=== PATIENT | female | born 1930 | race Caucasian/White ===

== ENCOUNTER → 2016-08-23 | Outpatient (CLI) | payer OTHER, MEDICARE ==
[~2016-08-23] MED LIST: ACET-1256 PO; ALPR0.25 PO; AMOX875T PO; ASCO500T16 PO; B COCAP3 PO; CALC500C70 PO; CITA20TA9 PO; CLB/200 PO; CMD2 PO; DOCU100C31 PO; EVS60 PO; FERR1TAB13 PO; FERR1TAB23 PO; GLUC1CAP35 PO; HYDR-4079 PO; HYDR-5688 PO; MELO7.5T5 PO; MULT-116 PO; MULT-506 PO; NITR1CAP32 PO; NYSS/ PO; PANT40TA PO; RALO60TA12 PO; SENN-61 PO; SIMV40TA4 PO; THIA100T11 PO; WARF2.5T8 PO; WARF2TAB PO; XNX5 PO
[2016-08-23 17:00] LABS: BASO % 0.2 %; BASO ABS # 0.02 K/uL (0-0.2); EOS % 0.7 %; HEMATOCRIT 45.8 % (37-47); IG% 0.1 %; LYMPH % 26.9 %; LYMPH ABS # 2.26 K/uL (1.2-3.4); MEAN CELL VOLUME 85.8 fL (80-100); MEAN CORPUSCULAR HEMOGLOBIN 27.5 pg (25-34); MEAN CORPUSCULAR HGB CONC 32.1 g/dl (32-36); MONO % 5.4 %; NEUT % 66.7 %; PLATELET COUNT 269 K/uL (130-400); RED BLOOD COUNT 5.34 M/uL (4.2-5.4); WHITE BLOOD COUNT 8.41 K/uL (4.8-10.8)
[2016-08-23 17:52] LABS: ANISOCYTOSIS PRESENT; COMPLETE YES
== END | disposition home or self-care (01) ==
LOC: C.LABBC 14:43
PROVIDERS: ATTEND Internal Medicine
DX: D50.9 Iron deficiency anemia, unspecified (principal)

== ENCOUNTER → 2016-10-04 | Outpatient (CLI) | payer OTHER, MEDICARE ==
[2016-10-04 14:53] LABS: BASO % 0.1 %; BASO ABS # 0.01 K/uL (0-0.2); COMPLETE YES; HEMATOCRIT 44.1 % (37-47); IG% 0.2 %; LYMPH % 29.9 %; LYMPH ABS # 2.75 K/uL (1.2-3.4); MEAN CELL VOLUME 89.3 fL (80-100); MEAN CORPUSCULAR HEMOGLOBIN 29.1 pg (25-34); MEAN CORPUSCULAR HGB CONC 32.7 g/dl (32-36); MEAN PLATELET VOLUME 10.2 fL (7.4-10.4); MONO % 6.4 %; NEUT % 62.4 %; PLATELET COUNT 255 K/uL (130-400); RED BLOOD COUNT 4.94 M/uL (4.2-5.4); WHITE BLOOD COUNT 9.21 K/uL (4.8-10.8)
[2016-10-04 15:33] LABS: FERRITIN 27.4 ng/ml (8.0-388.0)
== END | disposition home or self-care (01) ==
LOC: C.LABBC 11:45
PROVIDERS: ATTEND Internal Medicine
DX: D50.9 Iron deficiency anemia, unspecified (principal)

== ENCOUNTER → 2016-11-13 | Outpatient (CLI) | payer OTHER, MEDICARE ==
[~2016-11-13] MED LIST changes: -EVS60 PO; -RALO60TA12 PO; +RALO60TA30 PO; +RALO60TA31 PO
== END | disposition home or self-care (01) ==
LOC: C.RDSM 11:45
PROVIDERS: ATTEND Physical Medicine & Rehabilitation Sports Medicine
DX: M16.11 Unilateral primary osteoarthritis, right hip (principal)

== ENCOUNTER → 2016-11-23 | Outpatient (CLI) | payer OTHER, MEDICARE ==
[2016-11-23 14:59] LABS: BASO % 0.5 %; BASO ABS # 0.04 K/uL (0-0.2); COMPLETE YES; EOS % 2.6 %; HEMATOCRIT 41.2 % (37-47); IG% 0.2 %; LYMPH % 31.8 %; LYMPH ABS # 2.55 K/uL (1.2-3.4); MEAN CELL VOLUME 96.9 fL (80-100); MEAN CORPUSCULAR HEMOGLOBIN 31.3 pg (25-34); MEAN CORPUSCULAR HGB CONC 32.3 g/dl (32-36); MONO % 7.1 %; NEUT % 57.8 %; PLATELET COUNT 275 K/uL (130-400); RED BLOOD COUNT 4.25 M/uL (4.2-5.4); WHITE BLOOD COUNT 8.02 K/uL (4.8-10.8)
[2016-11-23 15:16] LABS: CALCIUM 10.1 mg/dl (8.5-10.1)
[2016-11-23 15:19] LABS: PROTHROMBIN TIME (PATIENT) 10.4 SECONDS (9.0-12.0)
[2016-11-23 15:19] LABS: ALKALINE PHOSPHATASE 78 U/L (45-117); ALT/SGPT 32 U/L (12-78); BLOOD UREA NITROGEN 30 mg/dl (7-18); CARBON DIOXIDE 30 mmol/L (21-32); CHLORIDE 107 mmol/L (98-107); CREATININE 0.83 mg/dl (0.60-1.20); GLUCOSE 85 mg/dl (70-99); POTASSIUM 4.1 mmol/L (3.5-5.1); SODIUM 142 mmol/L (136-145); TOTAL IRON BINDING CAPACITY 385 mcg/dl (250-450)
[2016-11-23 15:32] LABS: ALB/GLOB RATIO 1.1 (0.9-2); AST/SGOT 24 U/L (15-37); FERRITIN 41.5 ng/ml (8.0-388.0)
== END | disposition home or self-care (01) ==
LOC: C.LABBC 12:21
PROVIDERS: ATTEND Internal Medicine
DX: D50.9 Iron deficiency anemia, unspecified (principal)

== ENCOUNTER 2016-12-24 04:01 | Inpatient (IN) | payer OTHER, MEDICARE ==
[~2016-12-24] VITALS: Ht 160 cm; Wt 60.7 kg
[~2016-12-24 04:01] MED LIST changes: -ALPR0.25 PO; -AMOX875T PO; -ASCO500T16 PO; -CITA20TA9 PO; -CLB/200 PO; -CMD2 PO; -DOCU100C31 PO; -FERR1TAB13 PO; -FERR1TAB23 PO; -GLUC1CAP35 PO; -HYDR-4079 PO; -MELO7.5T5 PO; -MULT-116 PO; -NITR1CAP32 PO; -NYSS/ PO; -PANT40TA PO; -RALO60TA30 PO; -SENN-61 PO; -THIA100T11 PO; -WARF2.5T8 PO
[2016-12-24] MEDS ORDERED: ONDANSETRON INJ 2 MG/ML 2 ML VIAL IV STA (04:22)
[2016-12-24] MEDS ORDERED: SODIUM CHLORIDE 0.9% 1000ML 1,000 ML IV STA ×2 (04:22)
[2016-12-24] MEDS ORDERED: ACETAMINOPHEN 500 MG TAB PO STA (04:22)
[2016-12-24] MEDS ORDERED: IMIPENEM/CILASTATIN IV 500 MG in DEXTROSE 5% 100ML 100 ML IV STA (04:47)
[2016-12-24 04:49] LABS: BASO % 0.1 %; BASO ABS # 0.02 K/uL (0-0.2); COMPLETE YES; EOS % 4.6 %; HEMATOCRIT 38.2 % (37-47); IG% 0.3 %; LYMPH % 1.9 %; LYMPH ABS # 0.26 K/uL (1.2-3.4); MEAN CELL VOLUME 94.6 fL (80-100); MEAN CORPUSCULAR HEMOGLOBIN 30.4 pg (25-34); MEAN CORPUSCULAR HGB CONC 32.2 g/dl (32-36); MEAN PLATELET VOLUME 9.2 fL (7.4-10.4); MONO % 5.5 %; NEUT % 87.6 %; PLATELET COUNT 239 K/uL (130-400); RED BLOOD COUNT 4.04 M/uL (4.2-5.4)
--- NOTE | 2016-12-24 04:57 | EMERGENCY ROOM VISIT NOTE ---
ED Visit Note First contact with patient: 04:16 I agree with the physician assistants workup of this patient. Patient was seen by me at bedside at 4:50 AM. I spoke with the patient's family there is a concern for the patient to be septic possibility of urinary tract infection she is status post surgery and recently had a urinary tract infection with multiple different antibiotics but no reported urine culture performed. Patient is tachycardic but normotensive at 4:56 AM we will work the patient up to make sure that she does not have a significant infection Current/Historical Medications Scheduled B Complex W/ C (Vitamin B Complex-C), 1 CAP PO BID Calcium/Vitamin D (Os-Ari 500 Plus D), 1 TAB PO BID Multivitamin (Multivitamin), 1 TAB PO BID Raloxifene (Evista), 1 TAB PO Q2D Simvastatin (Zocor), 40 MG PO Q2D Warfarin Sodium (Coumadin), 4 MG PO DAILY Scheduled PRN Acetaminophen (Tylenol), 2 TAB PO BID PRN for Pain Alprazolam (Alprazolam), 1 DOSE PO UD PRN for ANXIETY Hydrocodone/Acetaminophen 5MG/325MG (K[place]haw 5MG/325MG), 1-2 TABLETS PO Q6 PRN for Pain Allergies Coded Allergies: No Known Allergies (Unverified , 12/20/16) Vital Signs Date Time Temp Pulse Resp B/P (MAP) Pulse Ox O2 Delivery O2 Flow Rate FiO2 12/24/16 04:45 97 Nasal Cannula 2.0 Laboratory Results 12/24/16 04:20 Red Blood Count 4.04, Mean Corpuscular Volume 94.6, Mean Corpuscular Hemoglobin 30.4, Mean Corpuscular Hemoglobin Concent 32.2, Mean Platelet Volume 9.2, Neutrophils (%) (Auto) 87.6, Lymphocytes (%) (Auto) 1.9, Monocytes (%) (Auto) 5.5, Eosinophils (%) (Auto) 4.6, Basophils (%) (Auto) 0.1, Neutrophils # (Auto) 12.27, Lymphocytes # (Auto) 0.26, Monocytes # (Auto) 0.77, Eosinophils # (Auto) 0.64, Basophils # (Auto) 0.02 Test 12/24/16 04:20 12/24/16 04:38 White Blood Count 14.00 K/uL (4.8-10.8) Red Blood Count 4.04 M/uL (4.2-5.4) Hemoglobin 12.3 g/dL (12.0-16.0) Hematocrit 38.2 % (37-47) Mean Corpuscular Volume 94.6 fL (80-100) Mean Corpuscular Hemoglobin 30.4 pg (25-34) Mean Corpuscular Hemoglobin Concent 32.2 g/dl (32-36) Platelet Count 239 K/uL (130-400) Mean Platelet Volume 9.2 fL (7.4-10.4) Neutrophils (%) (Auto) 87.6 % Lymphocytes (%) (Auto) 1.9 % Monocytes (%) (Auto) 5.5 % Eosinophils (%) (Auto) 4.6 % Basophils (%) (Auto) 0.1 % Neutrophils # (Auto) 12.27 K/uL (1.4-6.5) Lymphocytes # (Auto) 0.26 K/uL (1.2-3.4) Monocytes # (Auto) 0.77 K/uL (0.11-0.59) Eosinophils # (Auto) 0.64 K/uL (0-0.5) Basophils # (Auto) 0.02 K/uL (0-0.2) RDW Standard Deviation 46.3 fL (36.4-46.3) RDW Coefficient of Variation 13.3 % (11.5-14.5) Immature Granulocyte % (Auto) 0.3 % Immature Granulocyte # (Auto) 0.04 K/uL (0.00-0.02) Bedside Lactic Acid Venous 1.17 mmol/L (0.90-1.70) Departure Information Referrals Jhoan Mullen M.D. (PCP) Patient Instructions My [facility] [address]
[2016-12-24 04:59] LABS: PARTIAL THROMBOPLASTIN RATIO 1.4; PROTHROMBIN TIME (PATIENT) 22.6 SECONDS (9.0-12.0)
[2016-12-24 05:23] LABS: ALT/SGPT 22 U/L (12-78); AST/SGOT 24 U/L (15-37); BLOOD UREA NITROGEN 24 mg/dl (7-18); BUN/CREATININE RATIO 24.8 (10-20); CALCIUM 8.7 mg/dl (8.5-10.1); CARBON DIOXIDE 28 mmol/L (21-32); CHLORIDE 102 mmol/L (98-107); CREATININE 0.95 mg/dl (0.60-1.20); GLUCOSE 123 mg/dl (70-99); MAGNESIUM 2.1 mg/dl (1.8-2.4); POTASSIUM 4.1 mmol/L (3.5-5.1); SODIUM 138 mmol/L (136-145)
[2016-12-24] MEDS ORDERED: DAPTOMYCIN IV STA (05:23)
[2016-12-24] MEDS ORDERED: SODIUM CHLORIDE 0.9% IV STA (05:23)
[2016-12-24] MEDS ORDERED: ALPRAZOLAM 0.5 MG TAB PO STA (05:28)
[2016-12-24 05:34] LABS: ALB/GLOB RATIO 0.7 (0.9-2); ALKALINE PHOSPHATASE 78 U/L (45-117); THYROID STIMULATING HORMONE 0.653 uIu/ml (0.300-4.500)
[2016-12-24] MEDS ORDERED: DOCU100C31 PO (05:57)
[2016-12-24] MEDS ORDERED: MULT-116 PO (05:58)
[2016-12-24] MEDS ORDERED: NITR1CAP32 PO (06:00)
[2016-12-24] MEDS ORDERED: RALO60TA30 PO (06:04)
[2016-12-24] MEDS ORDERED: WARF2.5T8 PO (06:07)
--- NOTE | 2016-12-24 06:10 | EMERGENCY ROOM VISIT NOTE ---
History First contact with patient: 04:16 Chief Complaint: FEVER Stated Complaint: FEVER History of Present Illness The patient is a 86 year old female who presents to the Emergency Room with complaints of fever, headache, myalgias, nausea for the past day. Patient had hip replacement surgery 3 days ago. She had a UTI prior to the surgery. Patient was started on Macrobid yesterday by the [facility]. Patient states her symptoms got much worse. Patient denies chest pain, dyspnea, abdominal pain, vomiting, diarrhea, back pain, neck stiffness, sore throat, cough. Review of Systems See HPI for pertinent positives & negatives. A total of 10 systems reviewed and were otherwise negative. Past Medical/Surgical History Medical Problems: (1) DJD (degenerative joint disease) of hip Anxiety, depression, hyperlipidemia, osteoporosis Family History Emphysema Heart disease Social History Smoking Status: Never Smoker Drug Use: none Marital Status: Housing Status: lives with family Occupation Status: retired Current/Historical Medications Scheduled B Complex W/ C (Vitamin B Complex-C), 1 CAP PO BID Calcium/Vitamin D (Os-Ari 500 Plus D), 1 TAB PO BID Docusate Sodium (Docusate Sodium), 100 MG PO BID Multiple Vitamins W/ Minerals (Theragran-M), 1 TAB PO QAM Multivitamin (Multivitamin), 1 TAB PO BID Nitrofurantoin Macrocrystals (Macrodantin), 100 MG PO BID Raloxifene (Evista), 1 TAB PO Q2D Raloxifene Hcl (Evista), 60 MG PO Q2D Simvastatin (Zocor), 40 MG PO Q2D Warfarin Sod (Jantoven), 2.5 MG PO DAILY Warfarin Sodium (Coumadin), 4 MG PO DAILY Scheduled PRN Acetaminophen (Tylenol), 2 TAB PO BID PRN for Pain Alprazolam (Alprazolam), 1 DOSE PO UD PRN for ANXIETY Hydrocodone/Acetaminophen 5MG/325MG ([place] 5MG/325MG), 1-2 TABLETS PO Q6 PRN for Pain Allergies Coded Allergies: No Known Allergies (Unverified , 12/20/16) Physical Exam Vital Signs Date Time Temp Pulse Resp B/P (MAP) Pulse Ox O2 Delivery O2 Flow Rate FiO2 12/24/16 05:11 122 21 147/68 97 Nasal Cannula 2.0 12/24/16 04:45 97 Nasal Cannula 2.0 12/24/16 04:15 88 Room Air 12/24/16 04:15 39.5 130 20 134/63 95 Nasal Cannula 2.0 Physical Exam VITALS: Vitals are noted on the nurse's note and reviewed by myself. Vital signs tachycardic. GENERAL: Pleasant elderly female mildly ill-appearing SKIN: The skin was without rashes, erythema, edema, or bruising. There is no tenting of the skin. Capillary reflex less than 2 seconds. HEAD: Normocephalic atraumatic. EARS: External auditory canals clear, tympanic membranes pearly cueva without erythema or effusion bilaterally. EYES: Pupils equal round and reactive to light and accommodation. Conjunctivae without injection, sclerae without icterus. Extraocular movements intact. NOSE: Patent, turbinates without inflammation or discharge. No sinus tenderness. MOUTH: Mucous membranes mildly dry pharynx without erythema or exudate. Uvula midline. Airway patent. Tongue does not deviate. NECK: Supple without nuchal rigidity. No lymphadenopathy. No thyromegaly. Cervical spine is nontender. No JVD. HEART: Regular rate and rhythm, tachycardic LUNGS: Clear to auscultation bilaterally without wheezes, rales or rhonchi. No dullness to percussion. No retractions or accessory muscle use. ABDOMEN: Positive bowel sounds x 4. Normal tympanic percussion. Soft, nontender, without masses or organomegaly. Ragsdale sign negative. No guarding or rebound tenderness. MUSCULOSKELETAL: No muscle atrophy, erythema, or edema noted. Right hip anne in place without signs of infection NEURO: Patient was alert and oriented to person place and time. Normal sensation to light and sharp touch. No focal neurological deficits. Medical Decision & Procedures Laboratory Results 12/24/16 04:20 Red Blood Count 4.04, Mean Corpuscular Volume 94.6, Mean Corpuscular Hemoglobin 30.4, Mean Corpuscular Hemoglobin Concent 32.2, Mean Platelet Volume 9.2, Neutrophils (%) (Auto) 87.6, Lymphocytes (%) (Auto) 1.9, Monocytes (%) (Auto) 5.5, Eosinophils (%) (Auto) 4.6, Basophils (%) (Auto) 0.1, Neutrophils # (Auto) 12.27, Lymphocytes # (Auto) 0.26, Monocytes # (Auto) 0.77, Eosinophils # (Auto) 0.64, Basophils # (Auto) 0.02 12/24/16 04:20 Test 12/24/16 04:20 12/24/16 04:38 White Blood Count 14.00 K/uL (4.8-10.8) Red Blood Count 4.04 M/uL (4.2-5.4) Hemoglobin 12.3 g/dL (12.0-16.0) Hematocrit 38.2 % (37-47) Mean Corpuscular Volume 94.6 fL (80-100) Mean Corpuscular Hemoglobin 30.4 pg (25-34) Mean Corpuscular Hemoglobin Concent 32.2 g/dl (32-36) Platelet Count 239 K/uL (130-400) Mean Platelet Volume 9.2 fL (7.4-10.4) Neutrophils (%) (Auto) 87.6 % Lymphocytes (%) (Auto) 1.9 % Monocytes (%) (Auto) 5.5 % Eosinophils (%) (Auto) 4.6 % Basophils (%) (Auto) 0.1 % Neutrophils # (Auto) 12.27 K/uL (1.4-6.5) Lymphocytes # (Auto) 0.26 K/uL (1.2-3.4) Monocytes # (Auto) 0.77 K/uL (0.11-0.59) Eosinophils # (Auto) 0.64 K/uL (0-0.5) Basophils # (Auto) 0.02 K/uL (0-0.2) RDW Standard Deviation 46.3 fL (36.4-46.3) RDW Coefficient of Variation 13.3 % (11.5-14.5) Immature Granulocyte % (Auto) 0.3 % Immature Granulocyte # (Auto) 0.04 K/uL (0.00-0.02) Prothrombin Time 22.6 SECONDS (9.0-12.0) Prothromb Time International Ratio 2.0 (0.9-1.1) Activated Partial Thromboplast Time 35.5 SECONDS (21.0-31.0) Partial Thromboplastin Ratio 1.4 Anion Gap 8.0 mmol/L (3-11) Est Creatinine Clear Calc Drug Dose 36.5 ml/min Estimated GFR () 63.7 Estimated GFR (Non- 55.0 BUN/Creatinine Ratio 24.8 (10-20) Calcium Level 8.7 mg/dl (8.5-10.1) Magnesium Level 2.1 mg/dl (1.8-2.4) Total Bilirubin 0.6 mg/dl (0.2-1) Aspartate Amino Transf (AST/SGOT) 24 U/L (15-37) Alanine Aminotransferase (ALT/SGPT) 22 U/L (12-78) Alkaline Phosphatase 78 U/L (45-117) Troponin I < 0.015 ng/ml (0-0.045) Total Protein 6.9 gm/dl (6.4-8.2) Albumin 2.8 gm/dl (3.4-5.0) Globulin 4.1 gm/dl (2.5-4.0) Albumin/Globulin Ratio 0.7 (0.9-2) Thyroid Stimulating Hormone (TSH) 0.653 uIu/ml (0.300-4.500) Bedside Lactic Acid Venous 1.17 mmol/L (0.90-1.70) Medications Administered Medications (Trade) Dose Ordered Sig/Alexa Route Start Time Stop Time Status Last Admin Dose Admin Acetaminophen (Tylenol Tab) 1,000 mg NOW STAT PO 12/24/16 04:22 12/24/16 04:24 DC 12/24/16 05:55 1,000 MG Ondansetron HCl (Zofran Inj) 4 mg NOW STAT IV 12/24/16 04:22 12/24/16 04:24 DC 12/24/16 05:33 4 MG Sodium Chloride 1,000 ml @ 999 mls/hr Q1H1M STAT IV 12/24/16 04:22 12/24/16 05:22 DC 12/24/16 05:34 999 MLS/HR Alprazolam (Xanax Tab) 0.5 mg NOW STAT PO 12/24/16 05:28 12/24/16 05:29 DC 12/24/16 05:55 0.5 MG ED Course Prior records/ancillary studies reviewed. Triage Nursing notes reviewed. Additional history obtained from family. The patient's history was concerning for fever. Differential diagnosis: Etiologies such as sepsis, UTI, pneumonia, metabolic, electrolyte abnormalities , cardiac sources, intracerebral event, toxicologic, neurologic, as well as others were entertained. Physical examination: As above. Pertinent findings were tachycardic, hypoxic. Vital signs reviewed and revealed febrile, hypoxic. ER treatment provided: IV fluid resuscitation with Normal saline solution, 1000 mL bolus. IV fluid hydration with Normal saline solution at 125 mL/hr. Blood and urine cultures Antibiotics: Primaxin, daptomycin On reassessment the patient vital signs improved. Diagnostics interpretation by me: ECG: Normal sinus, normal intervals, right bundle branch block, no acute ST-T wave changes, rate of 127. Impression right bundle branch block sinus tachycardia interpreted by myself The labs revealed leukocytosis on CBC. Chemistry panel revealed hyperglycemia without DKA. LFTs revealed. Cardiac enzymes were negative. Serum Lactate measurement was negative Blood and urine cultures are pending. Imaging studies: Chest xray revealed no pneumothorax, free air or consolidation per my interpretation Exam and history seem consistent with sepsis. Patient was started on antibiotics and IV fluids. She was reassessed multiple times. She will be evaluated by medicine for possible admission. Pt was unable to give a urine. This is most likely the source. She will be evaluated by medicine. Consultation: A consultation was placed with Dr Bower, hospitalist. The case was discussed and diagnostics were reviewed. The patient was evaluated in the ER for further treatment. Case reviewed with my attending Medical Decision As above Impression Primary Impression: Sepsis Departure Information Dispostion Being Evaluated By Hospitalist Condition FAIR Referrals Jhoan Mullen M.D. (PCP) Patient Instructions My [facility] Problem Qualifiers Primary Impression: Sepsis Sepsis type: sepsis due to unspecified organism Qualified Codes: A41.9 - Sepsis, unspecified organism
[2016-12-24] MEDS ORDERED: HYDR-4079 PO (06:13)
[2016-12-24] MEDS ORDERED: HYDR-5688 PO (06:14)
[2016-12-24] MEDS ORDERED: SENN-61 PO (06:17)
[2016-12-24] MEDS ORDERED: THIA100T11 PO (06:20)
[2016-12-24] MEDS ORDERED: ASCO500T16 PO (06:21)
[2016-12-24] MEDS ORDERED: IBUPROFEN 600 MG TAB PO STA (06:28)
[2016-12-24] MEDS ORDERED: ONDANSETRON INJ 2 MG/ML 2 ML VIAL IV PRN (06:30)
--- NOTE | 2016-12-24 06:41 | History and Physical ---
History & Physical Date & Time of Service: Dec 24, 2016 at 06:23 Chief Complaint: FEVER Primary Care Physician: Jhoan Mullen M.D. History of Present Illness Source: patient, family 86-year-old female with a past medical history of hyperlipidemia, osteopenia, anxiety and depression status post right hip replacement performed 3 days ago presented to the ER with complaints of fever and chills which started yesterday. The patient was currently at [facility]. Complains of fevers and chills with abdominal cramping. Has some nausea but no episodes of vomiting. Denies any diarrhea. Denies any coughing, difficulty breathing, chest pain. She denies any excessive pain along the incision site of her hip and has been working with PT without any difficulty. She was treated for urinary tract infection prior to the surgery. Per ER notes, she was treated with Macrobid at [facility] yesterday she was shivering Past Medical/Surgical History Anxiety, depression, hyperlipidemia, osteopenia, right hip replacement Family History Emphysema Heart disease Social History Smoking Status: Never Smoker Drug Use: none Marital Status: Occupational Status: retired Multi-Drug Resistant Organisms History of MDRO: No Allergies Coded Allergies: No Known Allergies (Unverified , 12/20/16) Home Medications Scheduled Ascorbic Acid (Ascorbic Acid), Unknown Dose PO BID Calcium/Vitamin D (Os-Ari 500 Plus D), 1 TAB PO BID Docusate Sodium (Docusate Sodium), 100 MG PO BID Multiple Vitamins W/ Minerals (Theragran-M), 1 TAB PO QAM Nitrofurantoin Macrocrystals (Macrodantin), 100 MG PO BID Raloxifene Hcl (Evista), 60 MG PO Q2D Simvastatin (Zocor), 40 MG PO Q2D Thiamine Hcl (Vitamin B-1), Unknown Dose PO BID Warfarin Sod (Jantoven), 2.5 MG PO DAILY Scheduled PRN Acetaminophen (Tylenol), 2 TAB PO BID PRN for Pain Alprazolam (Alprazolam), 1 DOSE PO DAILY PRN for ANXIETY Hydrocodone/Acetaminophen 10MG/325MG ([place] 10MG/325MG), 1 TAB PO Q4H PRN for PAIN # 7-10 Hydrocodone/Acetaminophen 5MG/325MG ([place] 5MG/325MG), 1 TABLET PO Q4H PRN for PAIN # 4-6 Senna (Senokot), 1 TAB PO DAILY PRN for Constipation Review of Systems Constitutional: + fever, + chills, + sweats Eyes: No worsening of vision ENT: + hearing loss Respiratory: No cough, No sputum, No shortness of breath Cardiovascular: No chest pain Abdomen: + problem reported (lower abdominal cramping) Musculoskeletal: No joint pain, No muscle pain Genitourinary - Female: No dysuria, No urinary frequency, No urinary urgency Neurologic: No memory loss Psychiatric: No depression symptoms Endocrine: No fatigue Hematologic / Lymphatic: No abnormal bleeding/bruising Integumentary: + rash (lower extemities) Physical Exam Vital Signs Date Time Temp Pulse Resp B/P (MAP) Pulse Ox O2 Delivery O2 Flow Rate FiO2 12/24/16 05:11 122 21 147/68 97 Nasal Cannula 2.0 12/24/16 04:45 97 Nasal Cannula 2.0 12/24/16 04:15 88 Room Air 12/24/16 04:15 39.5 130 20 134/63 95 Nasal Cannula 2.0 General Appearance: WD/WN, + mild distress Head: normocephalic ENT: + pertinent finding (hearing loss) Neck: supple Respiratory/Chest: chest non-tender, lungs clear, normal breath sounds, no respiratory distress, no accessory muscle use Cardiovascular: + tachycardia Abdomen/GI: normal bowel sounds, soft, + tenderness (mild suprapubic) Extremities/Musculoskelatal: no pedal edema Neurologic/Psych: alert, normal mood/affect, oriented x 3 Skin: + rash (lacy maclar rash on lower extremities) Diagnostics Laboratory Results Results Past 24 Hours Test 12/24/16 04:20 12/24/16 04:38 Range/Units White Blood Count 14.00 4.8-10.8 K/uL Red Blood Count 4.04 4.2-5.4 M/uL Hemoglobin 12.3 12.0-16.0 g/dL Hematocrit 38.2 37-47 % Mean Corpuscular Volume 94.6 80-100 fL Mean Corpuscular Hemoglobin 30.4 25-34 pg Mean Corpuscular Hemoglobin Concent 32.2 32-36 g/dl Platelet Count 239 130-400 K/uL Mean Platelet Volume 9.2 7.4-10.4 fL Neutrophils (%) (Auto) 87.6 % Lymphocytes (%) (Auto) 1.9 % Monocytes (%) (Auto) 5.5 % Eosinophils (%) (Auto) 4.6 % Basophils (%) (Auto) 0.1 % Neutrophils # (Auto) 12.27 1.4-6.5 K/uL Lymphocytes # (Auto) 0.26 1.2-3.4 K/uL Monocytes # (Auto) 0.77 0.11-0.59 K/uL Eosinophils # (Auto) 0.64 0-0.5 K/uL Basophils # (Auto) 0.02 0-0.2 K/uL RDW Standard Deviation 46.3 36.4-46.3 fL RDW Coefficient of Variation 13.3 11.5-14.5 % Immature Granulocyte % (Auto) 0.3 % Immature Granulocyte # (Auto) 0.04 0.00-0.02 K/uL Prothrombin Time 22.6 9.0-12.0 SECONDS Prothromb Time International Ratio 2.0 0.9-1.1 Activated Partial Thromboplast Time 35.5 21.0-31.0 SECONDS Partial Thromboplastin Ratio 1.4 Sodium Level 138 136-145 mmol/L Potassium Level 4.1 3.5-5.1 mmol/L Chloride Level 102 98-107 mmol/L Carbon Dioxide Level 28 21-32 mmol/L Anion Gap 8.0 3-11 mmol/L Blood Urea Nitrogen 24 7-18 mg/dl Creatinine 0.95 0.60-1.20 mg/dl Est Creatinine Clear Calc Drug Dose 36.5 ml/min Estimated GFR () 63.7 Estimated GFR (Non- 55.0 BUN/Creatinine Ratio 24.8 10-20 Random Glucose 123 70-99 mg/dl Calcium Level 8.7 8.5-10.1 mg/dl Magnesium Level 2.1 1.8-2.4 mg/dl Total Bilirubin 0.6 0.2-1 mg/dl Aspartate Amino Transf (AST/SGOT) 24 15-37 U/L Alanine Aminotransferase (ALT/SGPT) 22 12-78 U/L Alkaline Phosphatase 78 45-117 U/L Troponin I < 0.015 0-0.045 ng/ml Total Protein 6.9 6.4-8.2 gm/dl Albumin 2.8 3.4-5.0 gm/dl Globulin 4.1 2.5-4.0 gm/dl Albumin/Globulin Ratio 0.7 0.9-2 Thyroid Stimulating Hormone (TSH) 0.653 0.300-4.500 uIu/ml Bedside Lactic Acid Venous 1.17 0.90-1.70 mmol/L Microbiology Results 12/24/16 Blood Culture, Received Pending 12/24/16 Blood Culture, Received Pending EKG Sinus tachycardia with occasional PVC. RBBB [id number] Impression Assessment and Plan 86-year-old female with a past medical history of hyperlipidemia, osteopenia, anxiety and depression status post right hip replacement performed 3 days ago presented to the ER with complaints of fever and chills which started yesterday. The patient was recently admitted for right ОЛЕГ about 3 days ago. She's had recent urinary tract infections, 12/04 positive for Escherichia coli, culture from 12/13 showed mixed nguyen. Fever likely sec to UTI: Has had recurrent urinary tract infections in the recent past - Mild leukocytosis at 14K - Lactic acid at 1.17 - UA, UC, BC pending - Continue IV fluids - Continue daptomycin and Primaxin - ID consult Status post right total hip arthroplasty: - Incision appears healthy - Pain control with Troy as needed HLD: - Continue Zocor Osteopenia: - Continue raloxifene Anxiety - Continue Xanax as needed Full code DVT prophylaxis: Coumadin Disposition: admitted to [facility]: Resident Physician Supervision Note: Pt seen/examined independently - daugter present at bedside. I discussed the case with the resident and agree with the findings and plan as documented in the note. Any exceptions or clarifications are listed here: 86 y/o relatively healthy F post recent hip surgery at a rehab facility Was reported to have a UTI treated with surgery pre-op She developed fevers and rigors and was sent to the ER - a temp of 102.5 was confirmed on arrival OE AAO x 3 S1,2 reg tachy CTAB NT ND No evidence of infection over surgical site on R hip P: Susupected UTI however we have not bben able to obtain a urine sample as of yet pending culture results she received Dapto and Primaxin Pts BP is stable and she is receiveing antipyretics and IVF Discussed above with daughter, ER attending, resident Documented By: Pa Bower Level of Care Med/Surg Resuscitation Status FULL RESUSCITATION VTE Prophylaxis Given or contraindicated: Warfarin (Coumadin) Resident Tracking Resident Involvement: Resident Care Provided Care Provided: Adult Hospital Medicine
[2016-12-24] MEDS ORDERED: HYDROCODONE/ACETAMI 10/325 TAB PO PRN (06:45)
[2016-12-24] MEDS ORDERED: SENNA 8.6 MG TAB PO PRN (06:45)
[2016-12-24] MEDS ORDERED: POLYETHYLENE (MIRALAX) 17 GM PACK PO PRN (06:45)
[2016-12-24 07:00] VITALS: O2SAT 93; Ht 160 cm; Wt 60.7 kg
--- NOTE | 2016-12-24 08:09 | DIAGNOSTIC IMAGING REPORT ---
CHEST ONE VIEW PORTABLE CLINICAL HISTORY: Sepsis FEVER COMPARISON STUDY: 12/02/2016 FINDINGS: The cardiac and mediastinal contours are normal. There is no evidence of focal pulmonary consolidation. There is no evidence of failure. No pleural effusions are visualized.[ There is a retrocardiac opacity consistent with a hiatal hernia. IMPRESSION: No active disease in the chest. Electronically signed by: Blayne Gale M.D. 12/24/2016 8:07 AM Dictated Date/Time: 12/24/2016 8:07 AM
[2016-12-24 08:32] VITALS: BP 96/62; PULSE 113; TEMP 37.2; O2SAT 94
[2016-12-24] MEDS ORDERED: SIMVASTATIN 40 MG TAB PO SCH (09:00)
--- NOTE | 2016-12-24 09:09 | HISTORY & PHYSICAL EXAMINATION ---
DATE OF ADMISSION: 12/24/2016 At this point in time, the patient was admitted for fever of unknown origin. She denies any pain in the hips, she is quite comfortable there. She had some abdominal cramping. She states that is gone now. On admission, her temperature was 102.6. She is now afebrile. Detailed examination of her legs revealed no evidence of DVT. There is no major rash on the leg. She had some that prior preop that was assessed, likely felt to be based on her UTI treatment from [facility]. Her incision is clean and dry. There is no collection. There is no pain and the incision actually looks very healthy. There is minimal bruising. Her hip motion is supple and pain free. ASSESSMENT: Fever in a recent postoperative patient, elderly 86-year-old female. Suggest hydration and IV antibiotics until blood cultures and urine cultures obtained per medicine. This is likely based on atelectasis, dehydration and urinary tract. At this point, it does not appear to be related to any orthopedic issues. We will follow as needed. Continue mobilization. Continue hip precautions. PT and OT ordered. Keep INR 1.8-2.2 range.
[2016-12-24] MEDS: SODIUM CHLORIDE 0.9% 1000ML 1,000 ML IV SCH ×3 (09:10→22:33)
[2016-12-24] MEDS ORDERED: IMIPENEM/CILASTATIN CONSULT ACTIVE PRN (10:45)
[2016-12-24] MEDS ORDERED: DAPTOMYCIN CONSULT ACTIVE PRN ×2 (10:45)
[2016-12-24] MEDS: DOCUSATE SODIUM 100 MG CAP PO SCH ×2 (11:38→20:54)
[2016-12-24] MEDS: RALOXIFENE 60 MG TAB PO SCH (11:38)
[2016-12-24 12:09] LABS: MANUAL MICROSCOPIC REQUIRED? NO; REVIEW REQ? YES; URINE APPEARANCE CLEAR (CLEAR); URINE BILIRUBIN NEG (NEG); URINE COLOR DK YELLOW; URINE EPITHELIAL CELL AUTO >30 /lpf (0-5); URINE NITRITE NEG (NEG); UROBILINOGEN NEG (NEG)
[2016-12-24] MEDS: IMIPENEM/CILASTATIN IV 500 MG in DEXTROSE 5% 100ML 100 ML IV SCH ×2 (14:09→21:36)
[2016-12-24] MEDS ORDERED: WARFARIN SOD 2.5 MG TAB PO SCH (16:00)
[2016-12-24 16:01] VITALS: BP 85/54; PULSE 89; TEMP 36.8; O2SAT 94
[2016-12-24] MEDS: WARFARIN SOD 2 MG TAB PO SCH (16:41)
[2016-12-24 20:53] VITALS: TEMP 37.9
[2016-12-24] MEDS: ACETAMINOPHEN 325 MG TAB PO PRN (20:56)
--- NOTE | 2016-12-24 21:05 | Medical Consult ---
Consultation Date of Consultation: Dec 24, 2016. Attending Physician: Arleth Byrd MD Reason for Consultation: UTI History of Present Illness Lolly 86-year-old female with history of hyperlipidemia and osteoporosis, who is 3 days status post right hip replacement, who now presents with fever and chills for 1 day with some nausea and crampy abdominal pain, but no diarrhea. He recently was started on Macrodantin for urinary tract infection. She has been started empirically on daptomycin and imipenem, and cultures are pending. Chest x-ray, read by me, shows no evidence of pneumonia, urinalysis is benign. She has been seen by Orthopedics who feels that there is no evidence of surgical site infection. Past Medical/Surgical History Medical Problems: (1) Sepsis Status: Acute Medical Problems: (1) DJD (degenerative joint disease) of hip (2) Fever Family History Emphysema Heart disease Social History Smoking Status: Never Smoker Drug Use: none Marital Status: Housing Status: lives with family Occupation Status: retired Allergies Coded Allergies: No Known Allergies (Unverified , 12/20/16) Current Inpatient Medications Current Inpatient Medications Medications (Trade) Dose Ordered Sig/Alexa Route Start Time Stop Time Status Last Admin Dose Admin Acetaminophen (Tylenol Tab) 650 mg Q4H PRN PO 12/24/16 06:30 01/23/17 06:29 12/24/16 20:56 650 MG Polyethylene (Miralax Powder Packet) 17 gm DAILY PRN PO 12/24/16 06:45 01/23/17 06:44 Ondansetron HCl (Zofran Inj) 4 mg Q6H PRN IV 12/24/16 06:30 01/23/17 06:29 12/24/16 20:56 4 MG Sodium Chloride 1,000 ml @ 125 mls/hr Q8H IV 12/24/16 06:45 01/23/17 06:44 12/24/16 14:17 125 MLS/HR Daptomycin 350 mg/ Sodium Chloride 57 ml @ 100 mls/hr Q24H IV 12/25/16 06:00 01/04/17 05:59 Imipenem/ Cilastatin Sodium 500 mg/Dextrose 110 ml @ 100 mls/hr Q8H IV 12/24/16 14:00 01/03/17 13:59 12/24/16 14:09 100 MLS/HR Alprazolam (Xanax Tab) 0.5 mg DAILY PRN PO 12/24/16 06:45 01/23/17 06:44 Docusate Sodium (coLACE CAP) 100 mg BID PO 12/24/16 09:30 01/23/17 09:29 12/24/16 20:54 100 MG Acetaminophen/ Hydrocodone Bitart (Luxor 10/325 Tab) 1 tab Q4H PRN PO 12/24/16 06:45 01/07/17 06:44 Acetaminophen/ Hydrocodone Bitart ([place] 5/325 Tab) 1 tab Q4H PRN PO 12/24/16 06:45 01/07/17 06:44 Senna (Senokot Tab) 8.6 mg DAILY PRN PO 12/24/16 06:45 01/23/17 06:44 Warfarin Sodium (Coumadin Tab) 2 mg DAILY@1600 PO 12/24/16 16:00 01/23/17 15:59 12/24/16 16:41 2 MG Simvastatin (Zocor Tab) 40 mg Q2D@0900 PO 12/25/16 09:00 01/24/17 08:59 Raloxifene HCl (Evista Tab) 60 mg Q2D@0900 PO 12/24/16 10:00 01/23/17 09:59 12/24/16 11:38 60 MG Imipenem/ Cilastatin Sodium (Consult) 1 ea UD PRN N/A 12/24/16 10:45 01/23/17 10:44 Daptomycin (Consult) 1 ea UD PRN N/A 12/24/16 10:45 01/23/17 10:44 Review of Systems Constitutional: + fever, + chills, + fatigue Eyes: No problem reported ENT: No problem reported Respiratory: No problem reported Cardiovascular: No problem reported Abdomen: + nausea, No diarrhea Musculoskeletal: + joint pain Genitourinary - Female: No problem reported Neurologic: No problem reported Psychiatric: No problem reported Endocrine: No problem reported Hematologic / Lymphatic: No problem reported Integumentary: No problem reported Allergic / Immunologic: No problem reported Physical Exam Date Time Temp Pulse Resp B/P (MAP) Pulse Ox O2 Delivery O2 Flow Rate FiO2 12/24/16 20:53 37.9 12/24/16 16:01 36.8 89 18 85/54 (64) 94 Room Air 12/24/16 08:32 37.2 113 16 96/62 (73) 94 Nasal Cannula 2.0 12/24/16 07:48 37.6 117 30 102/59 92 12/24/16 07:19 37.6 121 28 107/53 93 Room Air 12/24/16 07:01 126 29 112/59 92 Nasal Cannula 2.0 12/24/16 07:00 93 Room Air 12/24/16 06:01 120 21 151/108 98 Nasal Cannula 2.0 12/24/16 05:11 122 21 147/68 97 Nasal Cannula 2.0 12/24/16 05:01 121 21 97 12/24/16 04:45 97 Nasal Cannula 2.0 12/24/16 04:15 88 Room Air 12/24/16 04:15 39.5 130 20 134/63 95 Nasal Cannula 2.0 12/24/16 04:04 134/63 General Appearance: WD/WN, no apparent distress Head: normocephalic, atraumatic Eyes: normal inspection, EOMI, sclerae normal ENT: normal ENT inspection, pharynx normal Neck: supple, no adenopathy, thyroid normal, trachea midline Respiratory/Chest: chest non-tender, lungs clear, normal breath sounds, no respiratory distress Cardiovascular: regular rate, rhythm, no gallop, no murmur Abdomen/GI: normal bowel sounds, non tender, soft, no organomegaly Back: normal inspection, no CVA tenderness Extremities/Musculoskelatal: no calf tenderness, normal capillary refill, non- tender Neurologic/Psych: alert, oriented x 3 Skin: normal color, warm/dry, no rash, + pertinent finding (Right hip surgical site appears clean ) Lymphatic: no adenopathy Laboratory Results Date/Time Source Procedure Growth Status 12/24/16 04:22 Blood Blood Culture Pending Received 12/24/16 04:20 Blood Blood Culture Pending Received 12/24/16 11:45 Urine , Clean Catch Urine Culture Pending Received Last 24 Hours Test 12/24/16 04:20 12/24/16 04:38 12/24/16 11:45 White Blood Count 14.00 K/uL Red Blood Count 4.04 M/uL Hemoglobin 12.3 g/dL Hematocrit 38.2 % Mean Corpuscular Volume 94.6 fL Mean Corpuscular Hemoglobin 30.4 pg Mean Corpuscular Hemoglobin Concent 32.2 g/dl Platelet Count 239 K/uL Mean Platelet Volume 9.2 fL Neutrophils (%) (Auto) 87.6 % Lymphocytes (%) (Auto) 1.9 % Monocytes (%) (Auto) 5.5 % Eosinophils (%) (Auto) 4.6 % Basophils (%) (Auto) 0.1 % Neutrophils # (Auto) 12.27 K/uL Lymphocytes # (Auto) 0.26 K/uL Monocytes # (Auto) 0.77 K/uL Eosinophils # (Auto) 0.64 K/uL Basophils # (Auto) 0.02 K/uL RDW Standard Deviation 46.3 fL RDW Coefficient of Variation 13.3 % Immature Granulocyte % (Auto) 0.3 % Immature Granulocyte # (Auto) 0.04 K/uL Prothrombin Time 22.6 SECONDS Prothromb Time International Ratio 2.0 Activated Partial Thromboplast Time 35.5 SECONDS Partial Thromboplastin Ratio 1.4 Sodium Level 138 mmol/L Potassium Level 4.1 mmol/L Chloride Level 102 mmol/L Carbon Dioxide Level 28 mmol/L Anion Gap 8.0 mmol/L Blood Urea Nitrogen 24 mg/dl Creatinine 0.95 mg/dl Est Creatinine Clear Calc Drug Dose 36.5 ml/min Estimated GFR () 63.7 Estimated GFR (Non- 55.0 BUN/Creatinine Ratio 24.8 Random Glucose 123 mg/dl Calcium Level 8.7 mg/dl Magnesium Level 2.1 mg/dl Total Bilirubin 0.6 mg/dl Aspartate Amino Transf (AST/SGOT) 24 U/L Alanine Aminotransferase (ALT/SGPT) 22 U/L Alkaline Phosphatase 78 U/L Troponin I < 0.015 ng/ml Total Protein 6.9 gm/dl Albumin 2.8 gm/dl Globulin 4.1 gm/dl Albumin/Globulin Ratio 0.7 Thyroid Stimulating Hormone (TSH) 0.653 uIu/ml Bedside Lactic Acid Venous 1.17 mmol/L Urine Color DK YELLOW Urine Appearance CLEAR Urine pH 6.0 Urine Specific [place] 1.020 Urine Protein NEG Urine Glucose (UA) NEG Urine Ketones 1+ Urine Occult Blood NEG Urine Nitrite NEG Urine Bilirubin NEG Urine Urobilinogen NEG Urine Leukocyte Esterase TRACE Urine WBC (Auto) 5-10 /hpf Urine RBC (Auto) 5-10 /hpf Urine Hyaline Casts (Auto) 1-5 /lpf Urine Epithelial Cells (Auto) >30 /lpf Urine Bacteria (Auto) NEG Urine Renal Epithelial Cells /lpf CHEST ONE VIEW PORTABLE CLINICAL HISTORY: Sepsis FEVER COMPARISON STUDY: 12/02/2016 FINDINGS: The cardiac and mediastinal contours are normal. There is no evidence of focal pulmonary consolidation. There is no evidence of failure. No pleural effusions are visualized.[ There is a retrocardiac opacity consistent with a hiatal hernia. IMPRESSION: No active disease in the chest. Electronically signed by: Blayne Gale M.D. 12/24/2016 8:07 AM Assessment & Plan Fever following recent hip surgery without obvious source at present. UTI seem unlikely given urinalysis. Will continue Abx pending further culture results. Will discuss and follow.
[2016-12-24 22:35] VITALS: TEMP 37
[2016-12-24] MEDS: HYDROCODONE/ACETAMOPHEN 5/325MG TAB PO PRN (22:43)
[2016-12-24] MEDS: ALPRAZOLAM 0.5 MG TAB PO PRN (22:43)
[2016-12-24 23:48] VITALS: BP 90/55; PULSE 105; TEMP 37.1; O2SAT 90
[2016-12-25 06:04] LABS: BASO % 0.1 %; BASO ABS # 0.01 K/uL (0-0.2); COMPLETE YES; EOS % 10.1 %; IG% 0.4 %; LYMPH % 8.3 %; LYMPH ABS # 0.81 K/uL (1.2-3.4); MEAN CELL VOLUME 95.4 fL (80-100); MEAN CORPUSCULAR HEMOGLOBIN 30.9 pg (25-34); MEAN CORPUSCULAR HGB CONC 32.4 g/dl (32-36); MEAN PLATELET VOLUME 8.8 fL (7.4-10.4); MONO % 7.3 %; NEUT % 73.8 %; PLATELET COUNT 214 K/uL (130-400); RED BLOOD COUNT 3.04 M/uL (4.2-5.4); WHITE BLOOD COUNT 9.71 K/uL (4.8-10.8)
[2016-12-25 06:06] LABS: INR 3.2 (0.9-1.1); PROTHROMBIN TIME (PATIENT) 36.4 SECONDS (9.0-12.0)
[2016-12-25] MEDS: SODIUM CHLORIDE 0.9% 1000ML 1,000 ML IV SCH (06:08)
[2016-12-25] MEDS: DAPTOmycin IV 350 MG in SODIUM CHLORIDE 0.9% 50ML 50 ML IV SCH (06:08)
[2016-12-25] MEDS: IMIPENEM/CILASTATIN IV 500 MG in DEXTROSE 5% 100ML 100 ML IV SCH ×3 (06:16→22:26)
[2016-12-25 06:38] LABS: BUN/CREATININE RATIO 23.3 (10-20); CALCIUM 7.5 mg/dl (8.5-10.1); CREATININE 0.71 mg/dl (0.60-1.20); MAGNESIUM 2.3 mg/dl (1.8-2.4); POTASSIUM 3.6 mmol/L (3.5-5.1)
--- NOTE | 2016-12-25 06:52 | PROGRESS NOTE ---
DATE: 12/25/2016 PHYSICAL EXAMINATION: GENERAL: The patient is awake, and alert in bed. She denies any chest pain, shortness of breath, fever, chills, nausea, vomiting or headache. She denies any hip pain. ABDOMEN: Soft, nontender. EXTREMITIES: Without any evidence of DVT. No major rashes noted. Wound dressing clean, dry and intact. Hip range of motion, supple and pain free. Femoral sciatic nerve function is excellent. LABORATORY DATA: Hematocrit is now decreased from 38 to 29, likely based on hydration. She appears a bit puffy as well. INR is 3.2. Hold Coumadin. Chemistry is pending. PLAN: At this point in time, suggest oral hydration only, antibiotics minimize to best choice per ID. There is no obvious source. Cultures are pending. Wound remains clean. No pain in the hip. She does occasionally feel like she has some abdominal cramping. Mobilize PT, OT. Hold Coumadin.
[2016-12-25] MEDS: ALUMINUM/MAGNESIUM SUSP 30 ML UDC PO SCH ×4 (07:21→23:03)
[2016-12-25 07:27] VITALS: BP 100/63; PULSE 86; TEMP 36.3; O2SAT 93
[2016-12-25] MEDS: SIMVASTATIN 40 MG TAB PO SCH (08:00)
[2016-12-25] MEDS: PANTOprazole SOD 40 MG TAB PO SCH (08:00)
[2016-12-25] MEDS: DOCUSATE SODIUM 100 MG CAP PO SCH ×2 (08:00→20:16)
[2016-12-25] MEDS ORDERED: NURSING VERBAL MED ORDER ONE (08:30)
[2016-12-25] MEDS ORDERED: RALOXIFENE 60 MG TAB PO SCH (09:00)
--- NOTE | 2016-12-25 09:52 | Infectious Disease Progress Nt ---
Progress Note Date of Service Dec 25, 2016. Subjective Pt evaluation today including: conversation w/ patient, physical exam, chart review, lab review, review of studies, conversation w/ [employer] security consultant, review of inpatient medication list Pt. feeling better today. C/O fatigue and mild dizziness. Afebrile with improved WBC. No other new complaints. Cultures negative to date. All Other Systems: Reviewed and Negative Medications Current Inpatient Medications Medications (Trade) Dose Ordered Sig/Alexa Route Start Time Stop Time Status Last Admin Dose Admin Acetaminophen (Tylenol Tab) 650 mg Q4H PRN PO 12/24/16 06:30 01/23/17 06:29 12/24/16 20:56 650 MG Polyethylene (Miralax Powder Packet) 17 gm DAILY PRN PO 12/24/16 06:45 01/23/17 06:44 Ondansetron HCl (Zofran Inj) 4 mg Q6H PRN IV 12/24/16 06:30 01/23/17 06:29 12/24/16 20:56 4 MG Daptomycin 350 mg/ Sodium Chloride 57 ml @ 100 mls/hr Q24H IV 12/25/16 06:00 01/04/17 05:59 12/25/16 06:08 100 MLS/HR Imipenem/ Cilastatin Sodium 500 mg/Dextrose 110 ml @ 100 mls/hr Q8H IV 12/24/16 14:00 01/03/17 13:59 12/25/16 06:16 100 MLS/HR Alprazolam (Xanax Tab) 0.5 mg DAILY PRN PO 12/24/16 06:45 01/23/17 06:44 12/24/16 22:43 0.5 MG Docusate Sodium (coLACE CAP) 100 mg BID PO 12/24/16 09:30 01/23/17 09:29 12/25/16 08:00 100 MG Acetaminophen/ Hydrocodone Bitart ([place] 5/325 Tab) 1 tab Q4H PRN PO 12/24/16 06:45 01/07/17 06:44 12/24/16 22:43 1 TAB Senna (Senokot Tab) 8.6 mg DAILY PRN PO 12/24/16 06:45 01/23/17 06:44 12/25/16 08:01 8.6 MG Warfarin Sodium (Coumadin Tab) 2 mg DAILY@1600 PO 12/24/16 16:00 01/23/17 15:59 Future hold 12/24/16 16:41 2 MG Simvastatin (Zocor Tab) 40 mg Q2D@0900 PO 12/25/16 09:00 01/24/17 08:59 12/25/16 08:00 40 MG Raloxifene HCl (Evista Tab) 60 mg Q2D@0900 PO 12/24/16 10:00 01/23/17 09:59 12/24/16 11:38 60 MG Imipenem/ Cilastatin Sodium (Consult) 1 ea UD PRN N/A 12/24/16 10:45 01/23/17 10:44 Daptomycin (Consult) 1 ea UD PRN N/A 12/24/16 10:45 01/23/17 10:44 Pantoprazole Sodium (Protonix Tab) 40 mg QAM PO 12/25/16 08:00 01/24/17 07:59 12/25/16 08:00 40 MG Al Hydroxide/Mg Hydroxide (Maalox Susp) 15 ml Q6@0000,0600,1200,1800 PO 12/25/16 07:00 01/24/17 06:59 12/25/16 07:21 15 ML Objective Vital Signs Date Time Temp Pulse Resp B/P (MAP) Pulse Ox O2 Delivery O2 Flow Rate FiO2 12/25/16 08:00 Room Air 12/25/16 07:27 36.3 86 17 100/63 (75) 93 Room Air 12/25/16 00:00 Room Air 12/24/16 23:48 37.1 105 20 90/55 (67) 90 Room Air 12/24/16 22:35 37.0 12/24/16 21:49 Room Air 12/24/16 20:53 37.9 12/24/16 16:01 36.8 89 18 85/54 (64) 94 Room Air Physical Exam General Appearance: WD/WN, no apparent distress Eyes: normal inspection, sclerae normal ENT: normal ENT inspection, pharynx normal Neck: supple, no adenopathy, trachea midline Respiratory/Chest: chest non-tender, lungs clear, normal breath sounds, no respiratory distress Cardiovascular: regular rate, rhythm, no gallop, no murmur Abdomen: normal bowel sounds, non tender, soft, no organomegaly Extremities: non-tender, no calf tenderness Neurologic/Psychiatric: alert, normal mood/affect, oriented x 3 Skin: normal color, no rash, + pertinent finding (surgical site clean) Lymphatic: no adenopathy Laboratory Results RUN DATE: 12/25/16 [facility] PAGE 1 RUN TIME: 744 Specimen Inquiry PATIENT: MAGALY ALEXANDER LOC: [email or web address] U # : [id number] AGE/SX: 86/F ROOM: 20 REG : 12/24/[address]: Arleth Byrd MD : 1930 BED: 1 DIS : STATUS: ADM IN TLOC: SPEC #: [id number] JUS: 12/24/16 STATUS: RES REQ #: [id number] RECD: 12/24/[address]: Bre Aceves PA-C SOURCE: BLOOD ENTR: 12/24/16 CURTIS BETTENCOURT: Flaquito Vides DO [facility]: Jhoan Mullen M.D. ORDERED: BLOOD CULTURE Procedure Result Verified Site BLD CULT Preliminary 12/25/16-743 NO GROWTH TO DATE. Last 24 Hours Test 12/24/16 11:45 12/25/16 05:35 Urine Color DK YELLOW Urine Appearance CLEAR Urine pH 6.0 Urine Specific [place] 1.020 Urine Protein NEG Urine Glucose (UA) NEG Urine Ketones 1+ Urine Occult Blood NEG Urine Nitrite NEG Urine Bilirubin NEG Urine Urobilinogen NEG Urine Leukocyte Esterase TRACE Urine WBC (Auto) 5-10 /hpf Urine RBC (Auto) 5-10 /hpf Urine Hyaline Casts (Auto) 1-5 /lpf Urine Epithelial Cells (Auto) >30 /lpf Urine Bacteria (Auto) NEG Urine Renal Epithelial Cells /lpf White Blood Count 9.71 K/uL Red Blood Count 3.04 M/uL Hemoglobin 9.4 g/dL Hematocrit 29.0 % Mean Corpuscular Volume 95.4 fL Mean Corpuscular Hemoglobin 30.9 pg Mean Corpuscular Hemoglobin Concent 32.4 g/dl Platelet Count 214 K/uL Mean Platelet Volume 8.8 fL Neutrophils (%) (Auto) 73.8 % Lymphocytes (%) (Auto) 8.3 % Monocytes (%) (Auto) 7.3 % Eosinophils (%) (Auto) 10.1 % Basophils (%) (Auto) 0.1 % Neutrophils # (Auto) 7.16 K/uL Lymphocytes # (Auto) 0.81 K/uL Monocytes # (Auto) 0.71 K/uL Eosinophils # (Auto) 0.98 K/uL Basophils # (Auto) 0.01 K/uL RDW Standard Deviation 48.4 fL RDW Coefficient of Variation 13.8 % Immature Granulocyte % (Auto) 0.4 % Immature Granulocyte # (Auto) 0.04 K/uL Prothrombin Time 36.4 SECONDS Prothromb Time International Ratio 3.2 Sodium Level 143 mmol/L Potassium Level 3.6 mmol/L Chloride Level 110 mmol/L Carbon Dioxide Level 27 mmol/L Anion Gap 6.0 mmol/L Blood Urea Nitrogen 17 mg/dl Creatinine 0.71 mg/dl Est Creatinine Clear Calc Drug Dose 48.8 ml/min Estimated GFR () 90.7 Estimated GFR (Non- 78.2 BUN/Creatinine Ratio 23.3 Random Glucose 85 mg/dl Calcium Level 7.5 mg/dl Magnesium Level 2.3 mg/dl Assessment and Plan Fever following recent hip surgery without obvious source at present. UTI seem unlikely given urinalysis. Will continue Abx pending final culture results. 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 Will discuss and follow.
[2016-12-25] MEDS: HYDROCODONE/ACETAMOPHEN 5/325MG TAB PO PRN ×2 (10:35→16:06)
--- NOTE | 2016-12-25 13:38 | Progress Note ---
Subjective Date of Service: Dec 25, 2016. Subjective Pt evaluation today including: conversation w/ patient, conversation w/ family , physical exam, lab review, review of studies, conversation w/ outside sales consultant, review of inpatient medication list Pain: hip pain, mild to moderate PO Intake: adequate Voiding: no voiding problems discussed work up with patient and daughter, no clear source of the fever afebrile since admission, however, she has been on antibiotics discussed going back to rehab, patient initially resistant but agrees it is best plan Problem List Medical Problems: (1) Sepsis Status: Acute Review of Systems Constitutional: + weakness Musculoskeletal: + joint pain All Other Systems: Reviewed and Negative Medications Current Inpatient Medications Medications (Trade) Dose Ordered Sig/Alexa Route Start Time Stop Time Status Last Admin Dose Admin Acetaminophen (Tylenol Tab) 650 mg Q4H PRN PO 12/24/16 06:30 01/23/17 06:29 12/24/16 20:56 650 MG Polyethylene (Miralax Powder Packet) 17 gm DAILY PRN PO 12/24/16 06:45 01/23/17 06:44 Ondansetron HCl (Zofran Inj) 4 mg Q6H PRN IV 12/24/16 06:30 01/23/17 06:29 12/24/16 20:56 4 MG Daptomycin 350 mg/ Sodium Chloride 57 ml @ 100 mls/hr Q24H IV 12/25/16 06:00 01/04/17 05:59 12/25/16 06:08 100 MLS/HR Imipenem/ Cilastatin Sodium 500 mg/Dextrose 110 ml @ 100 mls/hr Q8H IV 12/24/16 14:00 01/03/17 13:59 12/25/16 06:16 100 MLS/HR Alprazolam (Xanax Tab) 0.5 mg DAILY PRN PO 12/24/16 06:45 01/23/17 06:44 12/24/16 22:43 0.5 MG Docusate Sodium (coLACE CAP) 100 mg BID PO 12/24/16 09:30 01/23/17 09:29 12/25/16 08:00 100 MG Acetaminophen/ Hydrocodone Bitart ([place] 5/325 Tab) 1 tab Q4H PRN PO 12/24/16 06:45 01/07/17 06:44 12/25/16 10:35 0.5 TAB Senna (Senokot Tab) 8.6 mg DAILY PRN PO 12/24/16 06:45 01/23/17 06:44 12/25/16 08:01 8.6 MG Warfarin Sodium (Coumadin Tab) 2 mg DAILY@1600 PO 12/24/16 16:00 01/23/17 15:59 Future hold 12/24/16 16:41 2 MG Simvastatin (Zocor Tab) 40 mg Q2D@0900 PO 12/25/16 09:00 01/24/17 08:59 12/25/16 08:00 40 MG Raloxifene HCl (Evista Tab) 60 mg Q2D@0900 PO 12/24/16 10:00 01/23/17 09:59 12/24/16 11:38 60 MG Imipenem/ Cilastatin Sodium (Consult) 1 ea UD PRN N/A 12/24/16 10:45 01/23/17 10:44 Daptomycin (Consult) 1 ea UD PRN N/A 12/24/16 10:45 01/23/17 10:44 Pantoprazole Sodium (Protonix Tab) 40 mg QAM PO 12/25/16 08:00 01/24/17 07:59 12/25/16 08:00 40 MG Al Hydroxide/Mg Hydroxide (Maalox Susp) 15 ml Q6@0000,0600,1200,1800 PO 12/25/16 07:00 01/24/17 06:59 12/25/16 07:21 15 ML Objective Vital Signs Date Time Temp Pulse Resp B/P (MAP) Pulse Ox O2 Delivery O2 Flow Rate FiO2 12/25/16 08:00 Room Air 12/25/16 07:27 36.3 86 17 100/63 (75) 93 Room Air 12/25/16 00:00 Room Air 12/24/16 23:48 37.1 105 20 90/55 (67) 90 Room Air 12/24/16 22:35 37.0 12/24/16 21:49 Room Air 12/24/16 20:53 37.9 12/24/16 16:01 36.8 89 18 85/54 (64) 94 Room Air Physical Exam General Appearance: WD/WN, no apparent distress Neck: supple, no adenopathy, no JVD, trachea midline Respiratory/Chest: chest non-tender, lungs clear, normal breath sounds, no respiratory distress, no accessory muscle use Cardiovascular: regular rate, rhythm, no edema, no gallop, no JVD, no murmur Abdomen: normal bowel sounds, non tender, soft, no organomegaly Extremities: no pedal edema, no calf tenderness, pelvis stable, + pertinent finding (right hip tender, decreased ROM) Neurologic/Psychiatric: law firm consultant II-XII nml as tested, no motor/sensory deficits, alert, normal mood/affect, oriented x 3 Skin: normal color, warm/dry, no rash Lymphatic: no adenopathy Laboratory Results Date/Time Source Procedure Growth Status 12/24/16 04:22 Blood Blood Culture - Preliminary NO GROWTH TO DATE. Resulted 12/24/16 11:45 Urine , Clean Catch Urine Culture - Preliminary NO GROWTH - LESS THAN 1,000 COLONIES/... Resulted Last 24 Hours Test 12/25/16 05:35 White Blood Count 9.71 K/uL Red Blood Count 3.04 M/uL Hemoglobin 9.4 g/dL Hematocrit 29.0 % Mean Corpuscular Volume 95.4 fL Mean Corpuscular Hemoglobin 30.9 pg Mean Corpuscular Hemoglobin Concent 32.4 g/dl Platelet Count 214 K/uL Mean Platelet Volume 8.8 fL Neutrophils (%) (Auto) 73.8 % Lymphocytes (%) (Auto) 8.3 % Monocytes (%) (Auto) 7.3 % Eosinophils (%) (Auto) 10.1 % Basophils (%) (Auto) 0.1 % Neutrophils # (Auto) 7.16 K/uL Lymphocytes # (Auto) 0.81 K/uL Monocytes # (Auto) 0.71 K/uL Eosinophils # (Auto) 0.98 K/uL Basophils # (Auto) 0.01 K/uL RDW Standard Deviation 48.4 fL RDW Coefficient of Variation 13.8 % Immature Granulocyte % (Auto) 0.4 % Immature Granulocyte # (Auto) 0.04 K/uL Prothrombin Time 36.4 SECONDS Prothromb Time International Ratio 3.2 Sodium Level 143 mmol/L Potassium Level 3.6 mmol/L Chloride Level 110 mmol/L Carbon Dioxide Level 27 mmol/L Anion Gap 6.0 mmol/L Blood Urea Nitrogen 17 mg/dl Creatinine 0.71 mg/dl Est Creatinine Clear Calc Drug Dose 48.8 ml/min Estimated GFR () 90.7 Estimated GFR (Non- 78.2 BUN/Creatinine Ratio 23.3 Random Glucose 85 mg/dl Calcium Level 7.5 mg/dl Magnesium Level 2.3 mg/dl Assessment and Plan 86-year-old female with a past medical history of hyperlipidemia, osteopenia, anxiety and depression status post right hip replacement performed 3 days prior to admission presented to the ER with complaints of fever and chills which started a day prior to admission. She's had recent urinary tract infections, 12/04 positive for Escherichia coli, culture from 12/13 showed mixed nguyen. Fever, unclear etiology: Has had recurrent urinary tract infections in the recent past, but UA clean and urine culture no growth CXR clear, blood cultures no growth thus far continue empiric antibiotics, consider stopping tomorrow if cultures negative appreciate ortho input, no signs of hip infection afebrile since admission, leukocytosis resolved Status post right total hip arthroplasty: - Incision appears healthy - Pain control with Ketchum as needed - PT/OT, needs to return to rehab once medically clear HLD: - Continue Zocor Osteopenia: - Continue raloxifene Anxiety - Continue Xanax as needed Full code DVT prophylaxis: Coumadin, will hold today, INR 3.2
[2016-12-25 15:24] VITALS: BP 94/55; PULSE 105; TEMP 36.9; O2SAT 95
[2016-12-25] MEDS: ACETAMINOPHEN 325 MG TAB PO PRN (18:40)
--- NOTE | 2016-12-25 20:13 | PROGRESS NOTE ---
DATE: 12/25/2016 Afternoon rounds. At this point in time, the patient is sitting up in her wheelchair and comfortable. She is alert and oriented. She denies chest pain, shortness of breath, fever, chills, nausea, vomiting or headache. She has minimal of any discomfort. Wound dressing is clean, dry and intact. Palpation around the thigh produces no pain. There is no redness. There is no firmness. Neurovascular check; femoral sciatic nerve is excellent. Hip range of motion is excellent. ASSESSMENT: Overall, doing well. At this point in time discharge/transfer per medicine. Oral antibiotic choice per medicine. Would suggest covering pulmonary issue and urine issue even though cultures were negative; they were obtained after she was on antibiotics. Plan is to keep the followup that was previously arranged for staple removal which was roughly 2 weeks postop. If she cannot remember that appointment, call the office [phone] and get the appointment set up. Get the appointment time confirmed.
[2016-12-26 00:11] VITALS: BP 118/71; PULSE 83; TEMP 36.5; O2SAT 96
[2016-12-26] MEDS: HYDROCODONE/ACETAMOPHEN 5/325MG TAB PO PRN ×2 (04:33→08:03)
[2016-12-26] MEDS: DAPTOmycin IV 350 MG in SODIUM CHLORIDE 0.9% 50ML 50 ML IV SCH (06:00)
[2016-12-26] MEDS: ALUMINUM/MAGNESIUM SUSP 30 ML UDC PO SCH ×3 (06:00→18:00)
[2016-12-26 06:08] LABS: INR 2.7 (0.9-1.1); PROTHROMBIN TIME (PATIENT) 30.6 SECONDS (9.0-12.0)
[2016-12-26 06:21] LABS: CREATININE 0.66 mg/dl (0.60-1.20)
[2016-12-26] MEDS: IMIPENEM/CILASTATIN IV 500 MG in DEXTROSE 5% 100ML 100 ML IV SCH (06:36)
[2016-12-26] MEDS: RALOXIFENE 60 MG TAB PO SCH (08:01)
[2016-12-26] MEDS: DOCUSATE SODIUM 100 MG CAP PO SCH ×2 (08:01→20:11)
[2016-12-26] MEDS: PANTOprazole SOD 40 MG TAB PO SCH (08:01)
[2016-12-26 08:16] VITALS: BP 111/63; PULSE 85; TEMP 36.8; O2SAT 94
--- NOTE | 2016-12-26 09:39 | Infectious Disease Progress Nt ---
Progress Note Date of Service Dec 26, 2016. Subjective Pt evaluation today including: conversation w/ patient, physical exam, chart review, lab review, review of studies, conversation w/ building energy consultant, review of inpatient medication list Feeling better. No fever. WBC normal.No cough,SOB. No other new complaints. All Other Systems: Reviewed and Negative Medications Current Inpatient Medications Medications (Trade) Dose Ordered Sig/Alexa Route Start Time Stop Time Status Last Admin Dose Admin Acetaminophen (Tylenol Tab) 650 mg Q4H PRN PO 12/24/16 06:30 01/23/17 06:29 12/25/16 18:40 650 MG Polyethylene (Miralax Powder Packet) 17 gm DAILY PRN PO 12/24/16 06:45 01/23/17 06:44 Ondansetron HCl (Zofran Inj) 4 mg Q6H PRN IV 12/24/16 06:30 01/23/17 06:29 12/24/16 20:56 4 MG Daptomycin 350 mg/ Sodium Chloride 57 ml @ 100 mls/hr Q24H IV 12/25/16 06:00 01/04/17 05:59 12/26/16 06:00 100 MLS/HR Imipenem/ Cilastatin Sodium 500 mg/Dextrose 110 ml @ 100 mls/hr Q8H IV 12/24/16 14:00 01/03/17 13:59 12/26/16 06:36 100 MLS/HR Alprazolam (Xanax Tab) 0.5 mg DAILY PRN PO 12/24/16 06:45 01/23/17 06:44 12/24/16 22:43 0.5 MG Docusate Sodium (coLACE CAP) 100 mg BID PO 12/24/16 09:30 01/23/17 09:29 12/26/16 08:01 100 MG Acetaminophen/ Hydrocodone Bitart ([place] 5/325 Tab) 1 tab Q4H PRN PO 12/24/16 06:45 01/07/17 06:44 12/26/16 08:03 1 TAB Senna (Senokot Tab) 8.6 mg DAILY PRN PO 12/24/16 06:45 01/23/17 06:44 12/25/16 08:01 8.6 MG Warfarin Sodium (Coumadin Tab) 2 mg DAILY@1600 PO 12/24/16 16:00 01/23/17 15:59 Future hold 12/24/16 16:41 2 MG Simvastatin (Zocor Tab) 40 mg Q2D@0900 PO 12/25/16 09:00 01/24/17 08:59 12/25/16 08:00 40 MG Raloxifene HCl (Evista Tab) 60 mg Q2D@0900 PO 12/24/16 10:00 01/23/17 09:59 12/26/16 08:01 60 MG Imipenem/ Cilastatin Sodium (Consult) 1 ea UD PRN N/A 12/24/16 10:45 01/23/17 10:44 Daptomycin (Consult) 1 ea UD PRN N/A 12/24/16 10:45 01/23/17 10:44 Pantoprazole Sodium (Protonix Tab) 40 mg QAM PO 12/25/16 08:00 01/24/17 07:59 12/26/16 08:01 40 MG Al Hydroxide/Mg Hydroxide (Maalox Susp) 15 ml Q6@0000,0600,1200,1800 PO 12/25/16 07:00 01/24/17 06:59 12/25/16 07:21 15 ML Objective Vital Signs Date Time Temp Pulse Resp B/P (MAP) Pulse Ox O2 Delivery O2 Flow Rate FiO2 12/26/16 08:16 36.8 85 18 111/63 (79) 94 Room Air 12/26/16 00:32 Room Air 12/26/16 00:11 36.5 83 16 118/71 (87) 96 Room Air 12/25/16 21:08 Room Air 12/25/16 15:24 36.9 105 16 94/55 (68) 95 Room Air Physical Exam General Appearance: WD/WN, no apparent distress Eyes: normal inspection, EOMI, sclerae normal ENT: normal ENT inspection, pharynx normal Neck: supple, no adenopathy, trachea midline Respiratory/Chest: chest non-tender, lungs clear, normal breath sounds, no respiratory distress Cardiovascular: regular rate, rhythm, no gallop, no murmur Abdomen: normal bowel sounds, non tender, soft, no organomegaly Extremities: non-tender, no calf tenderness Neurologic/Psychiatric: alert, normal mood/affect, oriented x 3 Skin: normal color, warm/dry, no rash, + pertinent finding (surgical site clean ) Lymphatic: no adenopathy Laboratory Results RUN DATE: 12/25/16 [facility] PAGE 1 RUN TIME: 1154 Specimen Inquiry PATIENT: MAGALY ALEXANDER LOC: [place] U # : [id number] AGE/SX: 86/F ROOM: [facility] REG : 12/24/[address]: Garland Sullivan DAbelardoOAbelardo : 1930 BED: 1 DIS : STATUS: ADM IN TLOC: SPEC #: [id number] JUS: 12/24/16 STATUS: RES REQ #: [id number] RECD: 12/24/[address]: Arleth Byrd MD SOURCE: MAUREEN, CC ENTR: 12/24/16-[address] [facility] [address]: Jhoan Mullen M.D. SPDESC: Kedem, Pa ., M.D. Carreon, YaraHank fink Wayne J., M.D. Gurram, Shwetha, MD ORDERED: CULTURE CARYNAN COMMENTS: Has Specimen Been Obtained/Collected? Y Procedure Result Verified Site URINE CULTURE Preliminary 12/25/16-1154 NO GROWTH - LESS THAN 1,000 COLONIES/ML, Final Report to Follow. Last 24 Hours Test 12/26/16 05:30 Prothrombin Time 30.6 SECONDS Prothromb Time International Ratio 2.7 Creatinine 0.66 mg/dl Est Creatinine Clear Calc Drug Dose 52.5 ml/min Estimated GFR () 94.0 Estimated GFR (Non- 81.1 Assessment and Plan Fever following recent hip surgery without obvious source at present. UTI seem unlikely given urinalysis. No PNA on CXR. Would consider transition to oral Rx with Augmentin 875 mg bid for 7 days. Will discuss.
[2016-12-26] MEDS ORDERED: AMOX875T PO (10:17)
[2016-12-26] MEDS ORDERED: CMD2 PO (10:17)
--- NOTE | 2016-12-26 10:21 | Discharge Instructions ---
Discharge Instructions Date of Service Dec 26, 2016. Admission Reason for Admission: Fever, unknown Discharge Discharge Diagnosis / Problem: Fever, unknown etiology, recent ОЛЕГ Discharge Goals Goal(s): Decrease discomfort, Improve function, Increase independence Activity Recommendations Activity Level: Assistance Required Therapies: Physical Therapy, Occupational Therapy Lifting Limitations: until after follow-up appointment Exercise/Sports Limitations: until after follow-up appointment Shower/Bathe: keep incision dry . Additional Information Patient informed of condition: Yes Advance Directives: No DNR: No Level of Care: Acute Rehab Communicable Disease: No Prognosis: Stable Oxygen at (LPM): no Dsouza Catheter: No Instructions / Follow-Up Instructions / Follow-Up Medications: - AUGMENTIN: take twice a day for 7 days, to cover urine and lungs - COUMADIN: dose decreased to 2mg daily, INR 2.7 on 12/26 FOLLOW UP - physician at rehab - keep previous follow up with Dr. Hernández that was scheduled for 2 weeks post op Current Hospital Diet Patient's current hospital diet: Regular Diet Discharge Diet Recommended Diet: Regular Diet Procedures Procedures Performed: none Pending Studies Studies pending at discharge: no Physician Orders On Transfer POLST Discussion: Not Applicable Medical Emergencies . Who to Call and When: Medical Emergencies: If at any time you feel your situation is an emergency, please call 911 immediately. . Non-Emergent Contact Non-Emergency issues call your: Primary Care Provider, Surgeon Call Non-Emergent contact if: you have a fever, your pain is worsening, wound has increased drainage, wound has increased redness, wound has increased pain, you have any medication questions . . "Provider Documentation" section prepared by Garland Sullivan. . Core Measure Problem Core Measures: None [place] Drug Monitoring Program Search Results: no issues identified
--- NOTE | 2016-12-26 12:20 | Progress Note ---
Subjective Date of Service: Dec 26, 2016. Subjective Pt evaluation today including: conversation w/ patient, conversation w/ family , physical exam, lab review, conversation w/ medical device sales consultant, review of inpatient medication list Pain: mild hip pain PO Intake: adequate Voiding: no voiding problems patient feeling well, no fevers discussed that cultures all negative cleared by ortho and ID for discharge, recommend Augmentin d/w CM, plan for [facility] tomorrow for insurance purposes Problem List Medical Problems: (1) Sepsis Status: Acute Review of Systems Musculoskeletal: + joint pain (hip) All Other Systems: Reviewed and Negative Medications Current Inpatient Medications Medications (Trade) Dose Ordered Sig/Alexa Route Start Time Stop Time Status Last Admin Dose Admin Acetaminophen (Tylenol Tab) 650 mg Q4H PRN PO 12/24/16 06:30 01/23/17 06:29 12/25/16 18:40 650 MG Polyethylene (Miralax Powder Packet) 17 gm DAILY PRN PO 12/24/16 06:45 01/23/17 06:44 Ondansetron HCl (Zofran Inj) 4 mg Q6H PRN IV 12/24/16 06:30 01/23/17 06:29 12/24/16 20:56 4 MG Daptomycin 350 mg/ Sodium Chloride 57 ml @ 100 mls/hr Q24H IV 12/25/16 06:00 01/04/17 05:59 12/26/16 06:00 100 MLS/HR Imipenem/ Cilastatin Sodium 500 mg/Dextrose 110 ml @ 100 mls/hr Q8H IV 12/24/16 14:00 01/03/17 13:59 12/26/16 06:36 100 MLS/HR Alprazolam (Xanax Tab) 0.5 mg DAILY PRN PO 12/24/16 06:45 01/23/17 06:44 12/24/16 22:43 0.5 MG Docusate Sodium (coLACE CAP) 100 mg BID PO 12/24/16 09:30 01/23/17 09:29 12/26/16 08:01 100 MG Acetaminophen/ Hydrocodone Bitart ([place] 5/325 Tab) 1 tab Q4H PRN PO 12/24/16 06:45 01/07/17 06:44 12/26/16 08:03 1 TAB Senna (Senokot Tab) 8.6 mg DAILY PRN PO 12/24/16 06:45 01/23/17 06:44 12/25/16 08:01 8.6 MG Warfarin Sodium (Coumadin Tab) 2 mg DAILY@1600 PO 12/24/16 16:00 01/23/17 15:59 Future hold 12/24/16 16:41 2 MG Simvastatin (Zocor Tab) 40 mg Q2D@0900 PO 12/25/16 09:00 01/24/17 08:59 12/25/16 08:00 40 MG Raloxifene HCl (Evista Tab) 60 mg Q2D@0900 PO 12/24/16 10:00 01/23/17 09:59 12/26/16 08:01 60 MG Imipenem/ Cilastatin Sodium (Consult) 1 ea UD PRN N/A 12/24/16 10:45 01/23/17 10:44 Daptomycin (Consult) 1 ea UD PRN N/A 12/24/16 10:45 01/23/17 10:44 Pantoprazole Sodium (Protonix Tab) 40 mg QAM PO 12/25/16 08:00 01/24/17 07:59 12/26/16 08:01 40 MG Al Hydroxide/Mg Hydroxide (Maalox Susp) 15 ml Q6@0000,0600,1200,1800 PO 12/25/16 07:00 01/24/17 06:59 12/25/16 07:21 15 ML Objective Vital Signs Date Time Temp Pulse Resp B/P (MAP) Pulse Ox O2 Delivery O2 Flow Rate FiO2 12/26/16 08:16 36.8 85 18 111/63 (79) 94 Room Air 12/26/16 08:00 Room Air 12/26/16 00:32 Room Air 12/26/16 00:11 36.5 83 16 118/71 (87) 96 Room Air 12/25/16 21:08 Room Air 12/25/16 15:24 36.9 105 16 94/55 (68) 95 Room Air Physical Exam General Appearance: WD/WN, no apparent distress Neck: supple, no adenopathy, no JVD, trachea midline Respiratory/Chest: chest non-tender, lungs clear, normal breath sounds, no respiratory distress, no accessory muscle use Cardiovascular: regular rate, rhythm, no edema, no gallop, no JVD, no murmur Abdomen: normal bowel sounds, non tender, soft, no organomegaly Extremities: no pedal edema, no calf tenderness, + pertinent finding (right hip pain, ROM is intact, wound clean and dry, anne intact) Neurologic/Psychiatric: senior trial attorney II-XII nml as tested, no motor/sensory deficits, alert, normal mood/affect, oriented x 3 Skin: normal color, warm/dry, no rash Lymphatic: no adenopathy Laboratory Results Last 24 Hours Test 12/26/16 05:30 Prothrombin Time 30.6 SECONDS Prothromb Time International Ratio 2.7 Creatinine 0.66 mg/dl Est Creatinine Clear Calc Drug Dose 52.5 ml/min Estimated GFR () 94.0 Estimated GFR (Non- 81.1 Assessment and Plan 86-year-old female with a past medical history of hyperlipidemia, osteopenia, anxiety and depression status post right hip replacement performed 3 days prior to admission presented to the ER with complaints of fever and chills which started a day prior to admission. She's had recent urinary tract infections, 12/04 positive for Escherichia coli, culture from 12/13 showed mixed nguyen. Fever, unclear etiology: Has had recurrent urinary tract infections in the recent past, but UA clean and urine culture no growth CXR clear, blood cultures no growth - final will change antibiotics to Augmentin 875mg BID x 7 days appreciate ortho input, no signs of hip infection afebrile since admission, leukocytosis resolved plan to d/c to [facility] tomorrow Status post right total hip arthroplasty: - Incision appears healthy - Pain control with [place] as needed - PT/OT, needs to return to rehab tomorrow - f/u with ortho for staple removal HLD: - Continue Zocor Osteopenia: - Continue raloxifene Anxiety - Continue Xanax as needed Full code DVT prophylaxis: Coumadin 2mg daily, INR 2.7
[2016-12-26] MEDS: AMOXICILLIN/CLAVULANATE TAB 875 MG TAB PO SCH ×2 (13:22→21:39)
[2016-12-26 16:08] VITALS: BP 121/72; PULSE 90; TEMP 36.7; O2SAT 95
[2016-12-26] MEDS: WARFARIN SOD 2 MG TAB PO SCH (16:10)
--- NOTE | 2016-12-26 18:16 | PROGRESS NOTE ---
DATE: 12/26/2016 On orthopedic rounds at this point in time the patient is doing extremely well. In the sense of her comfort level she has not had any real significant pain medication today. She has occasional aches in her hip. She is more insecure than anything. Exam today reveals neurovascular check femoral sciatic nerve to be good. Hip rotation, flexion, extension, abduction and external rotation is supple and pain free. Dressing is changed. It is completely bone dry. There is no sign of any issue there. There is no fluctuance. There is no collection. There is no tenderness. ASSESSMENT: Doing well from an orthopedic perspective. Continue with present management. Transfer back to [facility] when feasible apparently it is going to be tomorrow. Will follow up with me in 1 week in the office for staple removal.
[2016-12-26] MEDS: ACETAMINOPHEN 325 MG TAB PO PRN (18:18)
[2016-12-26 19:39] VITALS: TEMP 36.8
[2016-12-26 23:50] VITALS: BP 115/74; PULSE 94; TEMP 37; O2SAT 96
[2016-12-27] VITALS: O2SAT 96
[2016-12-27] MEDS: ALUMINUM/MAGNESIUM SUSP 30 ML UDC PO SCH ×3 (03:01→12:26)
[2016-12-27] MEDS: HYDROCODONE/ACETAMOPHEN 5/325MG TAB PO PRN (06:25)
[2016-12-27] MEDS: ALPRAZOLAM 0.5 MG TAB PO PRN (06:25)
[2016-12-27 06:45] LABS: INR 2.5 (0.9-1.1); PROTHROMBIN TIME (PATIENT) 27.4 SECONDS (9.0-12.0)
[2016-12-27 07:02] VITALS: BP 106/67; PULSE 98; TEMP 37.5; O2SAT 92
[2016-12-27 07:18] LABS: CREATININE 0.74 mg/dl (0.60-1.20)
[2016-12-27] MEDS: SIMVASTATIN 40 MG TAB PO SCH (08:05)
[2016-12-27] MEDS: AMOXICILLIN/CLAVULANATE TAB 875 MG TAB PO SCH (08:05)
[2016-12-27] MEDS: PANTOprazole SOD 40 MG TAB PO SCH (08:05)
[2016-12-27] MEDS: DOCUSATE SODIUM 100 MG CAP PO SCH (08:06)
[2016-12-27 08:30] VITALS: O2SAT 92
--- NOTE | 2016-12-27 08:51 | Consultant Recommendations ---
Assembler Tractor Recommendations Date of Service Dec 27, 2016. Assembler Tractor Recommendations New Medicine: * You will likely be taking one or more of these medicines: 1. Pain medication as prescribed 2. Coumadin - Thins your blood to lessen the chance of forming a blood clot. The dose of this is different for each person and is based on your blood tests that are done twice a week. * The most common side effects of pain medicine and iron are nausea and constipation. If nausea or constipation is too much of a problem or if you have any questions about your new medicines or doses, call [facility] at . We will try to help you manage these issues. VERY IMPORTANT TO READ AND REVIEW" Blood Clots and Blood Thinning Medicine: * You are given Coumadin during the immediate post-operative period to lessen the risk of blood clots forming in your legs and/or lungs. Coumadin is usually given for six weeks after surgery. * The prescription is for 2 mg tablets. At discharge, you should understand your dose and take it all at the same time every day, preferably after dinner. * You need to get your blood checked 1 - 2 times per week for six weeks, or as directed. * If your dose needs to change, we will call you. Do not take your medication on the day of the blood test until we call you. * If you don't hear from us after your blood draws, keep taking the same dose. Pain: * The immediate post-operative period after hip replacement surgery is often quite painful. * You are given a prescription for pain medicine. You should take it, as directed, when you need it, especially before physical therapy and before going to bed. Pain that interferes with sleep is very common and can last several months. * You will likely need pain medicine for the first two to four weeks. It will not stop all of the pain. The pain will lessen and as you feel better, you may change to milder pain medicine such as Tylenol. * The most common side effects of pain medicine are nausea and constipation, so don't take more than you need. Physical Therapy: * Follow the "Hip Precautions Instructions." * In some cases, the geriatric social worker at the hospital will arrange to have a therapist come to your house for the first couple of weeks to help you learn these skills. * You need to practice on your own or with the help of a family member as needed. * When you learn these skills, most of the therapy can be done on your own. Home Exercise: * You were shown a series of exercises in the hospital. Do these exercises three to four times each day including the exercises you were shown in physical therapy. Walking: * Get up and walk several times each day. For the first four weeks, try not to stand or walk for more than one hour at a time. If you do stand or walk for more than one hour, you will not hurt anything, but your leg will likely swell. * As you feel comfortable, you may change from the walker or crutches to a cane and then to independent walking. SELF CARE INSTRUCTIONS AFTER TOTAL HIP REPLACEMENT Until the incision and soft tissues around your hip have healed, there is a possibility that the hip prosthesis could dislocate. A. Observe the following precautions to prevent dislocation: 1. Don't bend your hip greater than 90 degrees. 2. Avoid crossing your legs or ankles while standing or lying. 3. Sit with your feet placed 6 inches apart. 4. When sitting, keep your knees below your hips. Sit on a firm surface, avoid deep, soft chairs and couches. Use an elevated toilet seat in the bathroom. 5. Don't bend over at the waist. Use a long handled shoehorn and a sock aid to help you put on your shoes and socks. A accounts receivable accountant can help you cigar packer and picker objects that are too high or too low to reach. 6. Keep car riding to a minimum for at least one month after surgery. B. Your balance may be shaky for a while. Use crutches or a walker until directed by your doctor. C. Use hand rails when walking on stairs. D. Wear low heeled shoes with non-slip soles. E. Be sure that your floors are free of things that could trip you - throw rugs , electrical cords, small objects. Avoid wet and waxed floors, especially with crutches and canes. F. Try to walk several times a day with rest periods between. G. Continue with all the exercises taught to you in the hospital. Again, make walking a part of your daily routine. VERY IMPORTANT TO READ AND REVIEW A. Take Coumadin, or Lovenox (blood thinning medications) as directed by your doctor. If you are on Coumadin, have a pro-time (blood test) drawn according to your doctor's instructions. This will tell the doctor how well the Coumadin is thinning your blood. B. There are a few signs you need to watch for after you are home. If you notice any of the followin. Increased severe hip pain. Some pain is expected especially when you exercise. 2. Increased swelling in your leg or knee; pain or swelling of the calf muscle in either lower leg. 3. Any fluid drainage from the incision. 4. Shortness of breath or chest pain. TEDs/Elastic Stockings: * The white elastic stockings help limit swelling and prevent blood clots from forming in your legs. The more you wear them, the more they work. * Wear them for six weeks. Prevention of Infection: * Take antibiotics one hour before any dental cleaning, dental work, urological procedure, gastrointestinal procedure or any invasive surgery in order to prevent your new joint from getting infected. * You may get the antibiotics from the doctor performing the procedure or we will call in a prescription to the pharmacy of your choice. Call the office for a prescription at least 2 days prior to your appointment. Things to Watch For: * Drainage from the incision site that occurs more than one week after your surgery. * Severely increased leg pain or swelling. * Increased redness at the incision site. * Fever above 101 degrees Fahrenheit. * Unusual chest pain or shortness of breath. * Unusual pain or burning with urination.
[2016-12-27] MEDS ORDERED: NYSTATIN SUSP 500,000 U/5 ML UDC PO STA (09:09)
[2016-12-27] MEDS ORDERED: NYSS/ PO (09:11)
--- NOTE | 2016-12-27 09:17 | Discharge Summary ---
Discharge Summary Date of Service Dec 27, 2016. Discharge Summary Admission Date: Dec 24, 2016 at 06:33 Discharge Date: Dec 27, 2016 Discharge Disposition: Rehab Principal Diagnosis: Post operative fever Problems/Secondary Diagnoses: s/p hip arthroplasty oral thrush h/o recurrent UTI Procedures: none Consultations: orthopedic surgery infectious disease Medication Reconciliation New Medications: Amoxicillin & Pot Clavulanate (Augmentin 875-125 mg) 1 Tab Tab 1 TAB PO BID for 7 Days, #14 TAB Nystatin (Nystatin Suspension) 1 Ml Susp 5 ML PO QID for 7 Days, #140 ML 0 Refills Warfarin Sod (Coumadin) 2 Mg Tab 2 MG PO DAILY@1600, #30 TAB 2 Refills Continued Medications: Acetaminophen (Tylenol) 500 Mg Tab 2 TAB PO BID PRN for Pain, TAB Alprazolam (Alprazolam) 0.5 Mg Tab 1 DOSE PO DAILY PRN for ANXIETY Ascorbic Acid (Ascorbic Acid) Unknown Strength Tab Unknown Dose PO BID, TAB Calcium/Vitamin D ([place] 500 Plus D) Tab 1 TAB PO BID, TAB Docusate Sodium (Docusate Sodium) 100 Mg Cap 100 MG PO BID, CAP Hydrocodone/Acetaminophen 10MG/325MG ([place] 10MG/325MG) Tab 1 TAB PO Q4H PRN for PAIN # 7-10, TAB PRN PAIN Hydrocodone/Acetaminophen 5MG/325MG ([place] 5MG/325MG) Tab 1 TABLET PO Q4H PRN for PAIN # 4-6, TAB PRN PAIN Multiple Vitamins W/ Minerals (Theragran-M) 1 Tab Tab 1 TAB PO QAM Raloxifene Hcl (Evista) 60 Mg Tab 60 MG PO Q2D, TAB Senna (Senokot) 8.6 Mg Tab 1 TAB PO DAILY PRN for Constipation, TAB Simvastatin (Zocor) 40 Mg Tab 40 MG PO Q2D, TAB Thiamine Hcl (Vitamin B-1) Unknown Strength Tab Unknown Dose PO BID, TAB Discontinued Medications: Nitrofurantoin Macrocrystals (Macrodantin) 100 Mg Cap 100 MG PO BID, CAP BEGIN 12/22/16 X 7 DAYS Warfarin Sod (Jantoven) 2.5 Mg Tab 2.5 MG PO DAILY, TAB Discharge Exam Patient's chief complaint is a sore tongue, feels inflamed. Getting worse. She has chronic dry mouth but now this feels different. Examined mouth and tongue, certainly tongue more red today, discussed trying some Nystatin and she agreed with plan. No fevers since transitioning to Augmentin. Plan to d/c to [facility] today. Review of Systems: Constitutional: No fever, No chills, No sweats, No weight loss, No weakness , No fatigue, No problem reported Eyes: No worsening of vision, No eye pain, No redness, No discharge, No diplopia, No problem reported ENT: + problem reported (sore, inflamed tongue), No hearing loss, No unusual epistaxis, No nasal symptoms, No sore throat, No tinnitus, No dental problems, No trouble swallowing Respiratory: No cough, No sputum, No wheezing, No shortness of breath, No dyspnea on exertion, No dyspnea at rest, No hemoptysis, No problem reported Cardiovascular: No chest pain, No orthopnea, No PND, No edema, No claudication, No palpitations, No problem reported Abdomen: No pain, No nausea, No vomiting, No diarrhea, No constipation, No GI bleeding, No problem reported Musculoskeletal: + joint pain (hip), No muscle pain, No swelling, No calf pain, No problem reported Genitourinary - Female: No dysuria, No urinary frequency, No urinary urgency , No urinary incontinence, No urinary retention, No hematuria Neurologic: No memory loss, No paralysis, No weakness, No numbness/tingling , No vertigo, No balance problems, No problem reported Psychiatric: No depression symptoms, No anhedonism, No anxiety, No insomnia , No substance abuse, No problem reported Endocrine: No fatigue, No excessive thirst, No excessive urination, No problem reported Hematologic / Lymphatic: No abnormal bleeding/bruising, No clotting problems , No swollen lymph nodes, No night sweats, No problem reported Integumentary: No rash, No itch, No new/changing skin lesions, No color change, No bleeding, No problem reported Physical Exam: General Appearance: WD/WN, no apparent distress Eyes: normal inspection, EOMI, sclerae normal ENT: hearing grossly normal, pharynx normal, + pertinent finding (tongue red , tender, no white plaques seen) Neck: supple, no adenopathy, no JVD, trachea midline Respiratory/Chest: chest non-tender, lungs clear, normal breath sounds, no respiratory distress, no accessory muscle use Cardiovascular: regular rate, rhythm, no edema, no gallop, no JVD, no murmur , normal peripheral pulses Abdomen / GI: normal bowel sounds, non tender, soft, no organomegaly Extremities: normal inspection, no calf tenderness, normal capillary refill , no pedal edema, normal range of motion Neurologic/Psychiatric: 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 She's had recent urinary tract infections, 12/04 positive for Escherichia coli, culture from 12/13 showed mixed nguyen. Fever, unclear etiology: Has had recurrent urinary tract infections in the recent past, but UA clean and urine culture no growth CXR clear, blood cultures no growth - final will change antibiotics to Augmentin 875mg BID x 7 days appreciate ortho input, no signs of hip infection afebrile since admission, leukocytosis resolved plan to d/c to [facility] today Oral thrush: tongue red, inflamed, tender, no plaques seen will start Nystatin S/S 5mL QID, 7 days, look for improvement in symptoms Status post right total hip arthroplasty: - Incision appears healthy - Pain control with [place] as needed - PT/OT, needs to return to rehab tomorrow - f/u with ortho for staple removal in one week, Dr. Hernández HLD: - Continue Zocor Osteopenia: - Continue raloxifene Anxiety - Continue Xanax as needed Full code DVT prophylaxis: Coumadin 2mg daily, INR 2.5 Total Time Spent: Less than 30 minutes This includes examination of the patient, discharge planning, medication reconciliation, and communication with other providers. Discharge Instructions Please refer to the electronic Patient Visit Report (Discharge Instructions) for additional information. Follow-Up Dr. Hernández in one week in office for staple removal Physician at [facility] PCP one week after discharge from rehab Additional Copies To Jhoan Mullen M.D.; [facility]; Milton Schreiber M.D.
[2016-12-27 10:21] VITALS: BP 106/67; PULSE 98; O2SAT 92
--- NOTE | 2016-12-27 10:56 | Infectious Disease Progress Nt ---
Progress Note Date of Service Dec 27, 2016. Subjective Pt evaluation today including: conversation w/ patient, physical exam, chart review, lab review, review of studies, conversation w/ water resource consultant, review of inpatient medication list No new complaints. Remains afebrile. Hip pain better. Anticipating discharge. All Other Systems: Reviewed and Negative Medications Current Inpatient Medications Medications (Trade) Dose Ordered Sig/Alexa Route Start Time Stop Time Status Last Admin Dose Admin Acetaminophen (Tylenol Tab) 650 mg Q4H PRN PO 12/24/16 06:30 01/23/17 06:29 12/26/16 18:18 650 MG Polyethylene (Miralax Powder Packet) 17 gm DAILY PRN PO 12/24/16 06:45 01/23/17 06:44 Ondansetron HCl (Zofran Inj) 4 mg Q6H PRN IV 12/24/16 06:30 01/23/17 06:29 12/24/16 20:56 4 MG Alprazolam (Xanax Tab) 0.5 mg DAILY PRN PO 12/24/16 06:45 01/23/17 06:44 12/27/16 06:25 0.5 MG Docusate Sodium (coLACE CAP) 100 mg BID PO 12/24/16 09:30 01/23/17 09:29 12/27/16 08:06 100 MG Acetaminophen/ Hydrocodone Bitart ([place] 5/325 Tab) 1 tab Q4H PRN PO 12/24/16 06:45 01/07/17 06:44 12/27/16 06:25 1 TAB Senna (Senokot Tab) 8.6 mg DAILY PRN PO 12/24/16 06:45 01/23/17 06:44 12/25/16 08:01 8.6 MG Warfarin Sodium (Coumadin Tab) 2 mg DAILY@1600 PO 12/24/16 16:00 01/23/17 15:59 Future hold 12/26/16 16:10 2 MG Simvastatin (Zocor Tab) 40 mg Q2D@0900 PO 12/25/16 09:00 01/24/17 08:59 12/27/16 08:05 40 MG Raloxifene HCl (Evista Tab) 60 mg Q2D@0900 PO 12/24/16 10:00 01/23/17 09:59 12/26/16 08:01 60 MG Pantoprazole Sodium (Protonix Tab) 40 mg QAM PO 12/25/16 08:00 01/24/17 07:59 12/27/16 08:05 40 MG Al Hydroxide/Mg Hydroxide (Maalox Susp) 15 ml Q6@0000,0600,1200,1800 PO 12/25/16 07:00 01/24/17 06:59 12/25/16 07:21 15 ML Amoxicillin/ Clavulanate Potassium (Augmentin Tab) 875 mg BIDM PO 12/26/16 14:00 12/31/16 13:59 12/27/16 08:05 875 MG Objective Vital Signs Date Time Temp Pulse Resp B/P (MAP) Pulse Ox O2 Delivery O2 Flow Rate FiO2 12/27/16 10:21 37.5 98 20 92 Room Air 12/27/16 08:30 92 Room Air 2.0 12/27/16 07:02 37.5 98 20 106/67 (80) 92 Room Air 12/27/16 00:00 96 Room Air 12/26/16 23:50 37.0 94 18 115/74 (88) 96 Room Air 12/26/16 19:39 36.8 12/26/16 16:08 36.7 90 18 121/72 (88) 95 Room Air 12/26/16 15:50 Room Air Physical Exam General Appearance: WD/WN, no apparent distress Eyes: normal inspection, sclerae normal ENT: normal ENT inspection, pharynx normal Neck: supple, no adenopathy, trachea midline Respiratory/Chest: lungs clear, normal breath sounds, no respiratory distress Cardiovascular: regular rate, rhythm, no gallop, no murmur Abdomen: normal bowel sounds, non tender, soft, no organomegaly Extremities: non-tender, no calf tenderness Neurologic/Psychiatric: alert, oriented x 3 Skin: normal color, no rash, + pertinent finding (hip wound clean) Lymphatic: no adenopathy Laboratory Results Last 24 Hours Test 12/27/16 06:15 Prothrombin Time 27.4 SECONDS Prothromb Time International Ratio 2.5 Creatinine 0.74 mg/dl Est Creatinine Clear Calc Drug Dose 46.8 ml/min Estimated GFR () 86.2 Estimated GFR (Non- 74.4 Assessment and Plan Fever following recent hip surgery without obvious source at present. UTI seem unlikely given urinalysis. No PNA on CXR. Patient will transition to oral Rx with Augmentin 875 mg bid for 7 days. Will discuss.
[2016-12-27 11:00] VITALS: TEMP 36.8
--- NOTE | 2016-12-27 11:28 | PROGRESS NOTE ---
DATE: 12/27/2016 DATE: 12/27/2016. SUBJECTIVE: At this point in time, the patient is sitting up in chair eating some strawberries. Denies any chest pain, shortness of breath, fever, chills, nausea, vomiting or headache. T-max is 37.5. OBJECTIVE: Check of her wound dressing clean, dry and intact. No redness or palpation tenderness about the area. Neurovascular check femoral sciatic nerve is good. Hip range of motion is supple and pain free. ASSESSMENT: Continue with present plans of discharge today. Will discharge on Augmentin 875 b.i.d. per ID. Follow up with me in 1 week, 01/04/2017 is her follow-up appointment at 12:45 p.m.
[2016-12-27] MEDS: ACETAMINOPHEN 325 MG TAB PO PRN (13:32)
== END 2016-12-27 15:00 | DRG 864 ==
LOC: EDBD 04:01 → C.EDB 04:02 → C.4E 06:33 → ENRESERV 07:23
PROVIDERS: ADMIT Family Medicine; ATTEND Internal Medicine
DX: R50.82 Postprocedural fever (principal); N39.0 Urinary tract infection, site not specified; E78.5 Hyperlipidemia, unspecified; M85.80 Other specified disorders of bone density and structure, unspecified site; F41.9 Anxiety disorder, unspecified; Z79.01 Long term (current) use of anticoagulants

== ENCOUNTER → 2017-01-09 | Outpatient (CLI) | payer OTHER, MEDICARE ==
[~2017-01-09] MED LIST changes: +ASCO500T16 PO; -B COCAP3 PO; +CMD2 PO; +DOCU100C31 PO; +HYDR-4079 PO; +MULT-116 PO; -MULT-506 PO; +NYSS/ PO; +RALO60TA12 PO; -RALO60TA31 PO; +SENN-61 PO; +THIA100T11 PO; -WARF2TAB PO
[2017-01-09 13:47] LABS: INR 1.8 (0.9-1.1); PROTHROMBIN TIME (PATIENT) 19.2 SECONDS (9.0-12.0)
== END | disposition home or self-care (01) ==
LOC: C.LABSPEC 13:06
PROVIDERS: ATTEND Physical Medicine & Rehabilitation Sports Medicine
DX: Z79.01 Long term (current) use of anticoagulants (principal)

== ENCOUNTER → 2017-01-12 | Outpatient (CLI) | payer OTHER, MEDICARE ==
[~2017-01-12] MED LIST changes: +ALPR0.25 PO; +B COCAP3 PO; +CITA20TA9 PO; +CLB/200 PO; +FERR1TAB23 PO
--- NOTE | 2017-01-12 09:44 | DIAGNOSTIC IMAGING REPORT ---
PELVIS 1 OR 2 VIEWS CLINICAL HISTORY: F/U RIGHT ОЛЕГ hip replacement COMPARISON: 12/20/2016 DISCUSSION: Anatomic alignment right hip status post total hip arthroplasty. Good contact between prosthetic and underlying bone. No evidence for acetabular protrusion. Moderate degenerative change left hip. There is no evidence for soft tissue swelling. IMPRESSION: Anatomic alignment status post total right hip arthroplasty. Electronically signed by: Tato Dunham M.D. 01/12/2017 9:42 AM Dictated Date/Time: 01/12/2017 9:42 AM
== END | disposition home or self-care (01) ==
LOC: C.RDSM 13:19
PROVIDERS: ATTEND Physician Assistant
DX: Z96.649 Presence of unspecified artificial hip joint (principal)

== ENCOUNTER → 2017-01-14 | Outpatient (CLI) | payer OTHER, MEDICARE ==
[2017-01-14 13:47] LABS: INR 2.1 (0.9-1.1); PROTHROMBIN TIME (PATIENT) 22.9 SECONDS (9.0-12.0)
--- NOTE | 2017-01-18 11:19 | CODING QUERY NO DIAGNOSIS ---
Valid Physician Order Needed A valid physician order must be submitted in order to properly bill for the service(s) provided, including date of service(s), valid diagnosis, and physician signature. If these tests are done on a recurring basis the original physician order must be submitted in order to code and bill for the service(s) provided. Please fax us the original, signed physician order so that we may expedite billing to [phone] DOS 01/14 * PTINR Thank you! [facility]
== END | disposition home or self-care (01) ==
LOC: C.LABSPEC 11:41
PROVIDERS: ATTEND Physical Medicine & Rehabilitation Sports Medicine
DX: Z51.81 Encounter for therapeutic drug level monitoring (principal); Z79.01 Long term (current) use of anticoagulants

== ENCOUNTER → 2017-01-22 | Outpatient (CLI) | payer OTHER, MEDICARE ==
[2017-01-22 11:06] LABS: INR 2.5 (0.9-1.1); PROTHROMBIN TIME (PATIENT) 28.1 SECONDS (9.0-12.0)
--- NOTE | 2017-02-08 07:39 | CODING QUERY NO DIAGNOSIS ---
Valid Physician Order Needed A valid physician order must be submitted in order to properly bill for the service(s) provided, including date of service(s), valid diagnosis, and physician signature. If these tests are done on a recurring basis the original physican order must be submitted in order to code and bill for the service(s) provided. Please fax us the original, signed physician order so that we may expedite billing to [phone] DOS 01/22/17 * PT/INR Thank you Kelley [facility]
== END | disposition home or self-care (01) ==
LOC: C.LABSPEC 10:46
PROVIDERS: ATTEND Physical Medicine & Rehabilitation Sports Medicine
DX: Z51.81 Encounter for therapeutic drug level monitoring (principal); Z79.01 Long term (current) use of anticoagulants

== ENCOUNTER → 2017-01-26 | Outpatient (CLI) | payer OTHER, MEDICARE ==
[2017-01-26 11:10] LABS: INR 1.9 (0.9-1.1); PROTHROMBIN TIME (PATIENT) 20.7 SECONDS (9.0-12.0)
--- NOTE | 2017-02-01 06:40 | CODING QUERY NO DIAGNOSIS ---
Valid Physician Order Needed A valid physician order must be submitted in order to properly bill for the service(s) provided, including date of service(s), valid diagnosis, and physician signature. If these tests are done on a recurring basis the original physician order must be submitted in order to code and bill for the service(s) provided. Please fax us the original, signed physician order so that we may expedite billing to [phone] DOS 01/26 * PTINR Thank you T[facility]
== END | disposition home or self-care (01) ==
LOC: C.LABSPEC 10:54
PROVIDERS: ATTEND Physical Medicine & Rehabilitation Sports Medicine
DX: Z51.81 Encounter for therapeutic drug level monitoring (principal); Z79.01 Long term (current) use of anticoagulants

== ENCOUNTER 2017-03-07 21:35 | Observation (INO) | payer OTHER, MEDICARE ==
[~2017-03-07] VITALS: Ht 160 cm; Wt 55.5 kg
[~2017-03-07 21:35] MED LIST changes: -ALPR0.25 PO; -B COCAP3 PO; -CITA20TA9 PO; -CLB/200 PO; -FERR1TAB23 PO
[2017-03-07] MEDS ORDERED: ALPR0.25 PO (22:24)
[2017-03-07] MEDS ORDERED: FERR1TAB23 PO (22:24)
[2017-03-07] MEDS ORDERED: CLB/200 PO ×2 (22:24→22:49)
[2017-03-07] MEDS ORDERED: B COCAP3 PO (22:24)
--- NOTE | 2017-03-07 22:34 | EMERGENCY ROOM VISIT NOTE ---
History Report prepared by Gill: Milton Goldberg Under the Supervision of: Dr. Jamarcus Reyes M.D. First contact with patient: 22:16 Chief Complaint: FEVER Stated Complaint: HIGH FEVER,RECENT HIP REPLACEMENT,POSSIBLY UTI History of Present Illness The patient is an 87 year old white female with a past medical history of a recent right hip replacement 2 months ago who presents to the ED with a cc of a fever beginning 2 hours ago. Positive headache and post nasal drip. Negative chest pain, shortness of breath, cough, nausea, back pain, rash, or urinary symptoms. After the patient's hip replacement, she got a UTI. She was treated with IV antibiotics for a couple of days. Her temperature was 101.5 initially, but shanel to 102. They did not want to risk another UTI, so they called their doctor and were referred here. She notes taking 4 Amoxicillin after a tooth cleaning this afternoon. She also takes Nystatin, Celexa, and []. Source of History: patient Onset: 2 hours ago Position: other (global) Symptom Intensity: 102 F Quality: other (Fever) Timing: worsening Associated Symptoms: + headache, + nausea, No cough, No chest pain, No SOB, No back pain, No urinary symptoms, No rash Review of Systems See HPI for pertinent positives and negatives. A total of ten systems were reviewed and were otherwise negative. 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 (3) Fever Family History Emphysema Heart disease Social History Smoking Status: Never Smoker Smokeless Tobacco Use: No Alcohol Use: none Drug Use: none Marital Status: Housing Status: lives with family Occupation Status: retired Current/Historical Medications Scheduled B Complex W/ C (Vitamin B Complex-C), 1 CAP PO DAILY Calcium/Vitamin D (Os-Ari 500 Plus D), 1 TAB PO DAILY Citalopram Hydrobromide (Celexa), 20 MG PO DAILY Ferrous Sulfate (Iron), 1 TAB PO BID Raloxifene Hcl (Evista), 60 MG PO Q2D Simvastatin (Zocor), 40 MG PO Q2D Scheduled PRN Acetaminophen (Tylenol), 2 TAB PO BID PRN for Pain Alprazolam (Alprazolam), 1 DOSE PO DAILY PRN for ANXIETY Alprazolam (Xanax), 0.25 MG PO DAILY PRN for Anxiety/Agitation Senna (Senokot), 1 TAB PO DAILY PRN for Constipation Allergies Coded Allergies: No Known Allergies (Unverified , 03/07/17) Physical Exam Vital Signs Date Time Temp Pulse Resp B/P (MAP) Pulse Ox O2 Delivery O2 Flow Rate FiO2 03/08/17 01:30 113 26 114/96 94 03/08/17 01:25 108 22 95/57 94 03/08/17 01:23 94/55 03/08/17 01:12 90/49 03/08/17 01:12 90/49 03/08/17 00:55 106 18 94 03/08/17 00:50 103 18 95 03/08/17 00:20 102 18 95 03/08/17 00:00 37.3 03/07/17 23:50 106 23 93 03/07/17 23:45 106 28 91 03/07/17 23:15 104 27 94 03/07/17 22:50 94 Room Air 03/07/17 22:45 109 25 94 03/07/17 22:37 37.2 03/07/17 22:26 117 03/07/17 22:02 121 18 99/69 95 03/07/17 21:45 36.9 148 16 119/71 95 Room Air Physical Exam GENERAL: Awake, alert, well-appearing, NAD HENT: Normocephalic, atraumatic. EYES: Normal conjunctiva. Sclera non-icteric. NECK: Supple. No nuchal rigidity. FROM. RESPIRATORY: CTAB, no rhonchi, wheezing, crackles CARDIAC: Tachycardic with a regular rhythm, no MRG ABDOMEN: Soft, NTND, BS+ MSK: No chest wall TTP, no LE edema, right hip has no erythema fluctuance or calor. NEURO: GCS 15, CN 2-12 intact, moves all 4s on command SKIN: No rash or jaundice noted. Medical Decision & Procedures ER Provider Diagnostic Interpretation: Radiology results as stated below per my review and radiologist interpretation: SINGLE VIEW CHEST CLINICAL HISTORY: Fever. FINDINGS: An AP, portable, upright chest radiograph is compared to study dated 12/24/2016. The examination is degraded by portable technique and patient rotation. The cardiomediastinal silhouette is unremarkable. There is atherosclerotic calcification of the thoracic aorta. A large hiatal hernia is identified. There is mild elevation of the right hemidiaphragm and bibasilar atelectasis. No airspace consolidation is seen typical for pneumonia. There is no large pleural effusion or pneumothorax. The skeletal structures are osteopenic. Arthritic changes present in the shoulders. Calcified joint body is noted on the left. IMPRESSION: 1. No acute cardiopulmonary abnormality. 2. Large hiatal hernia. Electronically signed by: Melvin Orourke M.D. 03/07/2017 10:51 PM Dictated Date/Time: 03/07/2017 10:50 PM Laboratory Results 03/07/17 22:20 Red Blood Count 4.64, Mean Corpuscular Volume 88.8, Mean Corpuscular Hemoglobin 30.4, Mean Corpuscular Hemoglobin Concent 34.2, Mean Platelet Volume 10.0, Neutrophils (%) (Auto) 90.2, Lymphocytes (%) (Auto) 5.2, Monocytes (%) (Auto) 3.9, Eosinophils (%) (Auto) 0.3, Basophils (%) (Auto) 0.1, Neutrophils # (Auto) 8.01, Lymphocytes # (Auto) 0.46, Monocytes # (Auto) 0.35, Eosinophils # (Auto) 0.03, Basophils # (Auto) 0.01 03/07/17 22:20 Test 03/07/17 22:20 03/07/17 22:39 03/07/17 22:43 03/07/17 23:02 White Blood Count 8.89 K/uL (4.8-10.8) Red Blood Count 4.64 M/uL (4.2-5.4) Hemoglobin 14.1 g/dL (12.0-16.0) Hematocrit 41.2 % (37-47) Mean Corpuscular Volume 88.8 fL (80-100) Mean Corpuscular Hemoglobin 30.4 pg (25-34) Mean Corpuscular Hemoglobin Concent 34.2 g/dl (32-36) Platelet Count 176 K/uL (130-400) Mean Platelet Volume 10.0 fL (7.4-10.4) Neutrophils (%) (Auto) 90.2 % Lymphocytes (%) (Auto) 5.2 % Monocytes (%) (Auto) 3.9 % Eosinophils (%) (Auto) 0.3 % Basophils (%) (Auto) 0.1 % Neutrophils # (Auto) 8.01 K/uL (1.4-6.5) Lymphocytes # (Auto) 0.46 K/uL (1.2-3.4) Monocytes # (Auto) 0.35 K/uL (0.11-0.59) Eosinophils # (Auto) 0.03 K/uL (0-0.5) Basophils # (Auto) 0.01 K/uL (0-0.2) RDW Standard Deviation 47.4 fL (36.4-46.3) RDW Coefficient of Variation 14.6 % (11.5-14.5) Immature Granulocyte % (Auto) 0.3 % Immature Granulocyte # (Auto) 0.03 K/uL (0.00-0.02) Urine Color DK YELLOW Urine Appearance CLOUDY (CLEAR) Urine pH 5.0 (4.5-7.5) Urine Specific [place] 1.026 (1.000-1.030) Urine Protein NEG (NEG) Urine Glucose (UA) NEG (NEG) Urine Ketones NEG (NEG) Urine Occult Blood NEG (NEG) Urine Nitrite NEG (NEG) Urine Bilirubin NEG (NEG) Urine Urobilinogen NEG (NEG) Urine Leukocyte Esterase LARGE (NEG) Urine WBC (Auto) >30 /hpf (0-5) Urine RBC (Auto) 0-4 /hpf (0-4) Urine Hyaline Casts (Auto) 1-5 /lpf (0-5) Urine Epithelial Cells (Auto) >30 /lpf (0-5) Urine Bacteria (Auto) NEG (NEG) Anion Gap 7.0 mmol/L (3-11) Est Creatinine Clear Calc Drug Dose 26.2 ml/min Estimated GFR () 43.3 Estimated GFR (Non- 37.4 BUN/Creatinine Ratio 19.2 (10-20) Calcium Level 9.0 mg/dl (8.5-10.1) Total Bilirubin 0.3 mg/dl (0.2-1) Aspartate Amino Transf (AST/SGOT) 20 U/L (15-37) Alanine Aminotransferase (ALT/SGPT) 31 U/L (12-78) Alkaline Phosphatase 74 U/L (45-117) Total Protein 6.8 gm/dl (6.4-8.2) Albumin 3.2 gm/dl (3.4-5.0) Globulin 3.6 gm/dl (2.5-4.0) Albumin/Globulin Ratio 0.9 (0.9-2) Bedside Troponin I < 0.030 ng/ml (0-0.045) Bedside Lactic Acid Venous 2.10 mmol/L (0.90-1.70) Venous Blood pH 7.45 (7.36-7.41) Venous Blood Partial Pressure CO2 33 mmHg (38.0-50.0) Venous Blood Partial Pressure O2 58 mmHg Venous Blood HCO3 22 mmol/L Venous Blood Oxygen Saturation 88.3 % Venous Blood Base Excess -1.4 mEq/L Laboratory results reviewed by me Medications Administered Medications (Trade) Dose Ordered Sig/Alexa Route Start Time Stop Time Status Last Admin Dose Admin Ibuprofen (Advil Tab) 400 mg NOW STAT PO 03/07/17 22:41 03/07/17 22:44 DC 03/07/17 22:56 400 MG Sodium Chloride 1,000 ml @ 999 mls/hr Q1H1M STAT IV 03/07/17 22:41 03/07/17 23:41 DC 03/07/17 22:56 999 MLS/HR Sodium Chloride 500 ml @ 999 mls/hr Q31M STAT IV 03/07/17 23:49 03/08/17 00:19 DC 03/07/17 23:57 999 MLS/HR Ceftriaxone Sodium (Rocephin Inj) 1 gm NOW STAT IV 03/07/17 23:49 03/07/17 23:50 DC 03/07/17 23:58 1 GM ED Course 2216: The patient was evaluated in room A10. A complete history and physical exam was performed. 0009: [place] [facility] [place]. We discussed the patient's case. He will be evaluating the patient for further management and care. Medical Decision The patient is an 87 year old white female with a past medical history of a recent right hip replacement 2 months ago who presents to the ED with a cc of a fever beginning 2 hours ago. Positive headache and post nasal drip. Negative chest pain, shortness of breath, cough, nausea, back pain, rash, or urinary symptoms. Triage Nursing notes reviewed. The patient's presentation and history were concerning for URI, pneumonia, bronchitis, UTI, and pyelonephritis. No complaints other than mild VALENCIA and URI symptoms. Prior UTI s/p hip replacement. Patient mild tachy. LA 2. UA w/ possible UTI given prior infections will treat. Given 30 cc/kg bolus total 1500. patient feeling well. Patient's age with tachycardia, mild SHASHANK, likely UTI as source. No ab pain or n/ v. Spoke w/ medicine service. Agree that patient would benefit from IVF and monitoring. Medication Reconcilliation Current Medication List: was personally reviewed by me Blood Pressure Screening Patient's blood pressure: Normal blood pressure Blood pressure disposition: Did not require urgent referral Consults Time Called: [phone] Consulting Physician: Dr. Kapoor - [facility] [place] Returned Call: [phone] Discussed the patient's case. The patient will be evaluated for further treatment and disposition. Impression Primary Impression: Febrile Additional Impression: UTI (urinary tract infection) Scribe Attestation The scribe's documentation has been prepared under my direction and personally reviewed by me in its entirety. I confirm that the note above accurately reflects all work, treatment, procedures, and medical decision making performed by me. Departure Information Dispostion Being Evaluated By Hospitalist Referrals Jhoan Mullen M.D. (PCP) Patient Instructions My [facility] Problem Qualifiers Primary Impression: Febrile Fever type: unspecified Qualified Codes: R50.9 - Fever, unspecified Additional Impression: UTI (urinary tract infection) Urinary tract infection type: acute cystitis Hematuria presence: without hematuria Qualified Codes: N30.00 - Acute cystitis without hematuria
[2017-03-07] MEDS ORDERED: SODIUM CHLORIDE 0.9% 1000ML 1,000 ML IV STA (22:41)
[2017-03-07] MEDS ORDERED: IBUPROFEN 200 MG TAB PO STA (22:41)
[2017-03-07] MEDS ORDERED: CITA20TA9 PO (22:52)
--- NOTE | 2017-03-07 22:53 | DIAGNOSTIC IMAGING REPORT ---
SINGLE VIEW CHEST CLINICAL HISTORY: Fever. FINDINGS: An AP, portable, upright chest radiograph is compared to study dated 12/24/2016. The examination is degraded by portable technique and patient rotation. The cardiomediastinal silhouette is unremarkable. There is atherosclerotic calcification of the thoracic aorta. A large hiatal hernia is identified. There is mild elevation of the right hemidiaphragm and bibasilar atelectasis. No airspace consolidation is seen typical for pneumonia. There is no large pleural effusion or pneumothorax. The skeletal structures are osteopenic. Arthritic changes present in the shoulders. Calcified joint body is noted on the left. IMPRESSION: 1. No acute cardiopulmonary abnormality. 2. Large hiatal hernia. Electronically signed by: Melvin Orourke M.D. 03/07/2017 10:51 PM Dictated Date/Time: 03/07/2017 10:50 PM
[2017-03-07 23:04] LABS: BASO % 0.1 %; BASO ABS # 0.01 K/uL (0-0.2); COMPLETE YES; EOS % 0.3 %; HEMATOCRIT 41.2 % (37-47); IG% 0.3 %; LYMPH % 5.2 %; LYMPH ABS # 0.46 K/uL (1.2-3.4); MEAN CELL VOLUME 88.8 fL (80-100); MEAN CORPUSCULAR HEMOGLOBIN 30.4 pg (25-34); MEAN CORPUSCULAR HGB CONC 34.2 g/dl (32-36); MONO % 3.9 %; NEUT % 90.2 %; PLATELET COUNT 176 K/uL (130-400); RED BLOOD COUNT 4.64 M/uL (4.2-5.4); WHITE BLOOD COUNT 8.89 K/uL (4.8-10.8)
[2017-03-07 23:23] LABS: BUN/CREATININE RATIO 19.2 (10-20); CREATININE 1.3 mg/dl (0.60-1.20); POTASSIUM 4.1 mmol/L (3.5-5.1)
[2017-03-07 23:26] LABS: ALB/GLOB RATIO 0.9 (0.9-2)
[2017-03-07 23:27] LABS: URINE APPEARANCE CLOUDY (CLEAR); URINE BILIRUBIN NEG (NEG); URINE COLOR DK YELLOW; URINE EPITHELIAL CELL AUTO >30 /lpf (0-5); URINE NITRITE NEG (NEG); URINE SPECIFIC GRAVITY 1.026 (1.000-1.030); UROBILINOGEN NEG (NEG); ZZUR CULT IF INDIC CLEAN CATCH YES
[2017-03-07 23:28] LABS: MANUAL MICROSCOPIC REQUIRED? NO; REVIEW REQ? NO
[2017-03-07 23:43] LABS: VEN BLD GAS O2 SATURATION 88.3 %; VEN BLOOD GAS BASE EXCESS -1.4 mEq/L
[2017-03-07] MEDS ORDERED: SODIUM CHLORIDE 0.9% 500ML 500 ML IV STA (23:49)
[2017-03-07] MEDS ORDERED: CEFTRIAXONE SOD INJ 1 GM ADDVIAL IV STA (23:49)
[2017-03-08] MEDS ORDERED: ALPRAZOLAM 0.25 MG TAB PO PRN (01:45)
[2017-03-08] MEDS ORDERED: ACETAMINOPHEN 500 MG TAB PO PRN (01:45)
[2017-03-08] MEDS ORDERED: POLYETHYLENE (MIRALAX) 17 GM PACK PO PRN (01:45)
[2017-03-08] MEDS ORDERED: ACETAMINOPHEN 325 MG TAB PO PRN (01:45)
[2017-03-08] MEDS ORDERED: ALUMINUM/MAGNESIUM/SIMETH (MAALOX MAX) 30 ML UDC PO PRN (01:45)
[2017-03-08] MEDS ORDERED: SENNA 8.6 MG TAB PO PRN (01:45)
[2017-03-08] MEDS ORDERED: MAGNESIUM HYDROXIDE SUSP 30 ML UDC PO PRN (01:45)
[2017-03-08] MEDS ORDERED: ONDANSETRON INJ 2 MG/ML 2 ML VIAL IV PRN (01:45)
--- NOTE | 2017-03-08 01:51 | History and Physical ---
History & Physical Date & Time of Service: Mar 08, 2017 at 01:41 Chief Complaint: High Fever,Recent Hip Replacement,Possibly Uti Primary Care Physician: Jhoan Mullen M.D. History of Present Illness Source: patient, family The patient presents today to the ED brought in by daughter. She was doing well at home up until 20:30 when she told her daughter she was feeling a little chilly. Daughter measured temperature of 102. Daughter called PCP to discuss and because of history of previous UTI after hip surgery in December, daughter felt she needed to come to the ED for further evaluation. They have had a normal appetite. Intake has been reduced, particularly reduced fluid intake. She states that she feels her mouth is dry. She denies dysuria or frequency. The patient denies nausea, vomiting diarrhea or constipation. The patient denies chest pain, palpitations, resting or exertional dyspnea, lightheadedness/syncope, orthopnea, or lower extremity edema. There is no coughing or wheezing. The patient denies, nightshifts. In the ED, she was given 2 L NSS. UA had positive Leukocyte esterase so she was given IV Ceftriaxone. Family History Emphysema Heart disease Social History Smoking Status: Never Smoker Smokeless Tobacco Use: No Drug Use: none Marital Status: Occupational Status: retired Immunizations History of Influenza Vaccine: Unknown History of Tetanus Vaccine?: Unknown History of Pneumococcal: Unknown History of Hepatitis B Vaccine: Unknown Multi-Drug Resistant Organisms History of MDRO: No Allergies Coded Allergies: No Known Allergies (Unverified , 03/07/17) Home Medications Scheduled B Complex W/ C (Vitamin B Complex-C), 1 CAP PO DAILY Calcium/Vitamin D (Os-Ari 500 Plus D), 1 TAB PO DAILY Citalopram Hydrobromide (Celexa), 20 MG PO DAILY Ferrous Sulfate (Iron), 1 TAB PO BID Raloxifene Hcl (Evista), 60 MG PO Q2D Simvastatin (Zocor), 40 MG PO Q2D Scheduled PRN Acetaminophen (Tylenol), 2 TAB PO BID PRN for Pain Alprazolam (Alprazolam), 1 DOSE PO DAILY PRN for ANXIETY Alprazolam (Xanax), 0.25 MG PO DAILY PRN for Anxiety/Agitation Senna (Senokot), 1 TAB PO DAILY PRN for Constipation Review of Systems A 10 point review of systems was negative unless stated above. Physical Exam Vital Signs Date Time Temp Pulse Resp B/P (MAP) Pulse Ox O2 Delivery O2 Flow Rate FiO2 03/08/17 01:25 108 22 95/57 94 03/08/17 01:23 94/55 03/08/17 01:12 90/49 03/08/17 01:12 90/49 03/08/17 00:55 106 18 94 03/08/17 00:50 103 18 95 03/08/17 00:20 102 18 95 03/08/17 00:00 37.3 03/07/17 23:50 106 23 93 03/07/17 23:45 106 28 91 03/07/17 23:15 104 27 94 03/07/17 22:50 94 Room Air 03/07/17 22:45 109 25 94 03/07/17 22:37 37.2 03/07/17 22:26 117 03/07/17 22:02 121 18 99/69 95 03/07/17 21:45 36.9 148 16 119/71 95 Room Air General Appearance: WD/WN, no apparent distress Head: normocephalic, atraumatic Eyes: normal inspection, EOMI ENT: hearing grossly normal, pharynx normal, + pertinent finding (dry tongue) Neck: supple, no adenopathy, thyroid normal Respiratory/Chest: lungs clear, no respiratory distress Cardiovascular: no gallop, no murmur, + tachycardia Abdomen/GI: normal bowel sounds, non tender, soft Back: no CVA tenderness, no muscle spasm Neurologic/Psych: alert, normal mood/affect, oriented x 3 Skin: normal color, warm/dry, no rash Lymphatic: no adenopathy Diagnostics Laboratory Results Results Past 24 Hours Test 03/07/17 22:20 03/07/17 22:39 03/07/17 22:43 03/07/17 23:02 Range/Units White Blood Count 8.89 4.8-10.8 K/uL Red Blood Count 4.64 4.2-5.4 M/uL Hemoglobin 14.1 12.0-16.0 g/dL Hematocrit 41.2 37-47 % Mean Corpuscular Volume 88.8 80-100 fL Mean Corpuscular Hemoglobin 30.4 25-34 pg Mean Corpuscular Hemoglobin Concent 34.2 32-36 g/dl Platelet Count 176 130-400 K/uL Mean Platelet Volume 10.0 7.4-10.4 fL Neutrophils (%) (Auto) 90.2 % Lymphocytes (%) (Auto) 5.2 % Monocytes (%) (Auto) 3.9 % Eosinophils (%) (Auto) 0.3 % Basophils (%) (Auto) 0.1 % Neutrophils # (Auto) 8.01 1.4-6.5 K/uL Lymphocytes # (Auto) 0.46 1.2-3.4 K/uL Monocytes # (Auto) 0.35 0.11-0.59 K/uL Eosinophils # (Auto) 0.03 0-0.5 K/uL Basophils # (Auto) 0.01 0-0.2 K/uL RDW Standard Deviation 47.4 36.4-46.3 fL RDW Coefficient of Variation 14.6 11.5-14.5 % Immature Granulocyte % (Auto) 0.3 % Immature Granulocyte # (Auto) 0.03 0.00-0.02 K/uL Urine Color DK YELLOW Urine Appearance CLOUDY CLEAR Urine pH 5.0 4.5-7.5 Urine Specific [place] 1.026 1.000-1.030 Urine Protein NEG NEG Urine Glucose (UA) NEG NEG Urine Ketones NEG NEG Urine Occult Blood NEG NEG Urine Nitrite NEG NEG Urine Bilirubin NEG NEG Urine Urobilinogen NEG NEG Urine Leukocyte Esterase LARGE NEG Urine WBC (Auto) >30 0-5 /hpf Urine RBC (Auto) 0-4 0-4 /hpf Urine Hyaline Casts (Auto) 1-5 0-5 /lpf Urine Epithelial Cells (Auto) >30 0-5 /lpf Urine Bacteria (Auto) NEG NEG Sodium Level 137 136-145 mmol/L Potassium Level 4.1 3.5-5.1 mmol/L Chloride Level 105 98-107 mmol/L Carbon Dioxide Level 25 21-32 mmol/L Anion Gap 7.0 3-11 mmol/L Blood Urea Nitrogen 25 7-18 mg/dl Creatinine 1.30 0.60-1.20 mg/dl Est Creatinine Clear Calc Drug Dose 26.2 ml/min Estimated GFR () 43.3 Estimated GFR (Non- 37.4 BUN/Creatinine Ratio 19.2 10-20 Random Glucose 147 70-99 mg/dl Calcium Level 9.0 8.5-10.1 mg/dl Total Bilirubin 0.3 0.2-1 mg/dl Aspartate Amino Transf (AST/SGOT) 20 15-37 U/L Alanine Aminotransferase (ALT/SGPT) 31 12-78 U/L Alkaline Phosphatase 74 45-117 U/L Total Protein 6.8 6.4-8.2 gm/dl Albumin 3.2 3.4-5.0 gm/dl Globulin 3.6 2.5-4.0 gm/dl Albumin/Globulin Ratio 0.9 0.9-2 Bedside Troponin I < 0.030 0-0.045 ng/ml Bedside Lactic Acid Venous 2.10 0.90-1.70 mmol/L Venous Blood pH 7.45 7.36-7.41 Venous Blood Partial Pressure CO2 33 38.0-50.0 mmHg Venous Blood Partial Pressure O2 58 mmHg Venous Blood HCO3 22 mmol/L Venous Blood Oxygen Saturation 88.3 % Venous Blood Base Excess -1.4 mEq/L Microbiology Results 03/07/17 Blood Culture, Received Pending 03/07/17 Blood Culture, Received Pending 03/07/17 Urine Culture, Received Pending Impression Assessment and Plan 87 year old female with SHASHANK, likely due to dehydration from low fluid intake. I am not convinced that she has an active UTI at the moment given the UA result. I will wait until the results of the culture come back to determine need for antibiotic Our plan is as follows: SHASHANK - Cr 1.3; baseline 0.7 BUN > Cr Ratio approximately 20 Urine SG > 1.020 suggesting effort to concentrate - Rehydration, NSS + 20 KCl @ 125 ml/hr - Monitor BMP; repeat today at 12:00 Possible UTI - IV Rocephin given in the ED - No urinary symptoms - UA Leukocyte esterase but > 30 epithelial cells; send culture - Previous cultures show pansensitive E coli. - Hold antibiotics at this time until urine culture result comes back Anxiety/Depression - Continue Xanax - Continue Citalopram Hypercholesterolemia - Continue Simvastatin DVT Prophylaxis - SCD Knee, JERZY Hose - Heparin 5000 U s.c. TID Code Status - Level I Full Code Disposition - Med/Surg - OT and PT evaluations Attending Addendum: I have physically seen and examined this patient, have supervised the medical residents activities, and agree with the H&P as noted above with the following exceptions as noted. The patient denies chest pain, palpitations, shortness of breath, cough, lower extremity swelling, sore throat, nausea, vomiting, diarrhea or constipation, abdominal pain, pelvic pain, blood in urine or stool, dysuria, urinary frequency or urgency, lightheadedness, dizziness, headache, memory loss, rash, abnormal bruising or bleeding, imbalance, focal weakness, numbness or tingling in arms or legs, generalized arthralgias or myalgias, back or neck pain, night sweats. The review of systems is otherwise negative other than for that already noted above, and at least 10 systems have been reviewed. The patient is awake, well-developed and adequately nourished, alert and oriented 3, normocephalic and atraumatic, lying in bed and in no acute distress. HEENT--PERRL, EOMI, mucous membranes and oropharynx dry. Neck--supple, no JVD or bruits, thyroid normal, trachea midline, no adenopathy. Heart--tachycardic and regular, no extra beats, no murmurs, rubs or gallops. Lungs--clear bilaterally with good air movement, no respiratory distress, no accessory muscle use. Abdomen--normal bowel sounds and soft, nontender and nondistended, no hernias or masses, no organomegaly. Extremities--no cyanosis, clubbing or edema. There are good distal pulses b/l. Dermatologic--normal skin turgor, normal color, warm and dry, no abnormal lymph nodes, no rash. Neurologic--cranial nerves II through XII grossly intact. Rheumatologic--normal range of motion, nontender, muscles and joints. Psychiatric--normal affect. Assessment and Plan: 1. Acute kidney injury/elevated temperature at home/history of UTIs/urinary frequency symptoms--patient will be admitted to the telemetry unit due to tachycardia. Normal saline with KCl 20 mEq 125 ML's per hour. Serial BMP and magnesium levels. Given ceftriaxone 1 g IV in the ED. Follow urine culture and sensitivity results to determine if antibiotics need to be continued. 2. Anxiety/depression--continue citalopram and Xanax. 3. Hypercholesterolemia--continue simvastatin. Level of Care Med/Surg Advanced Directives Existing Advance Directive: No Existing Living Will: No Existing Power of Pneumatic Tool Operator: No Resuscitation Status FULL RESUSCITATION VTE Prophylaxis Risk Level: Moderate Given or contraindicated: Enoxaparin (Lovenox)SQ Social Service Consult None Apply
[2017-03-08 02:15] VITALS: BP 99/63; PULSE 101; TEMP 36.7; O2SAT 93; Ht 160 cm; Wt 55.5 kg
[2017-03-08] MEDS: NSS + 20MEQ KCL 1000ML 1,000 ML IV SCH ×2 (03:10→12:37)
[2017-03-08] MEDS ORDERED: IV FLUIDS COMPLETED PRN (05:00)
[2017-03-08 05:57] LABS: PROTHROMBIN TIME (PATIENT) 10.8 SECONDS (9.0-12.0)
[2017-03-08] MEDS: HEPARIN SOD 5000 UNIT/0.5 ML CARP SQ SCH ×2 (06:00→14:12)
[2017-03-08 06:27] LABS: HEMATOCRIT 39.3 % (37-47); MEAN CELL VOLUME 89.9 fL (80-100); MEAN CORPUSCULAR HEMOGLOBIN 29.5 pg (25-34); MEAN CORPUSCULAR HGB CONC 32.8 g/dl (32-36); MEAN PLATELET VOLUME 9.7 fL (7.4-10.4); PLATELET COUNT 171 K/uL (130-400); RED BLOOD COUNT 4.37 M/uL (4.2-5.4); WHITE BLOOD COUNT 5.73 K/uL (4.8-10.8)
[2017-03-08 07:00] LABS: BUN/CREATININE RATIO 23.7 (10-20); CALCIUM 8.3 mg/dl (8.5-10.1); CREATININE 0.82 mg/dl (0.60-1.20); POTASSIUM 3.8 mmol/L (3.5-5.1)
[2017-03-08 07:06] VITALS: BP 109/67; PULSE 93; TEMP 36.6; O2SAT 96
[2017-03-08 08:00] VITALS: O2SAT 96
[2017-03-08] MEDS ORDERED: FERROUS SULFATE 325 MG TAB PO SCH (09:00)
[2017-03-08] MEDS ORDERED: RALOXIFENE 60 MG TAB PO SCH (09:00)
[2017-03-08] MEDS ORDERED: VITAMIN B COMPLEX TAB PO SCH (09:00)
[2017-03-08] MEDS ORDERED: CITALOPRAM 20 MG TAB PO SCH (09:00)
[2017-03-08] MEDS ORDERED: CALCIUM 600MG + VIT D 400 IU TAB PO SCH (09:00)
[2017-03-08 10:47] VITALS: BP 146/74; PULSE 94; O2SAT 93
[2017-03-08 12:51] LABS: BUN/CREATININE RATIO 26.9 (10-20); CALCIUM 8.9 mg/dl (8.5-10.1); CREATININE 0.64 mg/dl (0.60-1.20); POTASSIUM 4.2 mmol/L (3.5-5.1)
--- NOTE | 2017-03-08 14:21 | PROGRESS NOTE ---
DATE: 03/08/2017 DATE: 03/08/2017 I happened to find out that she was admitted to the hospital through the ER. At this point in time her right hip wound is clean. She has pain free range of motion of her hip with no sign of any discomfort. Her neurovascular check is normal. Occasionally describes some ache in her hip adductors. There are no objective findings of any issues there. From an orthopedic perspective there is no issue with her hip replacement at this point in time based on physical exam and history. I did not see any indication for additional imaging. She can be discharged at any time from my perspective. NADIA
--- NOTE | 2017-03-08 15:16 | Discharge Instructions ---
Discharge Instructions Date of Service Mar 08, 2017. Admission Reason for Admission: Acute Kidney Failure Discharge Discharge Diagnosis / Problem: dehydration Acute Kidney Injury Discharge Goals Goal(s): Improve function Activity Recommendations Activity Limitations: resume your previous activity . Current Hospital Diet Patient's current hospital diet: Regular Diet Discharge Diet Recommended Diet: Regular Diet Pending Studies Studies pending at discharge: yes (blood cultures) List of pending studies: blood cultures Medical Emergencies . Who to Call and When: Medical Emergencies: If at any time you feel your situation is an emergency, please call 911 immediately. . Non-Emergent Contact Non-Emergency issues call your: Primary Care Provider Call Non-Emergent contact if: temperature is above 101.5 . Past History Medical & Surgical History: (1) UTI (urinary tract infection) (2) Acute kidney failure (3) DJD (degenerative joint disease) of hip . "Provider Documentation" section prepared by Brian Arciniega. . VTE Core Measure Inpt VTE Proph given/why not?: Enoxaparin (Lovenox)SQ
[2017-03-08 16:13] VITALS: BP 146/74; PULSE 94; TEMP 36.6; O2SAT 93
[2017-03-09] MEDS ORDERED: SIMVASTATIN 40 MG TAB PO SCH (21:00)
--- NOTE | 2017-03-12 02:19 | DISCHARGE SUMMARY ---
Please see dictated H and P for full details. HISTORY OF PRESENT ILLNESS: The patient is an 87-year-old who had an episode of fever up to 102, she had had a prior urinary tract infection and hip surgery in December and she came into the Emergency Room for evaluation. In the Emergency Room, she was given 2 liters of normal saline, had positive leukocyte esterase in her urine and was given IV Rocephin. The patient had blood and urine cultures sent. The urinalysis showed multiple epithelial cells, making a poor sample portion and a further review of the patient's clinical information revealed no more temperature spikes. Her chest x-ray had no acute cardiopulmonary abnormality, large hiatal hernia. She was seen in consultation by Dr. Schreiber who performed orthopedic surgery. He examined the patient, found no need for additional imaging and no signs of orthopedic infection and based on the findings of no objective information to suggest bacterial infection. Case was discussed with the patient and her daughter and she opted to go home. She had a white count of 5.7. BUN of 19 and 0.82 on admission and on observation with hydration 17 and 0.64. She was agreed to discharge to follow up with her primary care doctor in 1 week. Time spent in review of the chart, discussion with the patient on the date of discharge 31 minutes.
== END 2017-03-08 16:45 | disposition home or self-care (01) ==
LOC: C.EDB 21:37 → C.MED 03-08 01:55 → ENRESERV 03-08 02:00
PROVIDERS: ADMIT Student in an Organized Health Care Education/Training Program; ATTEND Hospitalist
DX: N30.00 Acute cystitis without hematuria (principal); Z82.49 Family history of ischemic heart disease and other diseases of the circulatory system; Z83.6 Family history of other diseases of the respiratory system; N28.9 Disorder of kidney and ureter, unspecified; F32.9 Major depressive disorder, single episode, unspecified; F41.9 Anxiety disorder, unspecified; E78.00 Pure hypercholesterolemia, unspecified; Z96.641 Presence of right artificial hip joint; K44.9 Diaphragmatic hernia without obstruction or gangrene

== ENCOUNTER → 2017-05-14 | Outpatient (CLI) | payer OTHER, MEDICARE ==
[~2017-05-14] MED LIST changes: +ALPR0.25 PO; -ASCO500T16 PO; +B COCAP3 PO; +CITA20TA9 PO; -CMD2 PO; -DOCU100C31 PO; +FERR1TAB23 PO; -HYDR-4079 PO; -HYDR-5688 PO; -MULT-116 PO; -NYSS/ PO; -RALO60TA12 PO; +RALO60TA30 PO; -THIA100T11 PO
== END | disposition home or self-care (01) ==
LOC: C.RDSM 14:18
PROVIDERS: ATTEND Physical Medicine & Rehabilitation Sports Medicine
DX: Z96.641 Presence of right artificial hip joint (principal)

== ENCOUNTER → 2017-07-24 | Outpatient (CLI) | payer OTHER, MEDICARE ==
[2017-07-24 17:28] LABS: ALBUMIN 3.3 gm/dl (3.4-5.0); ALT/SGPT 30 U/L (12-78); BLOOD UREA NITROGEN 20 mg/dl (7-18); CALCIUM 9.5 mg/dl (8.5-10.1); CARBON DIOXIDE 28 mmol/L (21-32); CHOLESTEROL 191 mg/dl (0-200); CREATININE 0.81 mg/dl (0.60-1.20); GLUCOSE 110 mg/dl (70-99); SODIUM 138 mmol/L (136-145)
[2017-07-24 17:31] LABS: ALKALINE PHOSPHATASE 89 U/L (45-117); AST/SGOT 20 U/L (15-37); LDL CHOLESTEROL CALCULATED 84 mg/dl; TOTAL PROTEIN 7.3 gm/dl (6.4-8.2)
== END | disposition home or self-care (01) ==
LOC: C.LABBC 13:50
PROVIDERS: ATTEND Physician Assistant Medical
DX: E78.5 Hyperlipidemia, unspecified (principal)

== ENCOUNTER 2019-06-15 20:15 | Inpatient (IN) ==
[2019-06-15] MEDS ORDERED: LORazepam 1 MG TAB ONE (20:21)
[2019-06-15] MEDS ORDERED: LORazepam 1 MG TAB SL STA (20:24)
[2019-06-15] MEDS ORDERED: CEFEPIME 2,000 MG/20 ML VIAL IV STA (20:24)
--- NOTE | 2019-06-15 20:47 | XRay Report ---
XR chest 1V portable CLINICAL HISTORY: Sepsis COMPARISON STUDY: 03/07/2017 FINDINGS: The heart is the upper limits of normal in size. There is a retrocardiac opacity consistent with a hiatal hernia. There is diffuse elevation of interstitium. While likely secondary to congesti ve failure, a bilateral interstitial inflammatory processes could appear similar. Clinical and radiog raphic follow-up is recommended. There is no lobar consolidation. There are no large pleural effusion s[ IMPRESSION: 1. Diffuse elevation of the interstitium. While likely secondary to congestive failure, a bilateral i nterstitial inflammatory/infectious process could appear similar. Clinical and radiographic follow-up is recommended. Electronically signed by: Blayne Gale M.D. 06/15/2019 8:46 PM
[2019-06-15 21:11] LABS: Hematocrit (blood only) 37.9 % (37-47); Hemoglobin 12.4 g/dL (12.0-16.0); Mean Corpuscular Hemoglobin 30.3 pg (25-34); Mean Corpuscular Hgb Conc 32.7 g/dL (32-36); Mean Corpuscular Volume 92.7 fL (80-100); Mean Platelet Volume 9.4 fL (7.4-10.4); Platelet Count 283 K/uL (130-400); RDW Coefficient of Variation 13.9 % (11.5-14.5); RDW Standard Deviation 47.2 fL (36.4-46.3); Red Blood Count 4.09 M/uL (4.2-5.4); White Blood Count 9.77 K/uL (4.8-10.8)
[2019-06-15 21:20] LABS: INR 1.1 (0.9-1.1); Partial Thromboplastin Ratio 0.9; Partial Thromboplastin Time 24.5 Seconds (21.0-31.0); Prothrombin Time 11.6 Seconds (9.0-12.0)
[2019-06-15 21:28] LABS: Alanine Aminotransferase 23 U/L (12-78); Aspartate Aminotransferase 18 U/L (15-37); BUN Creatinine Ratio 23.5 (10-20); Blood Urea Nitrogen 18 mg/dl (7-18); Calcium 9.4 mg/dl (8.5-10.1); Carbon Dioxide 27 mmol/L (21-32); Chloride 103 mmol/L (98-107); Creatinine Clr Calc Pharmacy 44.4 ml/min; Est GFR (African American) 80.5; Est GFR (Non-African American) 69.4; Glucose 88 mg/dl (70-99); Potassium 3.7 mmol/L (3.5-5.1); Sodium 138 mmol/L (136-145)
[2019-06-15 21:30] LABS: Basophils # (auto) 0.01 K/uL (0-0.2); Basophils % (auto) 0.1 %; Eosinophils # (auto) 0.42 K/uL (0-0.5); Eosinophils % (auto) 4.3 %; Immature Granulocytes # (auto) 0.55 K/uL (0.00-0.02); Immature Granulocytes % (auto) 5.6 %; Lymphocytes # (auto) 1.23 K/uL (1.2-3.4); Lymphocytes % (auto) 12.6 %; Monocytes # (auto) 0.85 K/uL (0.11-0.59); Monocytes % (auto) 8.7 %; Neutrophils # (auto) 6.71 K/uL (1.4-6.5); Neutrophils % (auto) 68.7 %
[2019-06-15 21:31] LABS: Albumin Globulin Ratio 0.5 (0.9-2); Alkaline Phosphatase 68 U/L (45-117); Bilirubin,Total 0.2 mg/dl (0.2-1); Globulin 4.3 gm/dl (2.5-4.0); Total Protein 6.3 gm/dl (6.4-8.2)
[2019-06-15] MEDS ORDERED: ALBUT/IPRATROP 3MG/0.5MG NEB 3 ML VIAL NEB STA (21:42)
--- NOTE | 2019-06-15 22:47 | Emergency Department Note ---
Entered by Jacklyn Sena acting as a scribe for History of Present Illness General Chief complaint: Urinary Symptoms Stated complaint: UTI, r/o sepsis Time Seen by Provider: 06/15/19 20:23 Source: family (daughter) Mode of arrival: EMS Limitations: altered mental status History of Present Illness Onset (ago): day(s) 1 Pain Consistency: + constant Relieved By: + none Exacerbated By: + none Associated symptoms: + confusion, + loss of appetite and + other (low oxygen s aturation, low blood pressure) Treatments prior to arrival: none The patient is a 89 year old female who presents to the Emergency Room with complaints of urinary symptoms that started over a week ago, but worsened today. The patient is from [facility]. She was reported to have a fever of 102.5 today, as well as to be experiencing confusion, low oxygen saturation, and low blood pressure. The patient does not normally wear oxygen. Her daughter reports that she was diagnosed with a UTI 2 days ago and was put on antibiotics. She was on the antibiotic for 5 days, went off of it for 2 days, and then took 2 or 3 doses of Cipro yesterday. The patient is a DNR. The patients daughter notes that she does have dementia, and can often be combative. She also states that they had trouble inserting a catheter last time and gave up after 4 attempts. She notes that her mother has been refusing to eat or drink a sufficient amount as well. Home Medications Home Medications Medication Instructions Recorded Confirmed Type ibuprofen 200 mg PO Q24H PRN 12/17/18 06/15/19 History sennosides [senna] 8.6 mg PO DAILY PRN 12/17/18 06/15/19 History acetaminophen 500 mg tablet 500 mg PO Q4H PRN tab MDD 3 gms 03/05/19 06/15/19 History APAP/24 Hours calcium carbonate 600 mg (1,500 1 tab PO QAM tab 03/11/19 06/15/19 History mg)-vitamin D3 400 unit tablet buspirone 5 mg tablet 5 mg PO TID #90 tab 04/11/19 06/15/19 Rx divalproex 125 mg tablet,delayed 250 mg PO BID #120 tab 04/11/19 06/15/19 Rx release vitamin B complex 1 tab PO DAILY #90 tab 04/11/19 06/15/19 Rx ciprofloxacin HCl 250 mg PO BID 06/15/19 06/15/19 History donepezil 10 mg PO QPM 06/15/19 06/15/19 History escitalopram oxalate 15 mg PO DAILY 06/15/19 06/15/19 History memantine [Namenda] 10 mg PO DAILY 06/15/19 06/15/19 History mirtazapine 15 mg PO HS 06/15/19 06/15/19 History Allergies Allergy/AdvReac Type Severity Reaction Status Date / Time No Known Allergies Allergy Verified 06/15/19 21:03 Past Med/Surg History Medical History Acute kidney failure Anorexia (Acute) Anxiety (Acute) Cervical spondylolysis (Acute) Cervicalgia (Acute) Depression (Acute) DJD (degenerative joint disease) of hip Gait disturbance (Acute) Headache (Acute) Hyperlipidemia (Acute) Insomnia (Acute) Joint pain in the shoulder/clavicle region (Acute) Lumbar radiculopathy (Acute) Memory problem (Acute) Microcytic anemia (Acute) Osteopenia (Acute) Posterior pain of right hip (Acute) Right bundle branch block (Acute) Sacral radiculopathy (Acute) Sicca syndrome (Acute) Family History Father Heart disease Mother Heart disease Other Family history non-contributory Social History Preferred Language: Colombian marital status: / Current Living Situation: Family current occupational status: retired Feels Safe at Home: Yes Smoking Status: Never smoker Review of Systems See HPI for pertinent positives & negatives. and A total of 10 systems reviewed and were otherwise negative Physical Exam Vital Signs Vital Signs - 24 hr 06/15/19 20:08 06/15/19 20:22 06/15/19 20:24 Temperature 36.9 C Temperature Source Oral Pulse Rate 93 H Pulse Rate [Right Finger] Pulse Rate from SpO2 Sensor 88 Pulse Rhythm Regular Respiratory Rate 20 Respiratory Effort / Characteristics Non-Labored Spontaneous Respiratory Depth Shallow Respiratory Pattern Regular Blood Pressure 114/66 114/66 Blood Pressure Mean 82 72 Pulse Oximetry 87 L 92 93 Oxygen Delivery Method Room Air Nasal Cannula Oxygen Flow Rate 3 3 Sepsis Recent Fever Within 48 Hours Yes Sepsis New/Unexplained Change in Mental Status No Sepsis Action Taken by Nursing No Action Required 06/15/19 21:31 06/15/19 21:59 06/15/19 22:00 Temperature 36.9 C Temperature Source Pulse Rate 89 91 H Pulse Rate [Right Finger] 96 H Pulse Rate from SpO2 Sensor 90 90 Pulse Rhythm Respiratory Rate 22 19 Respiratory Effort / Characteristics Spontaneous Respiratory Depth Respiratory Pattern Blood Pressure 140/76 122/78 Blood Pressure Mean 108 89 Pulse Oximetry 93 90 97 Oxygen Delivery Method Nasal Cannula Nebulizer Oxygen Flow Rate 3 2 Sepsis Recent Fever Within 48 Hours Sepsis New/Unexplained Change in Mental Status Sepsis Action Taken by Nursing 06/15/19 22:19 06/15/19 23:00 Temperature Temperature Source Pulse Rate 100 H Pulse Rate [Right Finger] Pulse Rate from SpO2 Sensor 104 H Pulse Rhythm Respiratory Rate Respiratory Effort / Characteristics Respiratory Depth Respiratory Pattern Blood Pressure 101/47 L Blood Pressure Mean 55 Pulse Oximetry 85 L 93 Oxygen Delivery Method Room Air Oxygen Flow Rate 2 Sepsis Recent Fever Within 48 Hours Sepsis New/Unexplained Change in Mental Status Sepsis Action Taken by Nursing GENERAL: Patient is in no acute distress. HEENT: No acute trauma, normocephalic atraumatic, dry mucous membranes, no nasal congestion, no scleral icterus. NECK: No stridor, no adenopathy, no meningismus, trachea is midline. LUNGS: Clear to auscultation when listening anteriorly. No respiratory distress. No wheezing. HEART: Without murmurs gallops or rubs, regular rate and rhythm. ABDOMEN: Soft, nontender, bowel sounds positive, no hernias, no peritonitis. EXTREMITIES: No cyanosis or edema, full range of motion of all the joints without pain or difficulty, no signs for acute trauma. NEUROLOGIC: Awake and alert. Confused. Verbally combative. Moves all extremities. SKIN: No rash, no jaundice, no diaphoresis. Course Course 2015: Past medical records reviewed. The patient was evaluated in room C07. A complete history and physical exam was performed. 2100: I talked to the nurse and discussed changing the fluids to KVO. 2201: I spoke to the family regarding the patients imaging and lab results. The patient is resting comfortably. The nurses are going to take her off oxygen and see how she does. 8: The patient was 85% on room air when taken off of oxygen. 7: I suggested a chest CT to further investigate the patients symptoms, and she consented to the scan. 2233: I reviewed the urinalysis done yesterday, which showed no evidence for infection. 2314: The patient only received 500 cc of fluid. I spoke to the family, and ba sed on the CT results, we are going to give the patient IV Lasix. 2336: Dr. Kapoor, [facility] hospitalist, has been notified regarding the patient. Administered Medications Ioversol (Optiray 320 125ml) 76 ml IV ONCE PRN PRN Reason: Interaction Checking Stop: 06/19/19 22:55 Last Admin: 06/15/19 22:56 Dose: 76 ml Documented by: [id number] Discontinued Medications Albuterol (Duoneb) 3 ml NEB NOW STA Stop: 06/15/19 21:43 Last Admin: 06/15/19 21:53 Dose: 3 ml Documented by: [id number] Furosemide (Lasix) 20 mg IV NOW STA Stop: 06/15/19 23:09 Last Admin: 06/15/19 23:18 Dose: 20 mg Documented by: [id number] Cefepime HCl (Maxipime) 2,000 mg in 20 mls @ 5 mls/min IV NOW STA; Protocol Stop: 06/15/19 20:27 Last Admin: 06/15/19 21:06 Dose: 5 mls/min Documented by: [id number] Lorazepam (Ativan) Confirm Administered Dose 2 mg .ROUTE .STK-MED ONE Stop: 06/15/19 20:22 Last Admin: 06/15/19 20:23 Dose: 2 mg Documented by: [id number] Lorazepam (Ativan) 2 mg SL NOW STA Stop: 06/15/19 20:25 Last Admin: 06/15/19 20:54 Dose: Not Given Documented by: [id number] Critical Care Time Critical Care Time: Yes Total Critical Care Time: 36 I have personally spent 36 minutes of critical care time in the direct management of this patient. This includes bedside care, interpretation of diagnostic studies, and testing, discussion with consultants, patient, and family members, and other required patient management activities. This 36 minutes is in excess of all separately billable procedures. Medical Decision Making Differential Diagnosis Differential diagnosis includes, but is not limited to: sepsis, UTI, pneumonia, bronchitis, influenza, renal or liver failure, electrolyte imbalance, de hydration, failed outpatient treatment, among others were considered. Medical Records Attestation: I reviewed the patient's medical records. Home Medications Current Medication List: was personally reviewed by me Laboratory Data Attestation: I reviewed the patient's lab results. Result diagrams: 06/15/19 20:49 06/15/19 20:49 Lab Results 06/15/19 06/15/19 06/15/19 Range/Units 20:48 20:48 20:49 WBC 9.77 (4.8-10.8) K/uL RBC 4.09 L (4.2-5.4) M/uL Hgb 12.4 (12.0-16.0) g/dL Hct 37.9 (37-47) % MCV 92.7 (80-100) fL MCH 30.3 (25-34) pg MCHC 32.7 (32-36) g/dL RDW Std Deviation 47.2 H (36.4-46.3) fL RDW Coeff of Jacque 13.9 (11.5-14.5) % Plt Count 283 (130-400) K/uL MPV 9.4 (7.4-10.4) fL Immature Gran % (Auto) 5.6 % Neut % (Auto) 68.7 % Lymph % (Auto) 12.6 % Davis % (Auto) 8.7 % Eos % (Auto) 4.3 % Baso % (Auto) 0.1 % Immature Gran # (Auto) 0.55 H (0.00-0.02) K/uL Neut # (Auto) 6.71 H (1.4-6.5) K/uL Lymph # (Auto) 1.23 (1.2-3.4) K/uL Davis # (Auto) 0.85 H (0.11-0.59) K/uL Eos # (Auto) 0.42 (0-0.5) K/uL Baso # (Auto) 0.01 (0-0.2) K/uL PT 11.6 (9.0-12.0) Seconds INR 1.1 (0.9-1.1) APTT 24.5 (21.0-31.0) Seconds PTT Ratio 0.9 Sodium (136-145) mmol/L Potassium (3.5-5.1) mmol/L Chloride (98-107) mmol/L Carbon Dioxide (21-32) mmol/L Anion Gap (3-11) BUN (7-18) mg/dl Creatinine (0.6-1.2) mg/dl Est Cr Clr Drug Dosing ml/min Est GFR ( Amer) Est GFR (Non-Af Amer) BUN/Creatinine Ratio (10-20) Glucose (70-99) mg/dl Lactate (0.4-2.0) mmol/L Calcium (8.5-10.1) mg/dl Magnesium (1.8-2.4) mg/dl Total Bilirubin (0.2-1) mg/dl AST (15-37) U/L ALT (12-78) U/L Alkaline Phosphatase (45-117) U/L NT-Pro-B Natriuret Pep (0-1800) pg/ml Total Protein (6.4-8.2) gm/dl Albumin (3.4-5.0) gm/dl Globulin (2.5-4.0) gm/dl Albumin/Globulin Ratio (0.9-2) Procalcitonin 0.75 H (0-0.5) ng/ml Valproic Acid (50-100) mcg/ml 06/15/19 06/15/19 06/15/19 Range/Units 20:49 20:49 20:49 WBC (4.8-10.8) K/uL RBC (4.2-5.4) M/uL Hgb (12.0-16.0) g/dL Hct (37-47) % MCV (80-100) fL MCH (25-34) pg MCHC (32-36) g/dL RDW Std Deviation (36.4-46.3) fL RDW Coeff of Jacque (11.5-14.5) % Plt Count (130-400) K/uL MPV (7.4-10.4) fL Immature Gran % (Auto) % Neut % (Auto) % Lymph % (Auto) % Davis % (Auto) % Eos % (Auto) % Baso % (Auto) % Immature Gran # (Auto) (0.00-0.02) K/uL Neut # (Auto) (1.4-6.5) K/uL Lymph # (Auto) (1.2-3.4) K/uL Davis # (Auto) (0.11-0.59) K/uL Eos # (Auto) (0-0.5) K/uL Baso # (Auto) (0-0.2) K/uL PT (9.0-12.0) Seconds INR (0.9-1.1) APTT (21.0-31.0) Seconds PTT Ratio Sodium 138 (136-145) mmol/L Potassium 3.7 (3.5-5.1) mmol/L Chloride 103 (98-107) mmol/L Carbon Dioxide 27 (21-32) mmol/L Anion Gap 8.0 (3-11) BUN 18 (7-18) mg/dl Creatinine 0.77 (0.6-1.2) mg/dl Est Cr Clr Drug Dosing 44.4 ml/min Est GFR ( Amer) 80.5 Est GFR (Non-Af Amer) 69.4 BUN/Creatinine Ratio 23.5 H (10-20) Glucose 88 (70-99) mg/dl Lactate 1.7 (0.4-2.0) mmol/L Calcium 9.4 (8.5-10.1) mg/dl Magnesium 2.0 (1.8-2.4) mg/dl Total Bilirubin 0.2 (0.2-1) mg/dl AST 18 (15-37) U/L ALT 23 (12-78) U/L Alkaline Phosphatase 68 (45-117) U/L NT-Pro-B Natriuret Pep (0-1800) pg/ml Total Protein 6.3 L (6.4-8.2) gm/dl Albumin 2.0 L (3.4-5.0) gm/dl Globulin 4.3 H (2.5-4.0) gm/dl Albumin/Globulin Ratio 0.5 L (0.9-2) Procalcitonin (0-0.5) ng/ml Valproic Acid 42 L (50-100) mcg/ml 06/15/19 Range/Units 20:49 WBC (4.8-10.8) K/uL RBC (4.2-5.4) M/uL Hgb (12.0-16.0) g/dL Hct (37-47) % MCV (80-100) fL MCH (25-34) pg MCHC (32-36) g/dL RDW Std Deviation (36.4-46.3) fL RDW Coeff of Jacque (11.5-14.5) % Plt Count (130-400) K/uL MPV (7.4-10.4) fL Immature Gran % (Auto) % Neut % (Auto) % Lymph % (Auto) % Davis % (Auto) % Eos % (Auto) % Baso % (Auto) % Immature Gran # (Auto) (0.00-0.02) K/uL Neut # (Auto) (1.4-6.5) K/uL Lymph # (Auto) (1.2-3.4) K/uL Davis # (Auto) (0.11-0.59) K/uL Eos # (Auto) (0-0.5) K/uL Baso # (Auto) (0-0.2) K/uL PT (9.0-12.0) Seconds INR (0.9-1.1) APTT (21.0-31.0) Seconds PTT Ratio Sodium (136-145) mmol/L Potassium (3.5-5.1) mmol/L Chloride (98-107) mmol/L Carbon Dioxide (21-32) mmol/L Anion Gap (3-11) BUN (7-18) mg/dl Creatinine (0.6-1.2) mg/dl Est Cr Clr Drug Dosing ml/min Est GFR ( Amer) Est GFR (Non-Af Amer) BUN/Creatinine Ratio (10-20) Glucose (70-99) mg/dl Lactate (0.4-2.0) mmol/L Calcium (8.5-10.1) mg/dl Magnesium (1.8-2.4) mg/dl Total Bilirubin (0.2-1) mg/dl AST (15-37) U/L ALT (12-78) U/L Alkaline Phosphatase (45-117) U/L NT-Pro-B Natriuret Pep 343 (0-1800) pg/ml Total Protein (6.4-8.2) gm/dl Albumin (3.4-5.0) gm/dl Globulin (2.5-4.0) gm/dl Albumin/Globulin Ratio (0.9-2) Procalcitonin (0-0.5) ng/ml Valproic Acid (50-100) mcg/ml Imaging Data Radiologist's Impression: Radiology results as stated below per my review and the radiologist's interpretation: XR chest 1V portable CLINICAL HISTORY: Sepsis COMPARISON STUDY: 03/07/2017 FINDINGS: The heart is the upper limits of normal in size. There is a r etrocardiac opacity consistent with a hiatal hernia. There is diffuse elevation of interstitium. While likely secondary to congestive failure, a bilateral interstitial inflammatory processes could appear similar. Clinical and radiographic follow-up is recommended. There is no lobar consolidation. There are no large pleural effusions[ IMPRESSION: 1. Diffuse elevation of the interstitium. While likely secondary to congestive failure, a bilateral interstitial inflammatory/infectious process could appear similar. Clinical and radiographic follow-up is recommended. Electronically signed by: Blayne Gale M.D. 06/15/2019 8:[address] ANGIOGRAM OF THE CHEST CLINICAL HISTORY: Shortness of breath. Hypoxia. Suspected pulmonary embolism COMPARISON STUDY: Chest x-ray dated 06/15/2019 TECHNIQUE: Following the IV administration of 76 mL of Optiray-320, CT angiogram of the thorax was performed from the thoracic inlet to the lung bases utilizing the pulmonary embolus protocol. Images are reviewed in the axial, sagittal, and coronal planes. IV contrast was administered without complication. MIP imaging was performed. A dose lowering technique was utilized adhering to the principles of ALARA. CT DOSE: 339.10 mGy.cm FINDINGS: There is a multinodular thyroid gland. Current recommendations indicate no necessity for additional follow-up given the age of the patient and size of the nodules. There are mildly enlarged right hilar lymph nodes. Left hilar lymph nodes are the upper limits of normal in size. There is a mildly enlarged AP window lymph node. There is no pathologic axillary lymphadenopathy. There is a large hiatal hernia. There is a 24 mm hepatic cyst versus adrenal adenoma. There was no evidence of thoracic aortic dilatation. There were no pulmonary artery filling defects to indicate acute pulmonary embolism. There are small bilateral pleural effusions There are dependent pulmonary airspace opacities consistent with atelectasis. There are bilateral groundglass opacities consistent with pulmonary edema. There is mild septal edema. Evaluation the lung parenchyma is limited due to respiratory motion artifact. There is a 12 mm nodule at the right lung base. A 3 month follow-up CT scan is recommended. IMPRESSION: 1. No evidence of acute pulmonary embolism 2. CT evidence of congestive failure with pulmonary edema and small bilateral pleural effusions 3. Mild adenopathy 4. Nonspecific 12 mm right lower lobe nodule. A 3 month follow-up CT scan is recommended 5. Large hiatal hernia Electronically signed by: Blayne Gale M.D. 06/15/2019 11:03 PM ECG Data Attestation: I personally reviewed and interpreted this ECG as follows: Indication: + altered mental status Rate (beats per minute): 87 Rhythm: + normal sinus ECG Intervals/blocks: + Right Bundle branch block ECG ST segments: no ST elevation ECG Findings: + Other (QTC = 493); no PVCs MDM Narrative There is no leukocytosis or concerning anemia. No coagulopathy. No significant electrolyte abnormality or kidney failure. Lactic acid level is not elevated making sepsis less likely. No concerning liver enzyme elevation. Procalcitonin level was very mildly elevated. Valproic acid level was subtherapeutic. Influenza testing is currently pending. Chest film suggested some CHF, the BNP was not elevated. Chest CT did not show PE, CHF was noted. No pneumonia. ECG showed a sinus rhythm, there was a right bundle branch block, no acute ischemia. Troponin testing is currently pending. Influenza testing is pending. The patient presents hypoxic and hypotensive. She reportedly had a fever earlier. I was able to review her urinalysis results from yesterday through the [employer] system, there was no signs of urinary infection. The patient received a DuoNeb, she was placed on nasal cannula oxygen. She received IV cefepime for empiric antibiotic coverage. She was given 2 mg of Ativan sublingual to help with relaxation. She eventually received a 20 mg dose of IV Lasix. The patient presents with concerns for sepsis however, her work-up suggests CHF and hypoxia rather than sepsis. I did speak to the family at length. I spoke with case management. Given the hypoxia, given the CHF, hospitalization is warranted. The on-call hospitalist was consulted. Impression & Plan Hypoxia, Fever, Hypotension, CHF (congestive heart failure) Discharge Plan Visit Data Chief Complaint: Urinary Symptoms Stated Complaint: UTI, r/o sepsis ED Provider: Melvin Pineda Discharge Problem: Hypoxia, Fever, Hypotension, CHF (congestive heart failure) Forms Stand Alone Forms: My [facility] Prescriptions Prescriptions: No Action buspirone 5 mg tablet 5 mg PO TID Qty: 90 RF: 2 divalproex [Depakote] 125 mg tablet,delayed release (DR/EC) 250 mg PO BID Qty: 120 RF: 2 vitamin B complex tablet 1 tab PO DAILY Qty: 90 RF: 2 acetaminophen 500 mg tablet 500 mg PO Q4H MDD 3 gms APAP/24 Hours PRN (Reason: Fever Or Pain) RF: 0 calcium carbonate-vitamin D3 600 mg(1,500mg) -400 unit tablet 1 tab PO QAM RF: 0 sennosides [senna] 8.6 mg Tablet 8.6 mg PO DAILY PRN (Reason: Constipation) RF: 0 ibuprofen 200 mg Tablet 200 mg PO Q24H PRN (Reason: Pain) RF: 0 ciprofloxacin HCl 250 mg tablet 250 mg PO BID RF: 0 mirtazapine 15 mg tablet 15 mg PO HS RF: 0 donepezil 10 mg tablet 10 mg PO QPM RF: 0 escitalopram oxalate 10 mg tablet 15 mg PO DAILY RF: 0 memantine [Namenda] 10 mg tablet 10 mg PO DAILY RF: 0 Discharge Problem: Fever Qualifiers: Fever type: unspecified Qualified Code(s): R50.9 - Fever, unspecified Hypotension Qualifiers: Hypotension type: unspecified hypotension type Qualified Code(s): I95.9 - Hypotension, unspecified CHF (congestive heart failure) Qualifiers: Heart failure type: unspecified Heart failure chronicity: acute Qualified Code(s): I50.9 - Heart failure, unspecified The scribe's documentation has been prepared under my direction and personally reviewed by me in its entirety. I confirm that the note above accurately reflects all work, treatment, procedures, and medical decision making performed by me.
[2019-06-15] MEDS ORDERED: OPTIRAY 320 125ml IV PRN (22:56)
--- NOTE | 2019-06-15 23:05 | CT Scan Report ---
CT ANGIOGRAM OF THE CHEST CLINICAL HISTORY: Shortness of breath. Hypoxia. Suspected pulmonary embolism COMPARISON STUDY: Chest x-ray dated 06/15/2019 TECHNIQUE: Following the IV administration of 76 mL of Optiray-320, CT angiogram of the thorax was pe rformed from the thoracic inlet to the lung bases utilizing the pulmonary embolus protocol. Images ar e reviewed in the axial, sagittal, and coronal planes. IV contrast was administered without complicat ion. MIP imaging was performed. A dose lowering technique was utilized adhering to the principles of ALARA. CT DOSE: 339.10 mGy.cm FINDINGS: There is a multinodular thyroid gland. Current recommendations indicate no necessity for additional follow-up given the age of the patient a nd size of the nodules. There are mildly enlarged right hilar lymph nodes. Left hilar lymph nodes are the upper limits of nor mal in size. There is a mildly enlarged AP window lymph node. There is no pathologic axillary lymphad enopathy. There is a large hiatal hernia. There is a 24 mm hepatic cyst versus adrenal adenoma. There was no evidence of thoracic aortic dilatation. There were no pulmonary artery filling defects to indicate acute pulmonary embolism. There are small bilateral pleural effusions There are dependent pulmonary airspace opacities consistent with atelectasis. There are bilateral elyse undglass opacities consistent with pulmonary edema. There is mild septal edema. Evaluation the lung p arenchyma is limited due to respiratory motion artifact. There is a 12 mm nodule at the right lung ba se. A 3 month follow-up CT scan is recommended. IMPRESSION: 1. No evidence of acute pulmonary embolism 2. CT evidence of congestive failure with pulmonary edema and small bilateral pleural effusions 3. Mild adenopathy 4. Nonspecific 12 mm right lower lobe nodule. A 3 month follow-up CT scan is recommended 5. Large hiatal hernia Electronically signed by: Blayne Gale M.D. 06/15/2019 11:03 PM
[2019-06-15] MEDS ORDERED: FUROSEMIDE 40 MG/4 ML VIAL IV STA (23:08)
[2019-06-15 23:48] LABS: Influenza A virus by PCR Neg for Influ A (Neg); Influenza B virus by PCR Neg for Influ B (Neg)
[2019-06-16 00:01] LABS: Troponin I < 0.015 ng/ml (0-0.045)
[2019-06-16 01:01] LABS: Appearance Urine Clear (Clear); Bacteria Urine Automated Negative (Negative); Bilirubin Urine Negative (Negative); Blood Urine Negative (Negative); Color Urine Yellow; Glucose Urine UA Negative (Negative); Ketones Urine Negative (Negative); Leukocyte Esterase Urine 1+ (Negative); Nitrite Urine Negative (Negative); Protein Urine Negative (Negative); RBC Urine Automated 0-4 /hpf (0-4); Specific Gravity Urine 1.029 (1.000-1.030); Urobilinogen Urine Negative (Negative); pH Urine 5.5 (4.5-7.5)
--- NOTE | 2019-06-16 01:26 | History & Physical Report ---
Date of Service June 16, 2019 Assessment & Plan (1) Hypoxia: 89yo F PMH anxiety/depression, memory impairment, recurrent UTIs presents with acute on chronic cognitive decline as well as hypoxia. Hypoxia -On review of imaging, labs, clinical exam, congestion noted on XR and CTA likely 2/2 3rd spacing as opposed to infectious cause -3rd spacing could be explained by poor nutritional intake -Albumin and lasix provided x 1 -Safety Instruction Police Officer consulted -Echo ordered to eval for CHF -As pt asymptomatic from pulm standpoint, unsure if hypoxia is chronic vs overmedication related decreased respiratory drive -Holding all home meds at this time -Neuro consult ordered for encephalopathy eval Memory impairment/mood disorder/encephalopathy -Concern is for overmedication--holding all home meds. Would recommend confirming [facility] med list considering drastic differences in meds daughter thought she was taking. -Neuro input as above, recommend neuropsych/psych eval in addition -Urine and blood cultures pending -LDH level in AM -1:1 sitter prn -Cloth mitts applied in ER -xanax TID prn Code: DNR Dispo: med/surg admit DVTP: lovenox (2) Memory problem: (3) Depression: (4) Anxiety: History of Present Illness Chief Complaint: Hypoxia, altered mentation Primary Care Provider: Jhoan Mullen MD Patient is a 89yo F resident of [facility] of anxiety, depression, cognitive impairment/memory impairment, who presents with her daughter with concerns of altered mentation and hypoxia. History provided by the daughter. Daughter states that 2 weeks ago, she felt her mother was acting "off" and asked that she be put on medication for a UTI, which is a common occurrence for her mother. She states that she took the medication as prescribed (unknown which one), but did not see a change in mentation. In the last few days, daughter notes that she has just been "a mess," refusing to eat/drink, get out of bed, groom herself, even refusing to open her eyes. Yazmin has been combative with nursing staff as well. Dgtr requested her urine be sent for analysis, and this was reportedly normal, but she has been taking cipro (a second antibiotic) for the past few days. Because of her being so "off", the daughter requesting she be examined and have her vitals checked. It was found that her oxygen saturation was 84% on room air. The daughter then states she was called back by the facility stating that her oxygen saturation dipped below 80% on RA and that they recommended she be brought to the ER. Pt reports she might have a tiny cough, but not c/o SOB. Never smoker. No h/o respiratory illness/CHF, never required oxygen previously. Of note, daughter reports her memory has been gradually declining for several years, but in the past 6 months was getting to the point of being unsafe, which is when she was moved to [facility]. She has had one eval by neuropsych/psych Dr. Yao. Daughter reports that Yazmin is taking several medications that are not on her official list, including zyprexa, trazodone and xanax, and is also unaware of several medications that are on her current medication list. Daughter is unsure whether she is unaware of correct meds or if the list is not accurate. In the ER, labs were obtained and revealed normal CBC and mildly elevated BUN, dirty UA. Lactate 1.7, Procal 0.75, albumin of 2.0. CXR revealed likely congestive failure findings; CTA was performed and revealed no evidence of PE, but evidence of congestive failure with some pulmonary edema and bilateral effusions. A 12mm RLL nodule was also found. Patient was given an albuterol neb, a dose of cefepime, lasix 20 IV, lorazepam. Allergies Allergy/AdvReac Type Severity Reaction Status Date / Time No Known Allergies Allergy Verified 06/15/19 21:03 Home Medications Home Medications Medication Instructions Recorded Confirmed Type ibuprofen 200 mg PO Q24H PRN 12/17/18 06/15/19 History sennosides [senna] 8.6 mg PO DAILY PRN 12/17/18 06/15/19 History acetaminophen 500 mg tablet 500 mg PO Q4H PRN tab MDD 3 gms 03/05/19 06/15/19 History APAP/24 Hours calcium carbonate 600 mg (1,500 1 tab PO QAM tab 03/11/19 06/15/19 History mg)-vitamin D3 400 unit tablet buspirone 5 mg tablet 5 mg PO TID #90 tab 04/11/19 06/15/19 Rx divalproex 125 mg tablet,delayed 250 mg PO BID #120 tab 04/11/19 06/15/19 Rx release vitamin B complex 1 tab PO DAILY #90 tab 04/11/19 06/15/19 Rx ciprofloxacin HCl 250 mg PO BID 06/15/19 06/15/19 History donepezil 10 mg PO QPM 06/15/19 06/15/19 History escitalopram oxalate 15 mg PO DAILY 06/15/19 06/15/19 History memantine [Namenda] 10 mg PO DAILY 06/15/19 06/15/19 History mirtazapine 15 mg PO HS 06/15/19 06/15/19 History Past Med/Surg History Medical History Acute kidney failure Anorexia (Acute) Anxiety (Acute) Cervical spondylolysis (Acute) Cervicalgia (Acute) Depression (Acute) DJD (degenerative joint disease) of hip Gait disturbance (Acute) Headache (Acute) Hyperlipidemia (Acute) Insomnia (Acute) Joint pain in the shoulder/clavicle region (Acute) Lumbar radiculopathy (Acute) Memory problem (Acute) Microcytic anemia (Acute) Osteopenia (Acute) Posterior pain of right hip (Acute) Right bundle branch block (Acute) Sacral radiculopathy (Acute) Sicca syndrome (Acute) Family History Father Heart disease Mother Heart disease Other Family history non-contributory Social History Preferred Language: Greek Communication Ability: Effective Copy Reader Required: No Beliefs That Will Affect Care: None marital status: / Current Living Situation: Longterm current occupational status: retired Feels Safe at Home: Yes Smoking Status: Never smoker Hx Alcohol Use: No Hx Substance Use: No Review of Systems Review of Systems: Unobtainable due to cognitive status Physical Exam Constitutional: WD/WN, vitals as above + behavioral limitations (Patient difficult to engage for examination. Does not follow commands well) Eyes: Pt refused to open eyes Neck: normal visual inspection Respiratory: normal respiratory effort; no respiratory distress, no labored breathing, no retractions and no cough Auscultation: + diminished lung sounds (Pt would not roll, would not take deep breaths.) Cardiovascular: RRR, no murmur, no edema Gastrointestinal (Abdomen): normal bowel sounds, soft, nontender, no hepatosplenomegaly Musculoskeletal: no cyanosis or clubbing, extremities motor strength 5/5 Skin: no rashes, warm and dry Psychiatric: Orientation: alert; + not oriented x 3 (Would not answer orientation questions) Results & Data Vital Signs (Past 12 Hours) Vital Signs Temp Pulse Pulse Resp BP Pulse Ox 06/16/19 00:30 94 06/16/19 00:00 18 116/81 93 06/15/19 23:00 100 H 101/47 L 93 06/15/19 22:19 85 L 06/15/19 22:00 98.4 F 91 H 122/78 97 06/15/19 21:59 96 H 19 90 06/15/19 21:31 89 22 140/76 93 06/15/19 20:24 93 06/15/19 20:22 114/66 92 06/15/19 20:08 98.4 F 93 H 20 114/66 87 L Laboratory Results 06/16/19 06/15/19 06/15/19 Range/Units 00:30 Unknown 20:49 WBC (4.8-10.8) K/uL RBC (4.2-5.4) M/uL Hgb (12.0-16.0) g/dL Hct (37-47) % MCV (80-100) fL MCH (25-34) pg MCHC (32-36) g/dL RDW Std Deviation (36.4-46.3) fL RDW Coeff of Jacque (11.5-14.5) % Plt Count (130-400) K/uL MPV (7.4-10.4) fL Immature Gran % (Auto) % Neut % (Auto) % Lymph % (Auto) % Sanborn % (Auto) % Eos % (Auto) % Baso % (Auto) % Immature Gran # (Auto) (0.00-0.02) K/uL Neut # (Auto) (1.4-6.5) K/uL Lymph # (Auto) (1.2-3.4) K/uL Sanborn # (Auto) (0.11-0.59) K/uL Eos # (Auto) (0-0.5) K/uL Baso # (Auto) (0-0.2) K/uL PT (9.0-12.0) Seconds INR (0.9-1.1) APTT (21.0-31.0) Seconds PTT Ratio Sodium (136-145) mmol/L Potassium (3.5-5.1) mmol/L Chloride (98-107) mmol/L Carbon Dioxide (21-32) mmol/L Anion Gap (3-11) BUN (7-18) mg/dl Creatinine (0.6-1.2) mg/dl Est Cr Clr Drug Dosing ml/min Est GFR ( Amer) Est GFR (Non-Af Amer) BUN/Creatinine Ratio (10-20) Glucose (70-99) mg/dl Lactate (0.4-2.0) mmol/L Calcium (8.5-10.1) mg/dl Magnesium (1.8-2.4) mg/dl Total Bilirubin (0.2-1) mg/dl AST (15-37) U/L ALT (12-78) U/L Alkaline Phosphatase (45-117) U/L Troponin I (0-0.045) ng/ml NT-Pro-B Natriuret Pep 343 (0-1800) pg/ml Total Protein (6.4-8.2) gm/dl Albumin (3.4-5.0) gm/dl Globulin (2.5-4.0) gm/dl Albumin/Globulin Ratio (0.9-2) Procalcitonin (0-0.5) ng/ml Urine Color Yellow Urine Appearance Clear (Clear) Urine pH 5.5 (4.5-7.5) Ur Specific Courtland 1.029 (1.000-1.030) Urine Protein Negative (Negative) Urine Glucose (UA) Negative (Negative) Urine Ketones Negative (Negative) Urine Blood Negative (Negative) Urine Nitrite Negative (Negative) Urine Bilirubin Negative (Negative) Urine Urobilinogen Negative (Negative) Ur Leukocyte Esterase 1+ H (Negative) Urine WBC (Auto) 10-30 H (0-5) /hpf Urine RBC (Auto) 0-4 (0-4) /hpf U Hyaline Cast (Auto) 1-5 (0-5) /lpf U Epithel Cells (Auto) 5-10 H (0-5) /lpf Urine Bacteria (Auto) Negative (Negative) Valproic Acid (50-100) mcg/ml Influenza Type A (PCR) Neg for Influ A (Neg) Influenza Type B (PCR) Neg for Influ B (Neg) 06/15/19 06/15/19 06/15/19 Range/Units 20:49 20:49 20:49 WBC (4.8-10.8) K/uL RBC (4.2-5.4) M/uL Hgb (12.0-16.0) g/dL Hct (37-47) % MCV (80-100) fL MCH (25-34) pg MCHC (32-36) g/dL RDW Std Deviation (36.4-46.3) fL RDW Coeff of Jacque (11.5-14.5) % Plt Count (130-400) K/uL MPV (7.4-10.4) fL Immature Gran % (Auto) % Neut % (Auto) % Lymph % (Auto) % Sanborn % (Auto) % Eos % (Auto) % Baso % (Auto) % Immature Gran # (Auto) (0.00-0.02) K/uL Neut # (Auto) (1.4-6.5) K/uL Lymph # (Auto) (1.2-3.4) K/uL Sanborn # (Auto) (0.11-0.59) K/uL Eos # (Auto) (0-0.5) K/uL Baso # (Auto) (0-0.2) K/uL PT (9.0-12.0) Seconds INR (0.9-1.1) APTT (21.0-31.0) Seconds PTT Ratio Sodium 138 (136-145) mmol/L Potassium 3.7 (3.5-5.1) mmol/L Chloride 103 (98-107) mmol/L Carbon Dioxide 27 (21-32) mmol/L Anion Gap 8.0 (3-11) BUN 18 (7-18) mg/dl Creatinine 0.77 (0.6-1.2) mg/dl Est Cr Clr Drug Dosing 44.4 ml/min Est GFR ( Amer) 80.5 Est GFR (Non-Af Amer) 69.4 BUN/Creatinine Ratio 23.5 H (10-20) Glucose 88 (70-99) mg/dl Lactate 1.7 (0.4-2.0) mmol/L Calcium 9.4 (8.5-10.1) mg/dl Magnesium 2.0 (1.8-2.4) mg/dl Total Bilirubin 0.2 (0.2-1) mg/dl AST 18 (15-37) U/L ALT 23 (12-78) U/L Alkaline Phosphatase 68 (45-117) U/L Troponin I < 0.015 (0-0.045) ng/ml NT-Pro-B Natriuret Pep (0-1800) pg/ml Total Protein 6.3 L (6.4-8.2) gm/dl Albumin 2.0 L (3.4-5.0) gm/dl Globulin 4.3 H (2.5-4.0) gm/dl Albumin/Globulin Ratio 0.5 L (0.9-2) Procalcitonin (0-0.5) ng/ml Urine Color Urine Appearance (Clear) Urine pH (4.5-7.5) Ur Specific Court[place] (1.000-1.030) Urine Protein (Negative) Urine Glucose (UA) (Negative) Urine Ketones (Negative) Urine Blood (Negative) Urine Nitrite (Negative) Urine Bilirubin (Negative) Urine Urobilinogen (Negative) Ur Leukocyte Esterase (Negative) Urine WBC (Auto) (0-5) /hpf Urine RBC (Auto) (0-4) /hpf U Hyaline Cast (Auto) (0-5) /lpf U Epithel Cells (Auto) (0-5) /lpf Urine Bacteria (Auto) (Negative) Valproic Acid 42 L (50-100) mcg/ml Influenza Type A (PCR) (Neg) Influenza Type B (PCR) (Neg) 06/15/19 06/15/19 06/15/19 Range/Units 20:49 20:48 20:48 WBC 9.77 (4.8-10.8) K/uL RBC 4.09 L (4.2-5.4) M/uL Hgb 12.4 (12.0-16.0) g/dL Hct 37.9 (37-47) % MCV 92.7 (80-100) fL MCH 30.3 (25-34) pg MCHC 32.7 (32-36) g/dL RDW Std Deviation 47.2 H (36.4-46.3) fL RDW Coeff of Jacque 13.9 (11.5-14.5) % Plt Count 283 (130-400) K/uL MPV 9.4 (7.4-10.4) fL Immature Gran % (Auto) 5.6 % Neut % (Auto) 68.7 % Lymph % (Auto) 12.6 % Sanborn % (Auto) 8.7 % Eos % (Auto) 4.3 % Baso % (Auto) 0.1 % Immature Gran # (Auto) 0.55 H (0.00-0.02) K/uL Neut # (Auto) 6.71 H (1.4-6.5) K/uL Lymph # (Auto) 1.23 (1.2-3.4) K/uL Sanborn # (Auto) 0.85 H (0.11-0.59) K/uL Eos # (Auto) 0.42 (0-0.5) K/uL Baso # (Auto) 0.01 (0-0.2) K/uL PT 11.6 (9.0-12.0) Seconds INR 1.1 (0.9-1.1) APTT 24.5 (21.0-31.0) Seconds PTT Ratio 0.9 Sodium (136-145) mmol/L Potassium (3.5-5.1) mmol/L Chloride (98-107) mmol/L Carbon Dioxide (21-32) mmol/L Anion Gap (3-11) BUN (7-18) mg/dl Creatinine (0.6-1.2) mg/dl Est Cr Clr Drug Dosing ml/min Est GFR ( Amer) Est GFR (Non-Af Amer) BUN/Creatinine Ratio (10-20) Glucose (70-99) mg/dl Lactate (0.4-2.0) mmol/L Calcium (8.5-10.1) mg/dl Magnesium (1.8-2.4) mg/dl Total Bilirubin (0.2-1) mg/dl AST (15-37) U/L ALT (12-78) U/L Alkaline Phosphatase (45-117) U/L Troponin I (0-0.045) ng/ml NT-Pro-B Natriuret Pep (0-1800) pg/ml Total Protein (6.4-8.2) gm/dl Albumin (3.4-5.0) gm/dl Globulin (2.5-4.0) gm/dl Albumin/Globulin Ratio (0.9-2) Procalcitonin 0.75 H (0-0.5) ng/ml Urine Color Urine Appearance (Clear) Urine pH (4.5-7.5) Ur Specific [place] (1.000-1.030) Urine Protein (Negative) Urine Glucose (UA) (Negative) Urine Ketones (Negative) Urine Blood (Negative) Urine Nitrite (Negative) Urine Bilirubin (Negative) Urine Urobilinogen (Negative) Ur Leukocyte Esterase (Negative) Urine WBC (Auto) (0-5) /hpf Urine RBC (Auto) (0-4) /hpf U Hyaline Cast (Auto) (0-5) /lpf U Epithel Cells (Auto) (0-5) /lpf Urine Bacteria (Auto) (Negative) Valproic Acid (50-100) mcg/ml Influenza Type A (PCR) (Neg) Influenza Type B (PCR) (Neg) Diagnostic Findings XR chest 1V portable CLINICAL HISTORY: Sepsis COMPARISON STUDY: 03/07/2017 FINDINGS: The heart is the upper limits of normal in size. There is a retrocardiac opacity consistent with a hiatal hernia. There is diffuse elevation of interstitium. While likely secondary to congestive failure, a bilateral interstitial inflammatory processes could appear similar. Clinical and radiographic follow-up is recommended. There is no lobar consolidation. There are no large pleural effusions[ IMPRESSION: 1. Diffuse elevation of the interstitium. While likely secondary to congestive failure, a bilateral interstitial inflammatory/infectious process could appear similar. Clinical and radiographic follow-up is recommended. CT ANGIOGRAM OF THE CHEST CLINICAL HISTORY: Shortness of breath. Hypoxia. Suspected pulmonary embolism COMPARISON STUDY: Chest x-ray dated 06/15/2019 TECHNIQUE: Following the IV administration of 76 mL of Optiray-320, CT angiogram of the thorax was performed from the thoracic inlet to the lung bases utilizing the pulmonary embolus protocol. Images are reviewed in the axial, sagittal, and coronal planes. IV contrast was administered without complication. MIP imaging was performed. A dose lowering technique was utilized adhering to the principles of ALARA. CT DOSE: 339.10 mGy.cm FINDINGS: There is a multinodular thyroid gland. Current recommendations indicate no necessity for additional follow-up given the age of the patient and size of the nodules. There are mildly enlarged right hilar lymph nodes. Left hilar lymph nodes are the upper limits of normal in size. There is a mildly enlarged AP window lymph node. There is no pathologic axillary lymphadenopathy. There is a large hiatal hernia. There is a 24 mm hepatic cyst versus adrenal adenoma. There was no evidence of thoracic aortic dilatation. There were no pulmonary artery filling defects to indicate acute pulmonary embolism. There are small bilateral pleural effusions There are dependent pulmonary airspace opacities consistent with atelectasis. There are bilateral groundglass opacities consistent with pulmonary edema. There is mild septal edema. Evaluation the lung parenchyma is limited due to respiratory motion artifact. There is a 12 mm nodule at the right lung base. A 3 month follow-up CT scan is recommended. IMPRESSION: 1. No evidence of acute pulmonary embolism 2. CT evidence of congestive failure with pulmonary edema and small bilateral pleural effusions 3. Mild adenopathy 4. Nonspecific 12 mm right lower lobe nodule. A 3 month follow-up CT scan is recommended 5. Large hiatal hernia Code Status & VTE Plan Code Status DNR VTE Prophylaxis Plan VTE Prophylaxis will be ordered: Yes Supervising Physician Co-Signing Physician Notes Attending addendum: I have physically seen this patient, have supervised the medical residents activities, and agree with the H&P unless as otherwise noted. Assessment and Plan: Worsening memory loss/increasing agitation- Differential includes: Worsening underlying dementia, hypoxic encephalopathy, medication interaction, medicamentosa, CVA, other infection and others. Holding medications until verify med list. Daughter ports patient being on medication such as Zyprexa and Xanax, which not presently on her medication list. Like to order MRI of brain, to further assess for possible CVA, but will need to have patient less agitated to sit for the MRI. Order one-on-one sitter. Continue soft restraints via cloth mitts due to patient pulling at IVs. Either Xanax 3 times daily as needed oral Lorazepam IV as needed for agitation. Consult neurology. Hypoxia- Pulse ox report was reported to be in the mid 70s to low 80s. Did improve with application of nasal cannula oxygen in the ED. We will give a trial of albumin with Lasix to address fluid overload issues, and adjust further dosing based on response. The patient will be admitted to telemetry for serial cardiac enzymes, serial EKG's, cardiac rhythm monitoring and a 2-D echocardiogram with Dopplers. Remainder of orders and notations as noted. Resident Activity Tracking Resident Involvement: Resident Care Provided Care Provided: Adult Hospital Medicine
[2019-06-16] MEDS ORDERED: ALUMINUM/MAGNESIUM SUSP 30 ML UDC PO PRN (01:40)
[2019-06-16] MEDS ORDERED: ONDANSETRON INJ 2 MG/ML 2 ML VIAL IV PRN (01:40)
[2019-06-16] MEDS ORDERED: MAGNESIUM HYDROXIDE SUSP 30 ML UDC PO PRN (01:40)
[2019-06-16] MEDS ORDERED: POLYETHYLENE (MIRALAX) 17 GM PACK PO PRN (01:40)
[2019-06-16] MEDS ORDERED: ALPRAZolam 0.5 MG TABLET PO PRN (01:59)
[2019-06-16] MEDS ORDERED: ALBUMIN 25% 50 ML with FUROSEMIDE 40 MG IV ONE (02:30)
--- NOTE | 2019-06-16 04:32 | Billing Data ---
Coding Level of Care Code 47339 Initial Inpt Care Lvl 3
[2019-06-16 06:58] LABS: Hematocrit (blood only) 36.6 % (37-47); Hemoglobin 12.1 g/dL (12.0-16.0); Mean Corpuscular Hemoglobin 30.3 pg (25-34); Mean Corpuscular Hgb Conc 33.1 g/dL (32-36); Mean Corpuscular Volume 91.7 fL (80-100); Mean Platelet Volume 9.3 fL (7.4-10.4); Platelet Count 260 K/uL (130-400); RDW Coefficient of Variation 13.9 % (11.5-14.5); RDW Standard Deviation 46.1 fL (36.4-46.3); Red Blood Count 3.99 M/uL (4.2-5.4); White Blood Count 7.63 K/uL (4.8-10.8)
[2019-06-16 07:22] LABS: Basophils # (auto) 0.02 K/uL (0-0.2); Basophils % (auto) 0.3 %; Eosinophils # (auto) 0.32 K/uL (0-0.5); Eosinophils % (auto) 4.2 %; Immature Granulocytes # (auto) 0.44 K/uL (0.00-0.02); Immature Granulocytes % (auto) 5.8 %; Lymphocytes # (auto) 0.86 K/uL (1.2-3.4); Lymphocytes % (auto) 11.3 %; Monocytes # (auto) 0.79 K/uL (0.11-0.59); Monocytes % (auto) 10.4 %
[2019-06-16 07:42] LABS: Albumin Level 2.2 gm/dl (3.4-5.0); BUN Creatinine Ratio 18.4 (10-20); Calcium 8.5 mg/dl (8.5-10.1); Creatinine Clr Calc Pharmacy 37.1 ml/min; Est GFR (African American) 64.9; Potassium 3.3 mmol/L (3.5-5.1)
[2019-06-16 07:44] LABS: Albumin Globulin Ratio 0.6 (0.9-2); Bilirubin,Total 0.3 mg/dl (0.2-1); Globulin 3.9 gm/dl (2.5-4.0); Total Protein 6.1 gm/dl (6.4-8.2)
[2019-06-16] MEDS: ENOXAPARIN INJ 40 MG/0.4 ML SYR SQ SCH (08:14)
--- NOTE | 2019-06-16 08:35 | Hospitalist Progress Note ---
Date of Service June 16, 2019 Assessment & Plan (1) Hypoxia: 89yo F PMH anxiety/depression, memory impairment, recurrent UTIs presents with acute on chronic cognitive decline as well as hypoxia. 1) Encephalopathy vs. Iatrogenic delirium vs. Dementia decline - concern for overmedication after patient was deconditioning and admitted to psych facility for 3 weeks and started on a multitude of psychiatric medications - holding all home meds at this time to allow for washout and assessment of baseline functional and mental status - less likely to be infectious etiology - UA showed 1+ nitrites, otherwise unconcerning for UTI - CXR unimpressive for PNA - afebrile - 1:1 sitter for safety and agitation - mittens for agitation precautions - Haldol 0.5 mg Q4 PRN for agitation with call to physician if administering 2) Hypoxia -On review of imaging, labs, clinical exam, congestion noted on XR and CTA likely 2/2 3rd spacing as opposed to infectious cause -3rd spacing could be explained by poor nutritional intake -Albumin and lasix provided x 1 -Pan Washer consulted -Echo for CHF eval: limited study showing hyperdynamic left ventricle, no valvular disease. -As pt asymptomatic from pulm standpoint, unsure if hypoxia is chronic vs overmedication related decreased respiratory drive -O2 sat 93 on 3L NC Code: DNR Dispo: med/surg admit DVTP: lovenox (2) Memory problem: (3) Depression: (4) Anxiety: Supervising Physician Co-Signing Physician Notes Attending attestation Pt seen and examined in concert with Dr. Oconnell. In agreement with the documented findings as noted in the resident documentation with any exceptions or additions as noted here. Daughter at bedside providing the lion share of patient history. Reports chronic behavioral issues with patient, usually in the vein of increased agitation and lack of cooperation, which is more longstanding. Progressively worsening difficulties with mentation focused around short term memory and attention (resulting in transition to supervised living). I am suspicious that a combination of these two behaviors resulted in her psychiatric admission. The resultant polypharmacy and respiratory depression is evident from the impact of 0.5mg of Xanax - protracted sleepiness and oriented x 0 on evaluation. On arou roberta, patient denies pain or any complaints. On examination, S1/S2 nl RRR no MCG. CTAB. Abd NT/ND BS+ve Delirium with underlying dementia, suspected toxic encephalopathy from psychiatric medications v. malnutrition - concerning for polypharmacy vs. underlying infectious process v. atypical presentation of neurologic process or psychiatric process - D/C alprazolam, encourage use of 1:1. Order for haldol with contact MD only. Close monitoring of O2 saturation, respiratory status and behaviors. Consider evaluation by psychiatry v. neurology based on symptomology after pharmacology has filtered out. Explained proposed course, symptoms and monitoring in detail to daughter and attempted to do so with patient. Malnutrition - dietary consultation once mentation improves Only call by Yazmin, not ma'am or dear. Time in the room approximately 1:00 PM, time out approximately 1:40 PMgreater than 30 minutes [id number]. Subjective 89 yo F with Dementia, Hypotension, insomnia, HLD, depression, DJD who was admitted from [facility] for Hypoxia and declining mentation. ED Course: CTA chest negative for PE, infectious etiology. + Pulmonary Edema, i ncidental node on CT. This AM still acutely disoriented to place and time, No complaints of pain, loss of appetite. No issues with bowel or bladder. Is able to follow simple commands. Review of Systems Review of Systems: Unobtainable due to cognitive status Physical Exam Constitutional: + altered mental status; no acute distress Cardiovascular: Rate/Rhythm: regular rate Heart Sounds: + murmur (systolic ejection at R 2nd intercostal) Vessels: normal carotid upstroke Extremities: no calf tenderness Neurologic: does not follow commands well Psychiatric: Orientation: cooperative; + not alert and + not oriented x 3 Results & Data Vital Signs (Past 12 Hours) Vital Signs Temp Pulse Pulse Resp BP BP Pulse Ox 06/16/19 08:16 36.8 C 92 H 20 115/73 93 06/16/19 01:48 37.7 C H 96 H 14 132/88 94 06/16/19 01:01 120/68 94 06/16/19 00:30 94 06/16/19 00:00 18 116/81 93 06/15/19 23:00 100 H 101/47 L 93 06/15/19 22:19 85 L 06/15/19 22:00 36.9 C 91 H 122/78 97 06/15/19 21:59 96 H 19 90 06/15/19 21:31 89 22 140/76 93 Laboratory Results WBC 7.63 K/uL (4.8-10.8) 06/16/19 06:37 RBC 3.99 M/uL (4.2-5.4) L 06/16/19 06:37 Hgb 12.1 g/dL (12.0-16.0) 06/16/19 06:37 Hct 36.6 % (37-47) L 06/16/19 06:37 MCV 91.7 fL (80-100) 06/16/19 06:37 MCH 30.3 pg (25-34) 06/16/19 06:37 MCHC 33.1 g/dL (32-36) 06/16/19 06:37 RDW Std Deviation 46.1 fL (36.4-46.3) 06/16/19 06:37 RDW Coeff of Jacque 13.9 % (11.5-14.5) 06/16/19 06:37 Plt Count 260 K/uL (130-400) 06/16/19 06:37 MPV 9.3 fL (7.4-10.4) 06/16/19 06:37 Immature Gran % (Auto) 5.8 % 06/16/19 06:37 Neut % (Auto) 68.0 % 06/16/19 06:37 Lymph % (Auto) 11.3 % 06/16/19 06:37 [place] % (Auto) 10.4 % 06/16/19 06:37 Eos % (Auto) 4.2 % 06/16/19 06:37 Baso % (Auto) 0.3 % 06/16/19 06:37 Immature Gran # (Auto) 0.44 K/uL (0.00-0.02) H 06/16/19 06:37 Neut # (Auto) 5.20 K/uL (1.4-6.5) 06/16/19 06:37 Lymph # (Auto) 0.86 K/uL (1.2-3.4) L 06/16/19 06:37 [place] # (Auto) 0.79 K/uL (0.11-0.59) H 06/16/19 06:37 Eos # (Auto) 0.32 K/uL (0-0.5) 06/16/19 06:37 Baso # (Auto) 0.02 K/uL (0-0.2) 06/16/19 06:37 PT 11.6 Seconds (9.0-12.0) 06/15/19 20:48 INR 1.1 (0.9-1.1) 06/15/19 20:48 APTT 24.5 Seconds (21.0-31.0) 06/15/19 20:48 PTT Ratio 0.9 06/15/19 20:48 Sodium 139 mmol/L (136-145) 06/16/19 06:37 Potassium 3.3 mmol/L (3.5-5.1) L 06/16/19 06:37 Chloride 103 mmol/L (98-107) 06/16/19 06:37 Carbon Dioxide 31 mmol/L (21-32) 06/16/19 06:37 Anion Gap 5.0 (3-11) 06/16/19 06:37 BUN 17 mg/dl (7-18) 06/16/19 06:37 Creatinine 0.92 mg/dl (0.6-1.2) 06/16/19 06:37 Est Cr Clr Drug Dosing 37.1 ml/min 06/16/19 06:37 Est GFR ( Amer) 64.9 06/16/19 06:37 Est GFR (Non-Af Amer) 56.0 06/16/19 06:37 BUN/Creatinine Ratio 18.4 (10-20) 06/16/19 06:37 Glucose 92 mg/dl (70-99) 06/16/19 06:37 Lactate 1.7 mmol/L (0.4-2.0) 06/15/19 20:49 Calcium 8.5 mg/dl (8.5-10.1) 06/16/19 06:37 Magnesium 2.0 mg/dl (1.8-2.4) 06/15/19 20:49 Total Bilirubin 0.3 mg/dl (0.2-1) 06/16/19 06:37 AST 12 U/L (15-37) L 06/16/19 06:37 ALT 19 U/L (12-78) 06/16/19 06:37 Alkaline Phosphatase 61 U/L (45-117) 06/16/19 06:37 Lactate Dehydrogenase 130 U/L (84-246) 06/16/19 06:37 Troponin I < 0.015 ng/ml (0-0.045) 06/15/19 20:49 NT-Pro-B Natriuret Pep 343 pg/ml (0-1800) 06/15/19 20:49 Total Protein 6.1 gm/dl (6.4-8.2) L 06/16/19 06:37 Albumin 2.2 gm/dl (3.4-5.0) L 06/16/19 06:37 Globulin 3.9 gm/dl (2.5-4.0) 06/16/19 06:37 Albumin/Globulin Ratio 0.6 (0.9-2) L 06/16/19 06:37 Procalcitonin 0.75 ng/ml (0-0.5) H 06/15/19 20:48 Urine Color Yellow 06/16/19 00:30 Urine Appearance Clear (Clear) 06/16/19 00:30 Urine pH 5.5 (4.5-7.5) 06/16/19 00:30 Ur Specific [place] 1.029 (1.000-1.030) 06/16/19 00:30 Urine Protein Negative (Negative) 06/16/19 00:30 Urine Glucose (UA) Negative (Negative) 06/16/19 00:30 Urine Ketones Negative (Negative) 06/16/19 00:30 Urine Blood Negative (Negative) 06/16/19 00:30 Urine Nitrite Negative (Negative) 06/16/19 00:30 Urine Bilirubin Negative (Negative) 06/16/19 00:30 Urine Urobilinogen Negative (Negative) 06/16/19 00:30 Ur Leukocyte Esterase 1+ (Negative) H 06/16/19 00:30 Urine WBC (Auto) 10-30 /hpf (0-5) H 06/16/19 00:30 Urine RBC (Auto) 0-4 /hpf (0-4) 06/16/19 00:30 U Hyaline Cast (Auto) 1-5 /lpf (0-5) 06/16/19 00:30 U Epithel Cells (Auto) 5-10 /lpf (0-5) H 06/16/19 00:30 Urine Bacteria (Auto) Negative (Negative) 06/16/19 00:30 Nasal Screen MRSA (PCR) Negative (Negative) 06/16/19 02:30 Valproic Acid 42 mcg/ml (50-100) L 06/15/19 20:49 Influenza Type A (PCR) Neg for Influ A (Neg) 06/15/19 Unknown Influenza Type B (PCR) Neg for Influ B (Neg) 06/15/19 Unknown Resident Activity Tracking Resident Involvement: Resident Care Provided Care Provided: Adult Hospital Medicine
[2019-06-16] MEDS ORDERED: POTASSIUM CHLORIDE PWD 20 MEQ PACK PO ONE (08:52)
[2019-06-16] MEDS ORDERED: HALOPERIDOL LACTATE 5 MG/ML 1 ML VIAL IM PRN (15:48)
[2019-06-17] MEDS: ENOXAPARIN INJ 40 MG/0.4 ML SYR SQ SCH (09:30)
--- NOTE | 2019-06-17 13:01 | Hospitalist Progress Note ---
Date of Service June 17, 2019 Assessment & Plan (1) Hypoxia: 89yo F PMH anxiety/depression, memory impairment, recurrent UTIs presents with acute on chronic cognitive decline as well as hypoxia. 1) Encephalopathy vs. Iatrogenic delirium vs. Dementia decline - concern for overmedication after patient was deconditioning and admitted to psych facility for 3 weeks and started on a multitude of psychiatric medications - holding all home meds at this time to allow for washout and assessment of baseline functional and mental status - less likely to be infectious etiology (afebrile, clean UA, no pulm source) - 1:1 sitter for safety and agitation - mittens for agitation precautions - Haldol 0.5 mg Q4 PRN for agitation with call to physician if administering 2) Hypoxia - relatively improved s/p albumin and lasix x1 during hospital stay. Saturating 91% on room air, improved from requiring NC. - likely to be due to third spacing of fluid into lungs 2/2 poor nutritional intake -Security Services Specialist consulted -Echo for CHF eval: limited study showing hyperdynamic left ventricle, no valvular disease. -As pt asymptomatic from pulm standpoint, unsure if hypoxia is chronic vs overmedication related decreased respiratory drive Code: DNR Dispo: med/surg admit. Will need to discuss with daughter if patient is to return home with her or go to SNF. DVTP: lovenox (2) Memory problem: (3) Depression: (4) Anxiety: Supervising Physician Co-Signing Physician Notes Attending attestation Pt seen and examined in concert with Dr. Oconnell. In agreement with the documented findings as noted in the resident documentation with any exceptions or additions as noted here. Daughter again at bedside. Returning to 'obstreperous' baseline, though still more waxing/waning than normal. More evident decreased short term memory issues (does not remember me from this AM). Refusing lab studies, evaluations but tolerating increased POI (and asking for roast beef after 10 years of vegetarianism). Denies any considerable complaint at present, though is having increased nonproductive cough and O2 requirement (none at baseline) On examination, S1/S2 nl RRR no MCG. scattered wheeze and bibasilar crackles. Abd NT/ND BS+ve Cough - concerning for protein related fluid extravasation based on sx - lasix dose, repeat XR in AM, monitor O2 requirement, avoid hyperhydration Delirium with underlying dementia, suspected toxic encephalopathy from psychiatric medications v. malnutrition - improved off alprazolam, with 1:1. Haldol PRN with contact MD only. Close monitoring of O2 saturation, respiratory status and behaviors. After extensive discussion, patient in agreement w/ psychiatric evaluation for moderation of medication regimen. Malnutrition - dietary on board and improved intake Only call by Yazmin, not ma'viral or dear. Time in the room approximately 3:00 PM, time out approximately 3:40 PMgreater than 30 minutes [id number]. Subjective Fast asleep and unarousable this AM. ROS limited by mentation. Review of Systems Review of Systems: Unobtainable due to cognitive status Physical Exam Constitutional: + altered mental status; no acute distress Cardiovascular: Rate/Rhythm: regular rate Heart Sounds: + murmur (systolic ejection at R 2nd intercostal) Vessels: normal carotid upstroke Results & Data Vital Signs (Past 12 Hours) Vital Signs Temp Pulse Resp BP Pulse Ox 06/17/19 08:00 36.6 C 82 18 99/64 L 91 Resident Activity Tracking Resident Involvement: Resident Care Provided Care Provided: Adult Hospital Medicine
[2019-06-17] MEDS ORDERED: FUROSEMIDE 20 MG in SYRINGE 0 ML IV ONE (16:00)
[2019-06-17] MEDS ORDERED: POTASSIUM CHLORIDE 20 MEQ TABCR PO ONE (16:00)
[2019-06-17] MEDS: ACETAMINOPHEN 325 MG TAB PO PRN (18:15)
[2019-06-17 18:18] LABS: Hematocrit (blood only) 41.6 % (37-47); Hemoglobin 13.6 g/dL (12.0-16.0); Mean Corpuscular Hemoglobin 30.8 pg (25-34); Mean Corpuscular Hgb Conc 32.7 g/dL (32-36); Mean Corpuscular Volume 94.1 fL (80-100); Mean Platelet Volume 9.1 fL (7.4-10.4); Platelet Count 343 K/uL (130-400); RDW Coefficient of Variation 13.9 % (11.5-14.5); RDW Standard Deviation 47.9 fL (36.4-46.3); Red Blood Count 4.42 M/uL (4.2-5.4); White Blood Count 9.02 K/uL (4.8-10.8)
[2019-06-17 18:37] LABS: Basophils # (auto) 0.04 K/uL (0-0.2); Basophils % (auto) 0.4 %; Eosinophils # (auto) 0.28 K/uL (0-0.5); Eosinophils % (auto) 3.1 %; Immature Granulocytes # (auto) 0.61 K/uL (0.00-0.02); Immature Granulocytes % (auto) 6.8 %; Lymphocytes # (auto) 1.02 K/uL (1.2-3.4); Lymphocytes % (auto) 11.3 %; Monocytes # (auto) 1.06 K/uL (0.11-0.59); Monocytes % (auto) 11.8 %; Neutrophils # (auto) 6.01 K/uL (1.4-6.5); Neutrophils % (auto) 66.6 %
[2019-06-17 18:38] LABS: Albumin Globulin Ratio 0.5 (0.9-2); Albumin Level 2.3 gm/dl (3.4-5.0); BUN Creatinine Ratio 24.6 (10-20); Bilirubin,Total 0.2 mg/dl (0.2-1); Calcium 8.9 mg/dl (8.5-10.1); Creatinine Clr Calc Pharmacy 33.8 ml/min; Est GFR (African American) 60.9; Est GFR (Non-African American) 52.5; Globulin 4.4 gm/dl (2.5-4.0); Total Protein 6.7 gm/dl (6.4-8.2)
[2019-06-17 18:39] LABS: Potassium 4.2 mmol/L (3.5-5.1)
--- NOTE | 2019-06-17 20:00 | XRay Report ---
XR chest 1V portable HISTORY: 89 years-old Female concern for aspiration pneumo acute shortness of breath COMPARISON: Chest radiograph and CTA chest 06/15/2018 TECHNIQUE: Portable AP view of the chest FINDINGS: Large hiatal hernia. Cardiomediastinal and hilar silhouettes are unchanged. Pulmonary vascular conges tion with unchanged mild interstitial coarsening. Trace pleural effusions. No pneumothorax. Mild left basilar opacities suggest probable atelectasis. No lobar airspace consolidation typical for pneumoni a. Degenerative changes of the shoulders and spine. IMPRESSION: 1. Pulmonary vascular congestion with interstitial coarsening suggestive of mild pulmonary edema. 2. Trace pleural effusions. 3. Large hiatal hernia. The above report was generated using voice recognition software. It may contain grammatical, syntax o r spelling errors. Electronically signed by: Jim Sarmiento M.D. 06/17/2019 7:57 PM
[2019-06-17] MEDS ORDERED: VANCOMYCIN CONSULT ACTIVE PRN (20:34)
[2019-06-17] MEDS ORDERED: VANCOMYCIN HCL 1,500 MG in SODIUM CHLORIDE 0.9% 500 ML IV ONE (21:30)
[2019-06-17] MEDS: AMPICILLIN/SULBACTAM SOD 3,000 MG in 0.9 % SODIUM CHLORIDE 100 ML IV SCH (22:12)
[2019-06-18] MEDS: AMPICILLIN/SULBACTAM SOD 3,000 MG in 0.9 % SODIUM CHLORIDE 100 ML IV SCH ×4 (03:12→21:12)
[2019-06-18 06:47] LABS: Hematocrit (blood only) 38.9 % (37-47); Hemoglobin 12.6 g/dL (12.0-16.0); Mean Corpuscular Hemoglobin 30.1 pg (25-34); Mean Corpuscular Hgb Conc 32.4 g/dL (32-36); Mean Corpuscular Volume 93.1 fL (80-100); Mean Platelet Volume 9.3 fL (7.4-10.4); Platelet Count 285 K/uL (130-400); RDW Standard Deviation 47.5 fL (36.4-46.3); Red Blood Count 4.18 M/uL (4.2-5.4); White Blood Count 7.41 K/uL (4.8-10.8)
[2019-06-18 07:22] LABS: BUN Creatinine Ratio 39.2 (10-20); Calcium 8.9 mg/dl (8.5-10.1); Creatinine Clr Calc Pharmacy 48.9 ml/min; Est GFR (African American) 91.6
[2019-06-18 07:27] LABS: Albumin Globulin Ratio 0.5 (0.9-2); Bilirubin,Total 0.3 mg/dl (0.2-1); Globulin 3.8 gm/dl (2.5-4.0); Total Protein 5.8 gm/dl (6.4-8.2)
[2019-06-18 07:31] LABS: Basophils # (auto) 0.04 K/uL (0-0.2); Basophils % (auto) 0.5 %; Eosinophils # (auto) 0.24 K/uL (0-0.5); Eosinophils % (auto) 3.2 %; Immature Granulocytes # (auto) 0.58 K/uL (0.00-0.02); Immature Granulocytes % (auto) 7.8 %; Lymphocytes # (auto) 0.69 K/uL (1.2-3.4); Lymphocytes % (auto) 9.3 %; Monocytes # (auto) 0.72 K/uL (0.11-0.59); Monocytes % (auto) 9.7 %; Neutrophils # (auto) 5.14 K/uL (1.4-6.5); Neutrophils % (auto) 69.5 %
--- NOTE | 2019-06-18 09:05 | Hospitalist Progress Note ---
Date of Service June 18, 2019 Assessment & Plan (1) Hypoxia: 89yo F PMH anxiety/depression, memory impairment, recurrent UTIs presents with acute on chronic cognitive decline as well as hypoxia. 1) Fever of unknown origin - febrile last night with hypotension and tachycardia - patient has been improving in cognitive function - CXR and CTA from 06/15 show pleural effusions but no evidence of lobar pneumonia - Unasyn started for empiric tx of aspiration pneumonia - normal lactate, procalcitonin, WBC make infection less likely - MRSA nares negative; dc'd zosyn - continue to monitor vitals and oxygen saturations. F/U blood cultures 2) Polypharmacy delirium - much improved with removal of home medications - patient now communicating and conversable though terse and somewhat agitate - psychiatry consulted for recommendations psychiatric medication control in an elderly patient - MRI negative for acute change 3) HFpEF (ef 70%) - Echo for CHF eval: limited study showing hyperdynamic left ventricle, no v alvular disease. - third spacing of fluid on CTA lungs 2/2 low albumin and poor nutritional intake - lasix 20mg IV to offload fluid; could be source of new onset hypoxia and oxygen requirement - patient is not on any cardiac HF meds - dietary consulted Code: DNR Dispo: med/surg DVT Px: lovenox (2) Memory problem: (3) Depression: (4) Anxiety: Supervising Physician Co-Signing Physician Notes Attending attestation Pt seen and examined in concert with Dr. Oconnell. In agreement with the documented findings as noted in the resident documentation with any exceptions or additions as noted here. Daughter again at bedside. Continued improvement in sedation and focus, though memory and attention is still poor at baseline. Intermittently refusing evaluations but tolerating POI incl' boost. Denies complaint at present. On examination, S1/S2 nl RRR no MCG. scattered wheeze and bibasilar crackles with persistent coughing in room. Abd NT/ND BS+ve Pleural effusion/edema - concerning for protein related fluid extravasation based on sx - continue furosemide, monitor O2 requirement, avoid hyperhydration. I/Os and weights Delirium with underlying dementia, suspected toxic encephalopathy from psychiatric medications v. malnutrition - improving. 1:1. Haldol PRN with contact MD only. f/u psychiatric consultation Malnutrition - dietary on board and improved intake Only call by Yazmin, not kelsie'viral or dear. Subjective Awake and answering questions this morning. Denies any chest pain, shortness of breath, abdominal or calf pain at rest. Denies headache. Attests that light is hurting her eyes, denies worsening of pain with sound. Review of Systems Constitutional: no fever, no chills, no body aches and no fatigue Respiratory: no dyspnea and no wheezing Cardiovascular: no chest pain and no dyspnea Gastrointestinal: no abdominal pain, no nausea, no vomiting, no constipation and no diarrhea/loose stools Neurologic: no headache(s) + pain with opening eyes in the light Physical Exam Constitutional: laying comfortably in bed with eyes closed Eyes: pupillary reflex intact, patient hesitant to open eyes past a few millimeters Respiratory: normal respiratory effort and + cough; no respiratory distress and no labored breathing mild rhonchorous breath sounds in anterior lungs bilaterally. Patient refused to sit up or roll to one side to allow auscultation of posterior lungs Cardiovascular: Rate/Rhythm: regular rate and regular rhythm Results & Data Vital Signs (Past 12 Hours) Vital Signs Temp 06/18/19 00:00 36.6 C 06/18/19 06/18/19 06/18/19 Range/Units 08:32 06:22 06:22 WBC 7.41 (4.8-10.8) K/uL RBC 4.18 L (4.2-5.4) M/uL Hgb 12.6 (12.0-16.0) g/dL Hct 38.9 (37-47) % MCV 93.1 (80-100) fL MCH 30.1 (25-34) pg MCHC 32.4 (32-36) g/dL RDW Std Deviation 47.5 H (36.4-46.3) fL RDW Coeff of Jacuqe 14.0 (11.5-14.5) % Plt Count 285 (130-400) K/uL MPV 9.3 (7.4-10.4) fL Immature Gran % (Auto) 7.8 % Neut % (Auto) 69.5 % Lymph % (Auto) 9.3 % [place] % (Auto) 9.7 % Eos % (Auto) 3.2 % Baso % (Auto) 0.5 % Immature Gran # (Auto) 0.58 H (0.00-0.02) K/uL Neut # (Auto) 5.14 (1.4-6.5) K/uL Lymph # (Auto) 0.69 L (1.2-3.4) K/uL [place] # (Auto) 0.72 H (0.11-0.59) K/uL Eos # (Auto) 0.24 (0-0.5) K/uL Baso # (Auto) 0.04 (0-0.2) K/uL Sodium 139 (136-145) mmol/L Potassium 4.0 (3.5-5.1) mmol/L Chloride 106 (98-107) mmol/L Carbon Dioxide 31 (21-32) mmol/L Anion Gap 2.0 L (3-11) BUN 26 H (7-18) mg/dl Creatinine 0.67 D (0.6-1.2) mg/dl Est Cr Clr Drug Dosing 48.9 ml/min Est GFR ( Amer) 91.6 Est GFR (Non-Af Amer) 79.0 BUN/Creatinine Ratio 39.2 H (10-20) Glucose 89 (70-99) mg/dl Lactate (0.4-2.0) mmol/L Calcium 8.9 (8.5-10.1) mg/dl Total Bilirubin 0.3 (0.2-1) mg/dl AST 22 (15-37) U/L ALT 28 (12-78) U/L Alkaline Phosphatase 65 (45-117) U/L Total Protein 5.8 L (6.4-8.2) gm/dl Albumin 2.0 L (3.4-5.0) gm/dl Globulin 3.8 (2.5-4.0) gm/dl Albumin/Globulin Ratio 0.5 L (0.9-2) Procalcitonin 0.28 (0-0.5) ng/ml Nasal Screen MRSA (PCR) (Negative) 06/17/19 06/17/19 06/17/19 Range/Units 21:20 21:06 17:58 WBC (4.8-10.8) K/uL RBC (4.2-5.4) M/uL Hgb (12.0-16.0) g/dL Hct (37-47) % MCV (80-100) fL MCH (25-34) pg MCHC (32-36) g/dL RDW Std Deviation (36.4-46.3) fL RDW Coeff of Jacque (11.5-14.5) % Plt Count (130-400) K/uL MPV (7.4-10.4) fL Immature Gran % (Auto) % Neut % (Auto) % Lymph % (Auto) % [place] % (Auto) % Eos % (Auto) % Baso % (Auto) % Immature Gran # (Auto) (0.00-0.02) K/uL Neut # (Auto) (1.4-6.5) K/uL Lymph # (Auto) (1.2-3.4) K/uL [place] # (Auto) (0.11-0.59) K/uL Eos # (Auto) (0-0.5) K/uL Baso # (Auto) (0-0.2) K/uL Sodium 136 (136-145) mmol/L Potassium 4.2 D (3.5-5.1) mmol/L Chloride 102 (98-107) mmol/L Carbon Dioxide 28 (21-32) mmol/L Anion Gap 6.0 (3-11) BUN 24 H (7-18) mg/dl Creatinine 0.97 (0.6-1.2) mg/dl Est Cr Clr Drug Dosing 33.8 ml/min Est GFR ( Amer) 60.9 Est GFR (Non-Af Amer) 52.5 BUN/Creatinine Ratio 24.6 H (10-20) Glucose 138 H (70-99) mg/dl Lactate 1.7 (0.4-2.0) mmol/L Calcium 8.9 (8.5-10.1) mg/dl Total Bilirubin 0.2 (0.2-1) mg/dl AST 34 (15-37) U/L ALT 31 (12-78) U/L Alkaline Phosphatase 81 (45-117) U/L Total Protein 6.7 (6.4-8.2) gm/dl Albumin 2.3 L (3.4-5.0) gm/dl Globulin 4.4 H (2.5-4.0) gm/dl Albumin/Globulin Ratio 0.5 L (0.9-2) Procalcitonin (0-0.5) ng/ml Nasal Screen MRSA (PCR) Negative (Negative) 06/17/19 Range/Units 17:58 WBC 9.02 (4.8-10.8) K/uL RBC 4.42 (4.2-5.4) M/uL Hgb 13.6 (12.0-16.0) g/dL Hct 41.6 (37-47) % MCV 94.1 (80-100) fL MCH 30.8 (25-34) pg MCHC 32.7 (32-36) g/dL RDW Std Deviation 47.9 H (36.4-46.3) fL RDW Coeff of Jacque 13.9 (11.5-14.5) % Plt Count 343 (130-400) K/uL MPV 9.1 (7.4-10.4) fL Immature Gran % (Auto) 6.8 % Neut % (Auto) 66.6 % Lymph % (Auto) 11.3 % [place] % (Auto) 11.8 % Eos % (Auto) 3.1 % Baso % (Auto) 0.4 % Immature Gran # (Auto) 0.61 H (0.00-0.02) K/uL Neut # (Auto) 6.01 (1.4-6.5) K/uL Lymph # (Auto) 1.02 L (1.2-3.4) K/uL [place] # (Auto) 1.06 H (0.11-0.59) K/uL Eos # (Auto) 0.28 (0-0.5) K/uL Baso # (Auto) 0.04 (0-0.2) K/uL Sodium (136-145) mmol/L Potassium (3.5-5.1) mmol/L Chloride (98-107) mmol/L Carbon Dioxide (21-32) mmol/L Anion Gap (3-11) BUN (7-18) mg/dl Creatinine (0.6-1.2) mg/dl Est Cr Clr Drug Dosing ml/min Est GFR ( Amer) Est GFR (Non-Af Amer) BUN/Creatinine Ratio (10-20) Glucose (70-99) mg/dl Lactate (0.4-2.0) mmol/L Calcium (8.5-10.1) mg/dl Total Bilirubin (0.2-1) mg/dl AST (15-37) U/L ALT (12-78) U/L Alkaline Phosphatase (45-117) U/L Total Protein (6.4-8.2) gm/dl Albumin (3.4-5.0) gm/dl Globulin (2.5-4.0) gm/dl Albumin/Globulin Ratio (0.9-2) Procalcitonin (0-0.5) ng/ml Nasal Screen MRSA (PCR) (Negative) Resident Activity Tracking Resident Involvement: Resident Care Provided Care Provided: Adult Hospital Medicine
[2019-06-18] MEDS: ENOXAPARIN INJ 40 MG/0.4 ML SYR SQ SCH (09:14)
--- NOTE | 2019-06-18 10:20 | Psychiatric Consultation ---
Date of Consultation June 18, 2019 Impression / Recommendations Impression Psychiatric consultation was requested to evaluate patient for psychotropic polypharmacy, with concern polypharmacy may be contributing to her AMS. She is reportedly prescribed buspirone 5mg TID; divalproex 250mg BID; escitalopram 15mg; mirtazapine 15mg; and donepezil 10mg. All psychotropic medications held on admission, due to reported concern for confusion related to medications. There is also evidence of sepsis, for which the patient is being treated as well. Will need to communicate with staff at [facility] to determine timeline of mental status change as etiology of AMS remains unclear. Primary team has already decided on holding all psychiatric medications - reportedly with daughter's (POA) approval. It would also be necessary to obtain records from patient's cyril-psych hospitalization at [facility] in order to make appropriate medication recommendations. To avoid counter-productive medication additions, we will refrain from initiating any new psychotropic trials until after collateral information can be obtained. Dr. Denise Treviño was directly involved in review and discussion of the patient's case and participated in medical decision making regarding treatment recomm endations. Psych History Identifying Data 89-year-old female admitted medically on 06/16/2019 after presenting to the ED from [facility] with reports of altered mental status and hypoxia. Psychiatric consultation is requested to evaluate patient for "psychiatric polypharmacy in elderly. Information is gathered primarily from hospital documentation, as patient is a limited historian and POA is not present at time of examination. Chief Complaint "I'm ok. Ok." History of Present Illness Yazmin Arriaga is an 89-year-old female admitted medically on 06/16/2019 with reports of altered mental status and hypoxia. Patient was brought to the ED from [facility], after a significant decline in memory over the past 6 months. It is reported that patient had previously been hospitalized for geriatric psychiatry treatment at [facility], and had previously had a psychiatric evaluation. Psychiatric consultation is requested during this admission to evaluate patient for "psychiatric polypharmacy in elderly." It is reported that the patient is prescribed buspirone 5 mg 3 times daily; divalproex to 50 mg twice daily; donepezil 10 mg nightly; memantine 10 mg every morning; Escitalopram 15 mg every morning; and mirtazapine 15 mg nightly. Decision was made by primary team to hold all psychotropic medications, due to concern and they were contributing to patient's confusion. At time of psychiatric evaluation, patient is observed to be sleeping comfortably in bed. No family or visitors are present at time of evaluation. Patient is aroused easily with verbal stimuli, telling this provider that she is "okay." She responds to the remainder of this providers questions with "okay." According to the patient, she is sleeping, eating, and caring for herself "okay." This provider quickly observe that even yes and no questions were answered with the phrase "okay." Patient is not able to verbalize any additional concerns at time of evaluation. Past Psychiatric History Previous Psych History: Largely unknown. There is a reported history of cognitive/memory impairment, and patient was hospitalized at [facility] for cyril-psych treatment. She has had one psychiatric evaluation while at [facility]. Previous Psych Admissions: [facility] - dates unknown Past Medication Trials: Unknown, as records are unavailable presently Allergies Allergy/AdvReac Type Severity Reaction Status Date / Time No Known Allergies Allergy Verified 06/15/19 21:03 Home Medications Home Medications Medication Instructions Recorded Confirmed Type ibuprofen 200 mg PO Q24H PRN 12/17/18 06/15/19 History sennosides [senna] 8.6 mg PO DAILY PRN 12/17/18 06/15/19 History acetaminophen 500 mg tablet 500 mg PO Q4H PRN tab MDD 3 gms 03/05/19 06/15/19 History APAP/24 Hours calcium carbonate 600 mg (1,500 1 tab PO QAM tab 03/11/19 06/15/19 History mg)-vitamin D3 400 unit tablet buspirone 5 mg tablet 5 mg PO TID #90 tab 04/11/19 06/15/19 Rx divalproex 125 mg tablet,delayed 250 mg PO BID #120 tab 04/11/19 06/15/19 Rx release vitamin B complex 1 tab PO DAILY #90 tab 04/11/19 06/15/19 Rx ciprofloxacin HCl 250 mg PO BID 06/15/19 06/15/19 History donepezil 10 mg PO QPM 06/15/19 06/15/19 History escitalopram oxalate 15 mg PO DAILY 06/15/19 06/15/19 History memantine [Namenda] 10 mg PO DAILY 06/15/19 06/15/19 History mirtazapine 15 mg PO HS 06/15/19 06/15/19 History Personal History Living Arrangements: Intermediate ([facility]) Patient History Medical History Acute kidney failure Anorexia (Acute) Anxiety (Acute) Cervical spondylolysis (Acute) Cervicalgia (Acute) Depression (Acute) DJD (degenerative joint disease) of hip Gait disturbance (Acute) Headache (Acute) Hyperlipidemia (Acute) Insomnia (Acute) Joint pain in the shoulder/clavicle region (Acute) Lumbar radiculopathy (Acute) Memory problem (Acute) Microcytic anemia (Acute) Osteopenia (Acute) Posterior pain of right hip (Acute) Right bundle branch block (Acute) Sacral radiculopathy (Acute) Sicca syndrome (Acute) Family History Father Heart disease Mother Heart disease Other Family history non-contributory Social History Preferred Language: Divehi Communication Ability: Unable Staff Command And Control Officer Required: No Beliefs That Will Affect Care: None marital status: / Current Living Situation: Intermediate current occupational status: retired Feels Safe at Home: Yes Smoking Status: Never smoker Hx Alcohol Use: No Hx Substance Use: No Physical Exam Psychiatric: Orientation: alert (Minimally, aroused by verbal stimuli and responding to questions) Apperance: appropriately dressed (In hospital gown), appropriately groomed and appeared stated age Eye Contact: + poor eye contac t (Participates in most of conversation with eyes closed) Motor Behavior: no abnormal motor movements (Observed while laying in bed) Speech: normal rate/rhythm/volume of speech (Response to most questions with "okay", speech is nonspontaneous) Affect: + blunted affect (Patient appearing sedated, not overtly depressed or anxious) Hallucinations: no auditory hallucinations and no visual hallucinations Does not appear to be responding to internal stimuli Cognition: + attention not intact and + language not intact Insight: + impaired insight Judgement: + impaired judgement Vital Signs (Past 24 Hours): Last Vital Signs Temp 37.1 C 06/18/19 09:25 Pulse 96 H 12/04/19 09:25 Resp 20 06/18/19 09:25 BP 93/64 L 06/18/19 09:25 Pulse Ox 91 06/18/19 09:25 Review of Systems Pt denies any physical pain. Difficulty gathering comprehensive ROS due to patient's level of sedation and disorientation. Results & Data Medications Administered Acetaminophen (Tylenol) 650 mg PO Q4H PRN PRN Reason: pain/fever Stop: 07/16/19 01:39 Last Admin: 06/17/19 18:15 Dose: 650 mg Documented by: [id number] Enoxaparin Sodium (Lovenox) 40 mg SQ Q24H JONNATHAN Stop: 07/16/19 07:59 Last Admin: 06/18/19 09:14 Dose: 40 mg Documented by: [id number] Admin: 06/17/19 09:30 Dose: 40 mg Documented by: [id number] Admin: 06/16/19 08:14 Dose: 40 mg Documented by: [id number] Ampicillin Sodium/Sulbactam Sodium 3,000 mg/ Sodium Chloride 108 mls @ 200 mls/hr IV Q6H JONNATHAN; Protocol Stop: 06/24/19 21:59 Last Infusion: 06/18/19 10:07 Dose: 0 mls/hr Documented by: [id number] Admin: 06/18/19 09:04 Dose: 200 mls/hr Documented by: [id number] Infusion: 06/18/19 03:51 Dose: 0 mls/hr Documented by: [id number] Admin: 06/18/19 03:12 Dose: 200 mls/hr Documented by: [id number] Infusion: 06/18/19 01:04 Dose: 0 mls/hr Documented by: [id number] Admin: 06/17/19 22:12 Dose: 200 mls/hr Documented by: [id number] Ioversol (Optiray 320 125ml) 76 ml IV ONCE PRN PRN Reason: Interaction Checking Stop: 06/19/19 22:55 Last Admin: 06/15/19 22:56 Dose: 76 ml Documented by: [id number] Coding Level of Care Code 49473 B[facility] Intl Hosp Care Lvl 2
--- NOTE | 2019-06-18 12:18 | XRay Report ---
XR ankle RT min 3V routine CLINICAL HISTORY: swollen tender ankle pain COMPARISON: None. DISCUSSION: Mild generalized soft tissue edema. Mild generalized degenerative change. No evidence for fracture or dislocation. There is no evidence for soft tissue swelling. IMPRESSION: 1. Mild generalized soft tissue edema. 2. No acute bony abnormality. The above report was generated using voice recognition software. It may contain grammatical, syntax or spelling errors. Electronically signed by: Tato Dunham M.D. 06/18/2019 12:17 PM
--- NOTE | 2019-06-18 12:45 | Magnetic Resonance Report ---
MR brain wo con HISTORY: Mental status change delirium TECHNIQUE: Multiplanar multisequence MRI of the brain was performed without the use of contrast. COMPARISON STUDY: 05/31/2009 FINDINGS: There are no areas of restricted diffusion to suggest acute infarction. The midline structu res are intact. The paranasal sinuses are clear. The mastoid air cells are clear. The ventricles and sulci are within normal limits for age. There is no mass, hematoma, midline shift. The major vascular flow-voids at the skull base are well maintained. There are findings of mild cerebellar as well as cerebral atrophy. This is slightly progressive clarence red to the prior study. IMPRESSION: 1. Mild atrophy slightly progressive compared to the prior study. 2. Otherwise no acute process. The above report was generated using voice recognition software. It may contain grammatical, syntax or spelling errors. Electronically signed by: Tato Dunham M.D. 06/18/2019 12:44 PM
[2019-06-18] MEDS ORDERED: FUROSEMIDE 20 MG in SYRINGE 0 ML IV SCH (13:30)
[2019-06-18] MEDS ORDERED: VANCOMYCIN HCL 1,000 MG in SODIUM CHLORIDE 0.9% 250 ML IV SCH (22:00)
[2019-06-19] MEDS: AMPICILLIN/SULBACTAM SOD 3,000 MG in 0.9 % SODIUM CHLORIDE 100 ML IV SCH ×3 (03:23→15:43)
[2019-06-19 05:52] LABS: Hematocrit (blood only) 37.5 % (37-47); Hemoglobin 12.2 g/dL (12.0-16.0); Mean Corpuscular Hgb Conc 32.5 g/dL (32-36); Mean Corpuscular Volume 92.4 fL (80-100); Mean Platelet Volume 9.4 fL (7.4-10.4); Platelet Count 300 K/uL (130-400); RDW Coefficient of Variation 13.8 % (11.5-14.5); RDW Standard Deviation 46.5 fL (36.4-46.3); Red Blood Count 4.06 M/uL (4.2-5.4)
[2019-06-19 06:27] LABS: Basophils # (auto) 0.03 K/uL (0-0.2); Basophils % (auto) 0.4 %; Eosinophils # (auto) 0.32 K/uL (0-0.5); Eosinophils % (auto) 4.3 %; Immature Granulocytes # (auto) 0.53 K/uL (0.00-0.02); Immature Granulocytes % (auto) 7.1 %; Lymphocytes % (auto) 14.7 %; Monocytes # (auto) 0.78 K/uL (0.11-0.59); Monocytes % (auto) 10.4 %; Neutrophils # (auto) 4.74 K/uL (1.4-6.5); Neutrophils % (auto) 63.1 %
[2019-06-19 06:34] LABS: Albumin Globulin Ratio 0.5 (0.9-2); Albumin Level 1.8 gm/dl (3.4-5.0); BUN Creatinine Ratio 34.8 (10-20); Bilirubin,Total 0.3 mg/dl (0.2-1); Creatinine Clr Calc Pharmacy 44.3 ml/min; Est GFR (African American) 84.4; Est GFR (Non-African American) 72.8; Potassium 3.4 mmol/L (3.5-5.1); Total Protein 5.8 gm/dl (6.4-8.2)
[2019-06-19] MEDS ORDERED: POTASSIUM CHLORIDE 20 MEQ TABCR PO STA (07:44)
--- NOTE | 2019-06-19 09:17 | Hospitalist Progress Note ---
Date of Service June 19, 2019 Assessment & Plan (1) Hypoxia: 89yo F PMH anxiety/depression, memory impairment, recurrent UTIs presents with acute on chronic cognitive decline as well as hypoxia. 1) Altered Mental Status of unknown etiology - Infectious cause - unlikely to be infectious source - afebrile, normal lactate, procalcitonin, WBC, blood cultures negative at 24 hours - Unasyn d/c'd at this time - Polypharmacy - patient's mentation and ability to communicate improved greatly after stopping all home meds and clearance of sedatives through system - currently still agitated and requires continuous reorienting to surround ings - MRI negative for intracranial changes or visible cause of mentation change - Palliative care consulted: comfort care initiated. will continue lasix and oxygen supplementation for breathing relief. Can use morphine for air hunger as well. 2) Acute on Chronic HFpEF (ef 70%) - Echo for CHF eval: limited study showing hyperdynamic left ventricle, no valvular disease. - third spacing of fluid on CTA lungs 2/2 low albumin and poor nutritional intake - minimal improvement of pleural fluid on CXR - lasix 20mg IV to offload fluid; weight down 61.3 kg to 57.5 kg /2 to 06/19 - patient is not on any cardiac HF meds 3) Malnutrition - dietary consulted Code: DNR; comfort care Dispo: med/surg DVT Px: lovenox (2) Memory problem: (3) Depression: (4) Anxiety: Supervising Physician Co-Signing Physician Notes Attending attestation Pt seen and examined in concert with Dr. Oconnell. In agreement with the documented findings as noted in the resident documentation with any exceptions or additions as noted here. Waxing and waning mental status, AAOx1. Still intermittently refusing to participate in care. Denies complaints. On examination, S1/S2 nl RRR no MCG. scattered wheeze and bibasilar crackles w ith persistent coughing in room. Abd NT/ND BS+ve Following discussion with daughter and palliative care service, will transition to comfort measures. Seeking dispo to SNF tomorrow. Can add morphine for agitation or pain. HFpEF v. protein deficient fluid overload Delirium with underlying dementia, suspected toxic encephalopathy from psychiatric medications v. malnutrition Malnutrition - diet as tolerated, boost preferred by patient. Only call by Yazmin, not ma'am or dear. Subjective 89 yo F with PMH dementia, CHF, hyperlipidemia who was admitted for polypharmacy delirium and hypoxia. This morning still on 3L NC but more lethargic. Answers questions appropriately but repeatedly asks to "sleep in more" and is hesitant to move. Denies any pain or discomfort, no shortness of breath. Review of Systems Constitutional: no fever, no chills, no body aches and no fatigue Respiratory: no cough and no dyspnea Cardiovascular: no chest pain, no dyspnea and no edema Gastrointestinal: no abdominal pain, no nausea, no vomiting, no constipation and no diarrhea/loose stools Genitourinary: no dysuria Physical Exam Constitutional: + altered mental status; no acute distress responsive on exam but very lethargic Respiratory: normal respiratory effort; no respiratory distress, no labored breathing and no cough Cardiovascular: Rate/Rhythm: regular rate; + abnormal rhythm Heart Sounds: + murmur (systolic ejection at R 2nd intercostal) Vessels: normal carotid upstroke Extremities: no calf tenderness Psychiatric: Orientation: alert and cooperative Results & Data Vital Signs (Past 12 Hours) Vital Signs Temp Pulse Resp BP Pulse Ox 06/18/19 23:09 37.6 C H 107 H 20 95/61 L 90 06/19/19 06/19/19 06/18/19 Range/Units 05:01 05:01 08:32 WBC 7.50 (4.8-10.8) K/uL RBC 4.06 L (4.2-5.4) M/uL Hgb 12.2 (12.0-16.0) g/dL Hct 37.5 (37-47) % MCV 92.4 (80-100) fL MCH 30.0 (25-34) pg MCHC 32.5 (32-36) g/dL RDW Std Deviation 46.5 H (36.4-46.3) fL RDW Coeff of Jacque 13.8 (11.5-14.5) % Plt Count 300 (130-400) K/uL MPV 9.4 (7.4-10.4) fL Immature Gran % (Auto) 7.1 % Neut % (Auto) 63.1 % Lymph % (Auto) 14.7 % Sevier % (Auto) 10.4 % Eos % (Auto) 4.3 % Baso % (Auto) 0.4 % Immature Gran # (Auto) 0.53 H (0.00-0.02) K/uL Neut # (Auto) 4.74 (1.4-6.5) K/uL Lymph # (Auto) 1.10 L (1.2-3.4) K/uL Sevier # (Auto) 0.78 H (0.11-0.59) K/uL Eos # (Auto) 0.32 (0-0.5) K/uL Baso # (Auto) 0.03 (0-0.2) K/uL Sodium 140 (136-145) mmol/L Potassium 3.4 L (3.5-5.1) mmol/L Chloride 104 (98-107) mmol/L Carbon Dioxide 32 (21-32) mmol/L Anion Gap 4.0 (3-11) BUN 26 H (7-18) mg/dl Creatinine 0.74 (0.6-1.2) mg/dl Est Cr Clr Drug Dosing 44.3 ml/min Est GFR ( Amer) 84.4 Est GFR (Non-Af Amer) 72.8 BUN/Creatinine Ratio 34.8 H (10-20) Glucose 87 (70-99) mg/dl Calcium 9.0 (8.5-10.1) mg/dl Total Bilirubin 0.3 (0.2-1) mg/dl AST 22 (15-37) U/L ALT 26 (12-78) U/L Alkaline Phosphatase 66 (45-117) U/L Total Protein 5.8 L (6.4-8.2) gm/dl Albumin 1.8 L (3.4-5.0) gm/dl Globulin 4.0 (2.5-4.0) gm/dl Albumin/Globulin Ratio 0.5 L (0.9-2) Procalcitonin 0.28 (0-0.5) ng/ml Resident Activity Tracking Resident Involvement: Resident Care Provided Care Provided: Adult Hospital Medicine
[2019-06-19] MEDS: ENOXAPARIN INJ 40 MG/0.4 ML SYR SQ SCH (09:26)
[2019-06-19] MEDS ORDERED: FUROSEMIDE 10 MG in SYRINGE 0 ML IV ONE (14:00)
--- NOTE | 2019-06-19 14:35 | XRay Report ---
XR chest 1V portable HISTORY: Congestive heart failure. Hypoxia. COMPARISON: Chest 06/17/2019. FINDINGS: Interval progression of the diffuse interstitial thickening consistent with mild pulmonary edema. Small bilateral pleural effusions have also progressed. The heart is top normal in size. No pn eumothorax. Moderate hiatus hernia is again noted. Bibasilar linear densities favor subsegmental atel ectasis. IMPRESSION: Slight progression of the mild interstitial pulmonary edema and small bilateral pleural effusions. Electronically signed by: Pacheco Moncada M.D. 06/19/2019 2:34 PM
--- NOTE | 2019-06-19 15:49 | Communication Note ---
Date of Service: June 19, 2019 Discharge Summary Received from [facility]: 02/27/19 - 03/19/19 It is reported the patient was admitted to [facility] under a "201 DPOA status" due to increasing agitation and combativeness at [facility]. It is stated the patient had been diagnosed with a UTI, and was treated with a course of antibiotics. There is no prior history of psychiatric hospitalizations for the patient. 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 It seems as though patient was admitted with a medication regimen of Aricept 10 mg nightly, alprazolam 0.25 mg twice daily, and citalopram 40 mg daily. Over the course of the patient's admission, her medications were adjusted to: Lexapro 10 mg every morning, Namenda 5 mg every morning trazodone 25 mg nightly, buspirone 5 mg 3 times daily, and olanzapine 7.5 mg nightly. It is reported patient was also initiated on a trial of Depakote to assist with mood stabilization. She was titrated to a dose of 250 mg twice daily. It is reported the patient tolerated the medication adjustments, and demonstrated improvement in mood stability, psychotic symptoms, and anxiety. Sleep is reportedly improved over the course of her admission. Patient was determined to be appropriate for discharge back to [facility], after evaluation by their client relations representative. Once this determination was made, it is reported that daughter contacted [facility] staff, insisting patient be discharged back to [facility]. Facility states they accommodated this request. Patient's mood on day of discharge was reportedly "euthymic with constricted but reactive affect." Thought process is reported to be "generally linear." Patient reportedly did not appear to be responding to internal stimuli at time of discharge. 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 No information regarding aftercare plan was included in discharge summary. Patient was reportedly discharged back to [facility].
--- NOTE | 2019-06-19 16:56 | Palliative Care Consultation ---
Date of Consultation June 19, 2019 Assessment & Plan (1) Goals of care, counseling/discussion: -89 year old female patient with PMH dementia with behavioral disturbance, malnutrition, anemia, depression, DJD, and others, presented to the hospital from [facility] care unit with c/o fever and altered mental status. Patient was living alone independently up until about six months ago when she moved to [facility]. He was doing ok until patient's daughter went out of town at which time patient began having increased agitation and at times combativeness. She went to a candace-psych unit at which time she was started on several new medications for her behavior. She returned to [facility] but was not doing well. Her care increased to a level at which [facility] could not provide, so she moved to [facility]. She was doing somewhat better behaviorally until recently when she "went on strike"-- would not eat or drink, did not want to get out of bed, not allowing staff to help her bathe or go to the bathroom. She then developed fever and came to the hospital with some signs of sepsis. She has been treated with abx accordingly. Patient also had significant volume overload and has been diuresed with furosemide. All of her psychiatric medications have been discontinued and she is doing better as far as being more alert and awake. Physically, patient is still able to get out of bed and ambulate, although she is weak. Patient has been eating minimally-- her albumin is 1.8. Patient mostly refuses to participate in PT/OT and states she wants to be left alone. Her daughter Carmelita has many questions about the progression of dementia and what the end-stages may look like. Palliative care is consulted to discuss goals of care and provide support. -Met with patient and her daughter, Carmelita, in room 461. Patient is awake, oriented to person and place. Becomes agitated at times. Has some confusion. -Spoke with Carmelita at length outside of patient's room. She explained patient's life in the last six months as well as her rapid decline and behavioral disturbances. She states patient is doing better since her multiple psych medications were discontinued upon admission. -Carmelita states that the patient has recently been boycotting any physical activity, medical treatment, food, etc. She states that patient is "giving up" and essentially wants to allow natural . Carmelita had many questions about the progression of disease, what end-stage dementia looks like, when the appropriate time to bring hospice in, etc. We talked about all of these things at length. -The goal is for comfort and quality of life. However, patient is not imminently dying at this time. She is about a 6c on FASt scale-- indicating moderately severe dementia, but not end-stage. However, given patient's comorbidities including the volume overload and hypoxia, I do believe that she may qualify for hospice in the near future if not now. -Plan for after hospitalization is for patient to go to [facility] in the skilled facility. Attempt to participate in PT/OT to see if there is any improvement to be made. After skilled period, likely transition to long-term care and eventually hospice. -We talked about POLST form. Patient's daughter states that because of the way her mother worded her living will, she wants to check with a reproduction production manager prior to signing anything. -Continue Lasix upon discharge. Continue oxygen for comfort. -We will follow as needed. (2) Severe malnutrition: (3) CHF (congestive heart failure): Heart failure chronicity: acute Heart failure type: unspecified Qualified Code(s): I50.9 - Heart failure, unspecified (4) Fever: Fever type: unspecified Qualified Code(s): R50.9 - Fever, unspecified (5) Hypoxia: (6) Dementia: History of Present Illness Reason for Consultation: Goals of care Requesting Physician: Dr. Oconnell Attending Physician: Juan Miguel Alves MD History of Present Illness This 89 year old female patient with H dementia with behavioral disturbance, malnutrition, anemia, depression, DJD, and others, presented to the hospital from [facility] memory care unit with c/o fever and altered mental status. Patient was living alone independently up until about six months ago when she moved to [facility]. He was doing ok until patient's daughter went out of town at which time patient began having increased agitation and at times combativeness. She went to a candace-psych unit at which time she was started on several new medications for her behavior. She returned to [facility] but was not doing well. Her care increased to a level at which [facility] could not provide, so she moved to [facility]. She was doing somewhat better behaviorally until recently when she "went on strike"-- would not eat or drink, did not want to get out of bed, not allowing staff to help her bathe or go to the bathroom. She then developed fever and came to the hospital with some signs of sepsis. She has been treated with abx accordingly. Patient also had significant volume overload and has been diuresed with furosemide. All of her psychiatric medications have been discontinued and she is doing better as far as being more alert and awake. Physically, patient is still able to get out of bed and ambulate, although she is weak. Patient has been eating minimally-- her albumin is 1.8. Patient mostly refuses to participate in PT/OT and states she wants to be left alone. Her daughter Carmelita has many questions about the progression of dementia and what the end-stages may look like. Palliative care is consulted to discuss goals of care and provide support. Thank you kindly for this consult. Palliative care team will follow as needed. Allergies Allergy/AdvReac Type Severity Reaction Status Date / Time No Known Allergies Allergy Verified 06/15/19 21:03 Home Medications Home Medications Medication Instructions Recorded Confirmed Type ibuprofen 200 mg PO Q24H PRN 12/17/18 06/15/19 History sennosides [senna] 8.6 mg PO DAILY PRN 12/17/18 06/15/19 History acetaminophen 500 mg tablet 500 mg PO Q4H PRN tab MDD 3 gms 03/05/19 06/15/19 History APAP/24 Hours calcium carbonate 600 mg (1,500 1 tab PO QAM tab 03/11/19 06/15/19 History mg)-vitamin D3 400 unit tablet buspirone 5 mg tablet 5 mg PO TID #90 tab 04/11/19 06/15/19 Rx divalproex 125 mg tablet,delayed 250 mg PO BID #120 tab 04/11/19 06/15/19 Rx release vitamin B complex 1 tab PO DAILY #90 tab 04/11/19 06/15/19 Rx ciprofloxacin HCl 250 mg PO BID 06/15/19 06/15/19 History donepezil 10 mg PO QPM 06/15/19 06/15/19 History escitalopram oxalate 15 mg PO DAILY 06/15/19 06/15/19 History memantine [Namenda] 10 mg PO DAILY 06/15/19 06/15/19 History mirtazapine 15 mg PO HS 06/15/19 06/15/19 History Patient History Medical History (Updated 06/19/19 @ 16:58 by SARA Wright) Acute kidney failure Anorexia (Acute) Anxiety (Acute) Cervical spondylolysis (Acute) Cervicalgia (Acute) Dementia Depression (Acute) DJD (degenerative joint disease) of hip Gait disturbance (Acute) Goals of care, counseling/discussion Headache (Acute) Hyperlipidemia (Acute) Insomnia (Acute) Joint pain in the shoulder/clavicle region (Acute) Lumbar radiculopathy (Acute) Memory problem (Acute) Microcytic anemia (Acute) Osteopenia (Acute) Posterior pain of right hip (Acute) Right bundle branch block (Acute) Sacral radiculopathy (Acute) Sicca syndrome (Acute) Family History Father Heart disease Mother Heart disease Other Family history non-contributory Social History Preferred Language: Martiniquais Communication Ability: Unable Commercial Carpenter Required: No marital status: / Current Living Situation: Group Home current occupational status: retired Feels Safe at Home: Yes Smoking Status: Never smoker Hx Alcohol Use: No Hx Substance Use: No Review of Systems Constitutional: + weakness and + anorexia (reported by daughter and staff) Respiratory: no dyspnea Cardiovascular: no chest pain and no edema Gastrointestinal: no nausea and no vomiting Neurologic: + memory loss Psychiatric: + irritability and + confusion reported by daughter and staff Physical Exam Constitutional: + frail appearing (elderly); no acute distress Respiratory: normal respiratory effort Auscultation: + diminished lung sounds Cardiovascular: Rate/Rhythm: regular rate and regular rhythm Extremities: + edema (generalized, trace edema) Skin: + turgor decreased Neurologic: moves all extremities, awake and + confused Psychiatric: Orientation: alert, oriented to person and oriented to place; + not oriented to time Affect: + irritable affect Insight: + poor insight Judgement: + impaired judgement Results & Data Vital Signs (Past 12 Hours) Vital Signs Temp Pulse Resp BP Pulse Ox 06/19/19 09:21 36.6 C 96 H 20 89/55 L 92 Time Spent Midlevel 70 minutes with >50% of the time spent at bedside with patient and family discussing condition and GOC.
--- NOTE | 2019-06-20 08:22 | Hospitalist Progress Note ---
Date of Service June 20, 2019 Assessment & Plan (1) Hypoxia: 89yo F PMH anxiety/depression, memory impairment, recurrent UTIs presents with acute on chronic cognitive decline as well as hypoxia. 1) Altered Mental Status of unknown etiology - Infectious cause - unlikely to be infectious source - afebrile, normal lactate, procalcitonin, WBC, blood cultures negative at 24 hours - Unasyn d/c'd at this time - Polypharmacy - patient's mentation and ability to communicate improved greatly after stopping all home meds and clearance of sedatives through system - currently still agitated and requires continuous reorienting to surround ings - MRI negative for intracranial changes or visible cause of mentation change - Palliative care consulted: comfort care. 2) Dementia - restarting donepazil, amantidine - will discuss trying olanzapine at bedtime for with psychiatry team 3) Acute on Chronic HFpEF (ef 70%) - Echo for CHF eval: limited study showing hyperdynamic left ventricle, no valvular disease. - third spacing of fluid on CTA lungs 2/2 low albumin and poor nutritional intake - minimal improvement of pleural fluid on CXR - lasix 20 IV switched to PO; weight down 61.3 kg to 57.5 kg 06/16 to 06/19 4) Malnutrition - dietary consulted - oral diet as tolerated Code: DNR; comfort care Dispo: med/surg DVT Px: lovenox (2) Memory problem: (3) Depression: (4) Anxiety: Supervising Physician Co-Signing Physician Notes I saw the patient with the resident physician and confirmed cruz portions of the history and physical examination. Agree with the impression and plan as noted above. The patient is in her bed with her daughter at bedside. The patient is actually quite interactive and participates in the conversation today; she is able to add meaningful information to the conversation. Dementia with behavioral disturbance I suspect that this patient has a moderate dementia with recent behavioral disturbance. She had an inpatient psychiatric admission within the past few months although it sounds as this may have been attributed to a urinary tract infection, at least in part. At this admission, it sounds as if the thought was that she was overmedicated -with medications being held her overall sensorium has improved. Had a lengthy conversation with the patient and daughter regarding medications use for dementia as well as the incidence of behavior disturbance in moderate to severe dementia. Plan Restart Aricept Restart Namenda but would increase from her previous dose of 5 mg daily to 5 mg twice daily. There is some evidence that Namenda is beneficial in terms of lessening the behavioral disturbances associated with dementia. Restart Lexapro 10 mg. The patient had previously been on citalopram and the daughter asked if this would be a better option; I would prefer Lexapro since it has less effect on the QT interval in the elderly, I think the antidepressant effects would be similar. Could consider re-adding an atypical antipsychotic at night for control of symptoms. Of course this comes with a new black box warning, although in this case the benefits may outweigh the risk. Also await psychiatry input. Subjective Early this morning Yazmin was very tired, with comments that she was very sleepy. Continued to deny pain or shortness of breath or trouble breathing. Later in the morning, closer to the noon hour, Yazmin was very alert and present, actively following along with conversation and commenting on things playing on the TV. Daughter was sitting at bedside and agreed that Yazmin was much more "with it" today compared to previous days. Talked extensively regarding options for restarting dementia medications based on discharge summary from [facility]. Review of Systems Constitutional: no fever, no chills, no body aches and no fatigue Respiratory: no cough and no dyspnea Cardiovascular: no chest pain, no dyspnea and no edema Gastrointestinal: no abdominal pain, no nausea, no vomiting, no constipation and no diarrhea/loose stools Genitourinary: no dysuria Physical Exam Constitutional: cooperative; no acute distress and not ill appearing Neck: normal visual inspection Respiratory: Patient resistant to turning for posterior lung exam. Anterior auscultation showed no rhonchourous breath sounds, no crackles, no wheezes. Cardiovascular: Rate/Rhythm: regular rate and regular rhythm Heart Sounds: normal S1 and normal S2; no gallop, no murmur and no cardiac rub Vessels: posterior tibial pulses present Extremities: no pedal edema and no edema Gastrointestinal (Abdomen): Inspection/Auscultation: abdomen normal to inspection and normal bowel sounds; abdomen not distended Percussion/Palpation: abdomen soft; abdomen nontender, no guarding, abdomen not rigid and no abdominal mass Resident Activity Tracking Resident Involvement: Resident Care Provided Care Provided: Adult [facility] Medicine
[2019-06-20] MEDS ORDERED: FUROSEMIDE 10 MG in SYRINGE 0 ML IV ONE (08:30)
[2019-06-20] MEDS: MEMANTINE HCL 5 MG TAB PO SCH ×2 (14:00→20:41)
[2019-06-20] MEDS: DONEPEZIL HCL 10 MG TAB PO SCH (20:42)
[2019-06-21] MEDS: MEMANTINE HCL 5 MG TAB PO SCH ×2 (07:44→21:10)
[2019-06-21] MEDS: FUROSEMIDE 20 MG TAB PO SCH (07:44)
[2019-06-21] MEDS: ESCITALOPRAM OXALATE 10 MG TAB PO SCH (07:44)
--- NOTE | 2019-06-21 14:47 | Hospitalist Progress Note ---
Date of Service June 21, 2019 Assessment & Plan (1) Hypoxia: 89yo F PMH anxiety/depression, memory impairment, recurrent UTIs presents with acute on chronic cognitive decline as well as hypoxia. 1) Altered Mental Status of unknown etiology - Infectious cause - unlikely to be infectious source - afebrile, normal lactate, procalcitonin, WBC, blood cultures negative at 24 hours - Unasyn d/c'd at this time - Polypharmacy - patient's mentation and ability to communicate improved greatly after stopping all home meds and clearance of sedatives through system - currently still agitated and requires continuous reorienting to surround ings - MRI negative for intracranial changes or visible cause of mentation change - Palliative care consulted: comfort care. 2) Dementia - restarted donepazil, amantidine yesterdat. pt seems to be tolerating them well. - appreciate recs from psychiatry team for recommendations on a nighttime antipsychotic that would help with sundowning and mood stabilization 3) Acute on Chronic HFpEF (ef 70%) - Echo for CHF eval: limited study showing hyperdynamic left ventricle, no valvular disease. - third spacing of fluid on CTA lungs 2/2 low albumin and poor nutritional intake - minimal improvement of pleural fluid on CXR - lasix 20 IV switched to PO; weight down 61.3 kg to 54.2 from admission to 06/21. likely a mixed etiology between fluid offloading and malnutrition 4) Malnutrition - dietary consulted - oral diet as tolerated 5) hypoxia (resolved) - pt admitted needing 3L NC, did not use oxygen at home - now breathing well and saturating appropriately on room air - was likely secondary to fluid in lungs and over sedation FEN/GI: regular diet with boost supplement Code: DNR; comfort care Dispo: med/surg DVT Px: lovenox (2) Memory problem: (3) Depression: (4) Anxiety: Supervising Physician Co-Signing Physician Notes I saw the patient with the resident physician and confirmed cruz portions of the history and physical examination. Agree with the impression and plan as noted above. The patient is sleeping but awakens to my voice. She voices no complaints. Her mentation is similar to yesterday; generally oriented to situation and place. Dementia with behavioral disturbance I think the patient has reached a nice level on the current medications; an atypical antipsychotic could be used as needed, especially when the benefits outweigh the risk -this is been discussed with the patient's daughter yesterday. She did not seem to do well on the Depakote, and at this point I do not think it would be useful. Plan Aricept 10 mg p.o. daily Namenda 5 mg p.o. twice daily Lexapro 10 mg daily Zyprexa 2.5 mg p.o. nightly as needed Plan is discharge to [facility] pending bed availability Subjective pleasantly conversant this morning. oriented to person, relative place and time. she was under the impression of being in [facility] and that it was already 2019. She appears to be the most euthymic/un-agitated she has been during her entire stay. Review of Systems Constitutional: + daytime sleepiness; no fever Respiratory: no cough and no dyspnea Cardiovascular: no chest pain, no palpitations and no edema Gastrointestinal: no abdominal pain and no early satiety Physical Exam Constitutional: + thin and cooperative; no acute distress and not ill appearing Neck: normal visual inspection Respiratory: normal respiratory effort; no respiratory distress, no labored breathing and no cough Auscultation: no crackles, no rhonchi and no wheezes Cardiovascular: Rate/Rhythm: regular rate and regular rhythm Heart Sounds: normal S1 and normal S2; no gallop, no murmur and no cardiac rub Vessels: normal carotid upstroke and posterior tibial pulses present Extremities: no calf tenderness, no pedal edema and no edema Gastrointestinal (Abdomen): Inspection/Auscultation: abdomen normal to inspection and normal bowel sounds; abdomen not distended Percussion/Palpation: abdomen soft; abdomen nontender, no guarding, abdomen not rigid and no abdominal mass Psychiatric: A+Ox3, euthymic affect Orientation: alert and cooperative Resident Activity Tracking Resident Involvement: Resident Care Provided Care Provided: Adult Hospital Medicine
[2019-06-21] MEDS: DONEPEZIL HCL 10 MG TAB PO SCH (21:10)
[2019-06-21] MEDS: OLANZAPINE 2.5 MG TAB PO SCH (21:10)
[2019-06-22] MEDS: FUROSEMIDE 20 MG TAB PO SCH (08:24)
[2019-06-22] MEDS: MEMANTINE HCL 5 MG TAB PO SCH ×2 (08:25→20:13)
[2019-06-22] MEDS: ESCITALOPRAM OXALATE 10 MG TAB PO SCH (08:25)
--- NOTE | 2019-06-22 09:26 | Hospitalist Progress Note ---
Date of Service June 22, 2019 Assessment & Plan (1) Hypoxia: 89yo F PMH anxiety/depression, memory impairment, recurrent UTIs presents with acute on chronic cognitive decline as well as hypoxia. 1) Altered Mental Status of unknown etiology (resolved) - Infectious cause - unlikely to be infectious source - afebrile, normal lactate, procalcitonin, WBC, blood cultures negative at 24 hours - Unasyn d/c'd at this time - Polypharmacy - patient's mentation and ability to communicate improved greatly after stopping all home meds and clearance of sedatives through system - currently still agitated and requires continuous reorienting to surroundings - MRI negative for intracranial changes or visible cause of mentation change - Palliative care consulted: comfort care. 2) Dementia - restarted donepazil, amantidine yesterdat. pt seems to be tolerating them well. - Zyprexa 2.5 mg QHS started yesterday for and delirium. No overnight concerns or issues, patient appears to have tolerated it well. 3) Acute on Chronic HFpEF (ef 70%) - Echo for CHF eval: limited study showing hyperdynamic left ventricle, no valvular disease. - third spacing of fluid on CTA lungs 2/2 low albumin and poor nutritional intake - minimal improvement of pleural fluid on CXR - lasix 20 IV switched to PO 4) Malnutrition - dietary consulted - oral diet as tolerated 5) hypoxia (resolved) - pt admitted needing 3L NC, did not use oxygen at home - now breathing well and saturating appropriately on room air - was likely secondary to fluid in lungs and over sedation FEN/GI: regular diet with boost supplement DVT ppx: SCDs Code: DNR; comfort care Dispo: med/surg DVT Px: lovenox (2) Memory problem: (3) Depression: (4) Anxiety: Supervising Physician Co-Signing Physician Notes I saw the patient with the resident physician and confirmed cruz portions of the history and physical examination. Agree with the impression and plan as noted above. The patient was mildly agitated this morning, although this improved with opening the blinds and turning the television. Dementia with behavioral disturbance I think the patient has reached a nice level on the current medications; Zyprexa was added as a as needed medication at night. Plan is to discharge to [facility] pending bed availability Plan Aricept 10 mg p.o. daily Namenda 5 mg p.o. twice daily Lexapro 10 mg daily Zyprexa 2.5 mg p.o. nightly as needed Subjective mildly confused this morning regarding where she was and who i was. Easily reoriented once window blinds were open and tv turned on. No complaints this morning other than feeling tired. Review of Systems Constitutional: no fever, no chills, no body aches and no fatigue Respiratory: no cough and no dyspnea Cardiovascular: no chest pain, no dyspnea and no edema Physical Exam Constitutional: + thin and cooperative; no acute distress and not ill appearing Neck: normal visual inspection Respiratory: normal respiratory effort; no respiratory distress, no labored breathing and no cough Cardiovascular: Rate/Rhythm: regular rate and regular rhythm Heart Sounds: normal S1 and normal S2; no gallop, no murmur and no cardiac rub Vessels: normal carotid upstroke and posterior tibial pulses present Extremities: no calf tenderness, no pedal edema and no edema Results & Data Vital Signs (Past 12 Hours) Vital Signs Temp Pulse Resp BP Pulse Ox 06/21/19 23:31 36.9 C 82 20 100/66 92 Resident Activity Tracking Resident Involvement: Resident Care Provided Care Provided: Adult Hospital Medicine
[2019-06-22] MEDS: OLANZAPINE 2.5 MG TAB PO SCH (20:12)
[2019-06-22] MEDS: DONEPEZIL HCL 10 MG TAB PO SCH (20:13)
[2019-06-22] MEDS: ACETAMINOPHEN 325 MG TAB PO PRN (21:07)
--- NOTE | 2019-06-23 07:11 | Hospitalist Progress Note ---
Date of Service June 23, 2019 Assessment & Plan (1) Hypoxia: 89yo F PMH anxiety/depression, memory impairment, recurrent UTIs presents with acute on chronic cognitive decline as well as hypoxia. 1) Altered Mental Status of unknown etiology (resolved) - Infectious cause - unlikely to be infectious source - afebrile, normal lactate, procalcitonin, WBC, blood cultures negative at 24 hours - Unasyn d/c'd at this time - Polypharmacy - patient's mentation and ability to communicate improved greatly after stopping all home meds and clearance of sedatives through system - currently still agitated and requires continuous reorienting to surroundings - MRI negative for intracranial changes or visible cause of mentation change - Palliative care consulted: comfort care. 2) Dementia - restarted donepazil, amantidine yesterdat. pt seems to be tolerating them well. - Zyprexa 2.5 mg QHS started yesterday for ing and delirium. No overnight concerns or issues, patient appears to have tolerated it well. 3) Acute on Chronic HFpEF (ef 70%) - Echo for CHF eval: limited study showing hyperdynamic left ventricle, no valvular disease. - third spacing of fluid on CTA lungs 2/2 low albumin and poor nutritional intake - minimal improvement of pleural fluid on CXR - lasix 20 IV switched to PO 4) Malnutrition - dietary consulted - oral diet as tolerated 5) hypoxia (resolved) - pt admitted needing 3L NC, did not use oxygen at home - now breathing well and saturating appropriately on room air - was likely secondary to fluid in lungs and over sedation FEN/GI: regular diet with boost supplement DVT ppx: SCDs Code: DNR; comfort care Dispo: med/surg DVT Px: lovenox (2) Memory problem: (3) Depression: (4) Anxiety:
[2019-06-23] MEDS: MEMANTINE HCL 5 MG TAB PO SCH ×2 (08:07→08:15)
[2019-06-23] MEDS: ESCITALOPRAM OXALATE 10 MG TAB PO SCH ×2 (08:07→08:14)
[2019-06-23] MEDS: FUROSEMIDE 20 MG TAB PO SCH (08:14)
--- NOTE | 2019-06-23 14:08 | Discharge Summary ---
Date of Service June 23, 2019 Admission HPI Per Admitting Provider Yazmin Arriaga is an 89-year-old female admitted medically on 06/16/2019 with reports of altered mental status and hypoxia. Patient was brought to the ED from [facility], after a significant decline in memory over the past 6 months. It is reported that patient had previously been hospitalized for geriatric psychiatry treatment at [facility], and had previously had a psychiatric evaluation. Psychiatric consultation is requested during this admission to evaluate patient for "psychiatric polypharmacy in elderly." It is reported that the patient is prescribed buspirone 5 mg 3 times daily; divalproex to 50 mg twice daily; donepezil 10 mg nightly; memantine 10 mg every morning; Escitalopram 15 mg every morning; and mirtazapine 15 mg nightly. Decision was made by primary team to hold all psychotropic medications, due to concern and they were contributing to patient's confusion. At time of psychiatric evaluation, patient is observed to be sleeping comfortably in bed. No family or visitors are present at time of evaluation. Patient is aroused easily with verbal stimuli, telling this provider that she is "okay." She responds to the remainder of this providers questions with "okay." According to the patient, she is sleeping, eating, and caring for herself "okay." This provider quickly observe that even yes and no questions were answered with the phrase "okay." Patient is not able to verbalize any additional concerns at time of evaluation. Admission Exam Per Admitting Provider Constitutional: WD/WN, vitals as above + behavioral limitations (Patient difficult to engage for examination. Does not follow commands well) Eyes: Pt refused to open eyes Neck: normal visual inspection Respiratory: normal respiratory effort; no respiratory distress, no labored breathing, no retractions and no cough Auscultation: + diminished lung sounds (Pt would not roll, would not take deep breaths.) Cardiovascular: RRR, no murmur, no edema Gastrointestinal (Abdomen): normal bowel sounds, soft, nontender, no hepatosplenomegaly Musculoskeletal: no cyanosis or clubbing, extremities motor strength 5/5 Skin: no rashes, warm and dry Psychiatric: Orientation: alert; + not oriented x 3 (Would not answer orientation questions) Principal Diagnosis toxic metabolic encephalopathy, hypoxia, dementia Discharge Exam Constitutional + thin and cooperative; no acute distress and not ill appearing Neck normal visual inspection Respiratory normal respiratory effort; no respiratory distress, no labored breathing and no cough Auscultation: no crackles, no rhonchi and no wheezes Cardiovascular Rate/Rhythm: regular rate and regular rhythm Heart Sounds: normal S1 and normal S2; no gallop, no murmur and no cardiac rub Vessels: normal carotid upstroke and posterior tibial pulses present Extremities: no calf tenderness, no pedal edema and no edema Gastrointestinal (Abdomen) Inspection/Auscultation: abdomen normal to inspection and normal bowel sounds; abdomen not distended Percussion/Palpation: abdomen soft; abdomen nontender, no guarding, abdomen not rigid and no abdominal mass Psychiatric A+Ox3, euthymic affect Orientation: alert and cooperative Discharge Data Allergies Allergy/AdvReac Type Severity Reaction Status Date / Time No Known Allergies Allergy Verified 06/15/19 21:03 Consultations 06/15/19 23:13 ED Decision to Admit Stat 06/16/19 01:40 Consult Case Management - Discharge Planning Routine 06/17/19 15:59 Consult Psychiatry Routine 06/19/19 14:08 Consult Palliative Care Routine Ordered Studies 06/15/19 22:27 CT angio chest PE protocol Stat 06/18/19 09:47 MR brain wo con Routine Hospital Course (1) Hypoxia: 89yo F PMH anxiety/depression, memory impairment, recurrent UTIs presents with acute on chronic cognitive decline as well as hypoxia. 1) Toxic Metabolic Encephalopathy [facility] with acute altered mental status of unknown origin. Daughter was concerned that she was being overmedicated which was causing her delirium. All psychiatric medications were held on admission to allow washout and re-establishment of patient's baseline mental status. After 2 days of washout Yazmin slowly returned to baseline behavior per daughter's description. She was intermittently agitated and delirious depending on time of day and presence of her daughter near her. She did have a fever accompanied by hypotension and tachycardia at one point which made us concerned for occult infection and was started on Unasyn for empiric treatment of aspiration pneumonia. WBC, procalcitonin, blood cultures and lactate were all normal going forward and she continued to be afebrile so Unasyn was removed from treatment regimen. MRI was negative for subclinical strokes. 2) Dementia -Given that her encephalopathy appeared to relate to her medications, med list was reviewed with scrutiny. -With the severity of her dementia it is not clear if the Aricept or Namenda are helping anymore. Given that the Namenda would be the least likely to be beneficial, this was held. We would recommend following her mental status over the next 2 to 4 weeks off of the Namenda, and then if it is clear that she is not having any worsening off of it, would give consideration to stopping the Aricept. If stopping the Aricept is met with no adverse problems, or possibly even with improvement in her appetite, then we would leave both of these off of her med list indefinitely. On the other hand if it appears that there is any memory decline with stopping either of them, or a clear increase in agitation after stopping the Aricept, then they could be restarted. In terms of management of her severe agitation, certainly nonpharmacologic means should be utilized as best as possible first. If pharmacologic management is required, utilize Zyprexa as needed versus alprazolam as neededdiscussed with the daughter the risks and benefits of both, that generally the antipsychotics have more of a track record of management and agitated dementia, but do come with risk of oversedation and (with repeated and prolonged use) long QT related arrhythmias; the daughter had questioned whether or not resuming alprazolam could be helpfulwe discussed that for the most part with dementia this will create a period of calming with a worsening delirium afterwards, but since the patient herself seems to have tolerated it for quite a while, it would be reasonable for a careful therapeutic trial as an alternative to an antipsychotic. Either way her meds will need to be slowly and carefully adjusted and she will need to be followed closely. 3) Hypoxia with Acute on Chronic HFpEF (ef 70%) Echo done for CHF eval: limited study showing hyperdynamic left ventricle, no valvular disease. Concern for PE on admission given new onset 3L NC requirement; CTA in ED negative for PE and showed third spacing of fluid into lungs likely secondary to low albumin, poor nutritional intake. Improvement of oxygen requirements back to 92% sat on room air after treatment with IV lasix and eventual switch to 20 mg PO lasix daily. Consider BMP in one week to re-eval electrolyte status. 4) Malnutrition - dietary consulted. oral diet as tolerated with Boost supplements. 5) Anxiety, depression - Escitalopram 10 mg daily restarted after stabilization All other chronic medical conditions managed per home medication regimens. (2) Memory problem: (3) Depression: (4) Anxiety: Total Time Total Time Spent Total Time Spent (In Minutes): Greater than 30 Discharge Plan Discharge Items Patient Disposition: Transfer Intermediate Fac Reason For Visit: HYPOXIA, AMS Discharge Diagnosis: dementia, altered mental status Activity: Resume your previous activity Non-emergency contact: Primary Care Provider and Psychiatrist Call non-emergency contact if: you have any medication questions and your temperature is above 101 Follow-up/Referrals: Jhoan Mullen MD [Primary Care Provider] - Diet: Regular Addtl Attending Provider Instructions: 89yo F PMH anxiety/depression, memory impairment, recurrent UTIs presents with acute on chronic cognitive decline as well as hypoxia. 1) Altered Mental Status of unknown etiology (resolved) - Infectious cause - unlikely to be infectious source - afebrile, normal lactate, procalcitonin, WBC, blood cultures negative at 24 hours - Unasyn d/c'd at this time - Polypharmacy - patient's mentation and ability to communicate improved greatly after stopping all home meds and clearance of sedatives through system - currently still agitated and requires continuous reorienting to surroundings - MRI negative for intracranial changes or visible cause of mentation change - Palliative care consulted: comfort care. 2) Dementia - Memantine started but questionable benefit. Discontinued at this time. Can consider restarting in the future if patient establishes a baseline functionality. - Donepazil restarted along with Memantine, patient handling this better at this time. Seems to calm her without sedation side effect. Re-evaluate at 2-4 weeks to assess if patient is experiencing side effects. - Zyprexa 2.5 mg QHS PRN for agitation. Pt tends to be more delirious and sedated when scheduled. - lexapro restarted 10mg daily for anxiety 3) Acute on Chronic HFpEF (ef 70%) - Echo for CHF eval: limited study showing hyperdynamic left ventricle, no valvular disease. - third spacing of fluid on CTA lungs 2/2 low albumin and poor nutritional intake - lasix 20 IV switched to PO 4) Malnutrition - dietary consulted - oral diet as tolerated 5) hypoxia (resolved) - pt admitted needing 3L NC, did not use oxygen at home - now breathing well and saturating appropriately on room air - was likely secondary to fluid in lungs and over sedation FEN/GI: regular diet with boost supplement DVT ppx: SCDs Code: DNR; comfort care Dispo: med/surg DVT Px: lovenox Pending Studies at Discharge: No Stand-Alone Forms: My [facility] Skilled Items Patient informed of condition?: Yes DNR: Yes Discharge Level of Care: Acute rehab Communicable Disease: No Discharge Prognosis: Stable Lines: None Urinary Catheter: Yes Medications and DC Order Prescriptions: New olanzapine 2.5 mg Tablet 2.5 mg PO HS PRN (Reason: Agitation) Qty: 30 RF: 0 furosemide 20 mg Tablet 20 mg PO QAM Qty: 30 RF: 0 Continued vitamin B complex tablet 1 tab PO DAILY Qty: 90 RF: 2 acetaminophen 500 mg tablet 500 mg PO Q4H MDD 3 gms APAP/24 Hours PRN (Reason: Fever Or Pain) RF: 0 calcium carbonate-vitamin D3 600 mg(1,500mg) -400 unit tablet 1 tab PO QAM RF: 0 sennosides [senna] 8.6 mg Tablet 8.6 mg PO DAILY PRN (Reason: Constipation) RF: 0 ibuprofen 200 mg Tablet 200 mg PO Q24H PRN (Reason: Pain) RF: 0 donepezil 10 mg tablet 10 mg PO QPM RF: 0 Changed escitalopram oxalate 10 mg tablet 10 mg PO DAILY Qty: 0 RF: 0 Discontinued buspirone 5 mg tablet 5 mg PO TID Qty: 90 RF: 2 divalproex [Depakote] 125 mg tablet,delayed release (DR/EC) 250 mg PO BID Qty: 120 RF: 2 ciprofloxacin HCl 250 mg tablet 250 mg PO BID RF: 0 mirtazapine 15 mg tablet 15 mg PO HS RF: 0 memantine [Namenda] 10 mg tablet 10 mg PO DAILY RF: 0 Discharge Orders: Discharge Order (Routine); Ordered 06/23/19 Ordered By: Flores Oconnell Admission Data Admit Date/Time: 06/16/19 01:03 Attending Provider: Magan Boyer Admit Provider: Keisha Penny Primary Care Provider: Jhoan Mullen Other Providers: Kemal Kapoor ; Denise Treviño ; Aimee Parr ; Radha Baca [facility] ; Chavo Goodwin Other Interventions: Discharge Summary Assessment (RN) Last Done: 06/23/19 12:15 DC Date/Time DO NOT enter until pt leaves facility: 06/23/19 13:46 Supervising Physician Co-Signing Physician Notes I personally examined the patient and verified all cruz points of history and exam, discussed case, and agree with decision making with Dr Oconnell. Patient herself is pleasantly confused, repeatedly asking me who I am as well as watching TV and talking about the animals on the TV. Extensive discussions with patient's daughter on plans of medicationsas outlined above under dementia. Vitals noted, in general she is awake and alert pleasantly confused and in no distress. HEENT normocephalic atraumatic mucous membranes are moist. Breathing unlabored no accessory muscle use good effort. Skin shows no rashes no pallor or icterus. No focal neuro deficits. Altered mental statusseems to have been polypharmacy related and has improved. Stable for transfer to SNF. Dementiaof only just met her today, but the impression I am able to glean from her background history as well as from interacting with her now is that she seems to have probably more towards severe dementia. Obviously this will need to be followed more closely in a continuity setting to truly discern, but given the severity of her dementia I doubt she is garnering benefit from Aricept or Namenda in slowing her decline given how much it appears she has declined. And to try to avoid further polypharmacy, we have outlined the above-noted sequential discontinuation and Namenda with period of observation for a few weeks, followed by weaning and/or discontinuation of Aricept, with further observation. For her periods of agitation utilizing nonpharmacologic means as possible and utilizing either a therapeutic trial of low-dose of an atypical antipsychotic or (at the daughter's suggestion given the patient's long track record of utilizing it) a low-dose benzodiazepine, with the risks and benefits of both outlined to the family. Stable for transfer to SNF. Resident Activity Tracking Resident Involvement: Resident Care Provided Care Provided: Adult Hospital Medicine
--- NOTE | 2019-06-23 18:24 | Billing Data ---
Coding Level of Care Code D/C Day Management >30 mins
== END 2019-06-23 13:46 | DRG 91 ==
LOC: ED 20:15 → SUATTDRO 06-16 01:03 → 4W 06-16 01:03